=== PATIENT | male | born 1945 | race African-American/Black ===

== ENCOUNTER 2018-10-09 17:06 | Outpatient (CLI) | payer MEDICARE ==
[2018-10-09 18:09] LABS: INR-International Normal Ratio 1.9; PTT 38.2 SEC (22.9-36.1); Prothrombin Time 21.8 SEC (12.0-14.7)
[2018-10-09 18:22] LABS: ALT (SGPT) 18 U/L (8-55); AST (SGOT) 16 U/L (5-34); Albumin 3.5 g/dL (3.4-4.8); Alkaline Phosphatase 110 U/L (40-150); Anion Gap 10 mmol/L (10-20); BUN (Urea Nitrogen) 22 mg/dL (8.4-25.7); Bilirubin, Total 0.5 mg/dL (0.2-1.2); Calc. Creatinine Clearance 0 mL/min (70-130); Carbon Dioxide 31 mmol/L (23-31); Chloride 108 mmol/L (98-107); Estimated GFR-MDRD 53; Globulin 3.7 g/dL (2.4-3.5); Glucose 100 mg/dL (83-110); Potassium 4.1 mmol/L (3.5-5.1); Protein, Total 7.2 g/dL (5.8-8.1); Sodium 145 mmol/L (136-145)
[2018-10-09 18:43] LABS: #Basophils 0.1 thou/uL (0.0-0.2); #Eosinphils 0.2 thou/uL (0.0-0.7); #Lymphocytes 1.7 thou/uL (1.20-3.40); #Monocytes 0.4 thou/uL (0.11-0.59); %Basophils 1.1 % (0.0-1.0); %Eosinophils 3.2 % (0.0-10.0); %Lymphocytes 31.4 % (21.0-51.0); %Monocytes 7.9 % (0.0-10.0); %Neutrophils 56.5 % (42.0-75.0); Anisocytosis SLIGHT = 6-15 cells (100X) (0-5/hpf); Elliptocytes SLIGHT = 2-5 cells (100X) (0-1/hpf); Hypochromia SLIGHT = 6-15 cells (100X) (0-5/hpf); MDiff Complete? YES; Mean Corpuscular Hemoglobin 29.1 pg (27.0-31.0); Mean Corpuscular Volume 97.2 fL (78.0-98.0); Mean Platelet Volume 10.4 fL (7.4-10.4); PLT Morphology Comment Appears Decreased; Platelet Count 124 thou/uL (130-400); RBC Distribution Width 14.8 % (11.5-14.5); Red Blood Cell (RBC) Count 3.78 mill/uL (4.70-6.10); White Blood Cell (WBC) Count 5.3 thou/uL (4.8-10.8)
== END 2018-10-09 17:07 | disposition home or self-care (01) ==
LOC: LABBT 17:06
PROVIDERS: ATTEND Surgery
DX: Z01.818 Encounter for other preprocedural examination (principal); K40.90 Unilateral inguinal hernia, without obstruction or gangrene, not specified as recurrent
CPT/HCPCS: 80053; 85025; 85610; 85730

== ENCOUNTER 2018-10-13 06:03 | Day surgery (SDC) | payer MEDICARE ==
[2018-10-09 17:27] VITALS: BMI 29.8
[2018-10-13] MEDS ORDERED: Bupivacaine/Epinephrine 0.25% 30 ML VIAL ONE (06:35)
[2018-10-13 07:04] LABS: INR-International Normal Ratio 1.1; PTT 25.6 SEC (22.9-36.1); Prothrombin Time 13.8 SEC (12.0-14.7)
[2018-10-13] MEDS ORDERED: Fentanyl 100 MCG/2 ML VIAL ONE ×2 (07:28→09:00)
[2018-10-13] MEDS ORDERED: CEFAZOLIN 2 GM/50 ML BAG ONE (07:31)
--- NOTE | 2018-10-13 10:23 | OP ---
DATE OF PROCEDURE: 10/13/2018 PREOPERATIVE DIAGNOSIS: Right inguinal hernia. SURGEON: Dennis Zuniga M.D. PROCEDURE: Right inguinal hernia repair with mesh. INDICATIONS: This is a 73-year-old male who has a painful groin bulge in the right groin. FINDINGS: Right direct inguinal hernia. PROCEDURE IN DETAIL: After informed consent was obtained, the patient was taken to the operating elie m and given general endotracheal anesthesia. He was placed in the supine position. His groin area w as prepped and draped in usual fashion. Local anesthesia infiltrated subcutaneously and deep. A tra nsverse inguinal incision was performed. The subcu divided sharply. There was quite a bit of scar t issue in the area, almost as if it was a recurrent hernia. The external oblique fascia was incised i n direction of its fibers through the external ring. Then, the external oblique fascia was carefully dissected off of the floor as well as the cord structures. He had a large hernia that paralleled to the cord down into the scrotum. This was dissected out and off of the cord structures down to the i nternal ring, then it was circumscribed circumferentially at the internal ring and reduced. Reductio n was maintained with a large PHSC mesh placed in the preperitoneal space, layered anteriorly, suture d to the pubic tubercle with a 2-0 Prolene suture, tucked under the external oblique fascia laterally . Then a notch was cut out for the spermatic cord. Hemostasis was assured. The cord was placed moiz tomic. The external oblique fascia closed with a running 3-0 Vicryl. Martinez's closed with interrupt ed 3-0 Vicryl and the skin closed with a running subcuticular 4-0 Rapide. Steri-Strips applied. Juanpablo rile bandage applied. The patient tolerated the procedure well and was transferred to recovery in go od condition. Sponge and needle count verified correct x2.
[2018-10-13] MEDS ORDERED: HYDROcodone/Acetaminophen 5/325 mg Tablet ONE (11:23)
[2018-10-13] MEDS ORDERED: Lidocaine 1% PF 5 ML VIAL ONE (13:07)
[2018-10-13] MEDS ORDERED: PHENYLEPHRINE-NS 100 MCG/ML 10 ML SYRINGE ONE (13:07)
[2018-10-13] MEDS ORDERED: PROPOFOL 200 MG/20 ML VIAL ONE (13:07)
[2018-10-13] MEDS ORDERED: Ondansetron PF 4 MG/2 ML Vial ONE (13:07)
== END 2018-10-13 11:45 | disposition home or self-care (01) ==
LOC: SDC 06:03
PROVIDERS: ATTEND Surgery
PROC: 0YU50JZ Supplement Right Inguinal Region with Synthetic Substitute, Open Approach (ICD-10-PCS; principal; 2018-10-13)
DX: K40.90 Unilateral inguinal hernia, without obstruction or gangrene, not specified as recurrent (principal); E78.5 Hyperlipidemia, unspecified; I10 Essential (primary) hypertension; E11.9 Type 2 diabetes mellitus without complications; I42.9 Cardiomyopathy, unspecified; I25.10 Atherosclerotic heart disease of native coronary artery without angina pectoris; I48.0 Paroxysmal atrial fibrillation; E78.00 Pure hypercholesterolemia, unspecified; Z91.19 Patient's noncompliance with other medical treatment and regimen; Z79.4 Long term (current) use of insulin; Z79.899 Other long term (current) drug therapy
CPT/HCPCS: 49505; 82962; 85610; 85730; 96374; C1781; 36415; 36416; J2001; J2405; J2704; J3010

== ENCOUNTER 2019-02-08 20:18 | Inpatient (IN) | payer MEDICARE ==
[~2019-02-08 20:18] MED LIST: Aspirin Chewable 81 MG TAB ONE; Heparin 10,000 UNITS/ 10 ML VIAL ONE; Nitroglycerin 50 MG/250 ML BOT ONE; Sodium Chloride 0.9% 1,000 ML BAG ONE
[2019-02-08] MEDS ORDERED: Heparin 10,000 UNITS/1 ML VIAL ONE (20:44)
[2019-02-08 21:05] LABS: ALT (SGPT) 48 U/L (8-55); AST (SGOT) 255 U/L (5-34); Albumin 3.7 g/dL (3.4-4.8); Alkaline Phosphatase 105 U/L (40-150); Anion Gap 13 mmol/L (10-20); BUN (Urea Nitrogen) 24 mg/dL (8.4-25.7); Bilirubin, Total 0.6 mg/dL (0.2-1.2); CK (CPK) 2577 U/L (30-200); Calc. Creatinine Clearance 0 mL/min (70-130); Calcium 9.4 mg/dL (7.8-10.44); Carbon Dioxide 22 mmol/L (23-31); Chloride 106 mmol/L (98-107); Estimated GFR-MDRD 49; Globulin 4.2 g/dL (2.4-3.5); Glucose 222 mg/dL (83-110); Lipase 4 U/L (8-78); Potassium 4.5 mmol/L (3.5-5.1); Protein, Total 7.9 g/dL (5.8-8.1); Sodium 136 mmol/L (136-145)
[2019-02-08 21:06] LABS: INR-International Normal Ratio 1.1; PTT 30.9 SEC (22.9-36.1); Prothrombin Time 14.5 SEC (12.0-14.7)
[2019-02-08 21:17] LABS: #Eosinphils 0.1 thou/uL (0.0-0.7); #Monocytes 0.8 thou/uL (0.11-0.59); #Neutrophils 7.8 thou/uL (1.40-6.50); %Basophils 0.2 % (0.0-1.0); %Eosinophils 0.6 % (0.0-10.0); %Lymphocytes 10.1 % (21.0-51.0); %Monocytes 8.6 % (0.0-10.0); %Neutrophils 80.4 % (42.0-75.0); Hemoglobin 12.4 g/dL (14.0-18.0); Mean Corpuscular HGB CONC 30.6 g/dL (32.0-36.0); Mean Corpuscular Hemoglobin 29.7 pg (27.0-31.0); Mean Corpuscular Volume 97.2 fL (78.0-98.0); Mean Platelet Volume 11.2 fL (7.4-10.4); Platelet Count 113 thou/uL (130-400); Platelet Morphology Comment Appears Decreased; Red Blood Cell (RBC) Count 4.17 mill/uL (4.70-6.10); White Blood Cell (WBC) Count 9.7 thou/uL (4.8-10.8)
[2019-02-08] MEDS ORDERED: Bivalirudin 250 MG VIAL ONE (21:41)
[2019-02-08 21:42] LABS: CKMB 169.4 ng/mL (0-6.6)
[2019-02-08] MEDS ORDERED: Clopidogrel Bisulfate 300 MG TAB ONE (21:49)
[2019-02-08] MEDS ORDERED: Nitroglycerin 0.4 MG TAB (25 Tab Bottle) SL PRN (22:14)
[2019-02-08] MEDS ORDERED: Morphine 2 MG/ML SYRINGE SLOW IVP PRN (22:14)
[2019-02-08] MEDS ORDERED: Nitroglycerin 50 MG/250 ML BOT 250 ML IVPB SCH (22:15)
[2019-02-08] MEDS ORDERED: Sodium Chloride 0.9% 1,000 ML IV SCH (22:15)
--- NOTE | 2019-02-08 22:56 | RAD ---
PORTABLE AP CHEST X-RAY 02/08/19 HISTORY: Chest pain. COMPARISON: 02/03/17. FINDINGS: Dual lead left subclavian cardiac AICD device remains in place. The cardiac silhouette is enlarged. P ulmonary vasculature is at the upper limits of normal but also magnified by projection. No consolidat ion or pleural is appreciated. Vascular calcifications are seen in the thoracic aorta. There has been no interval change from prior exam. IMPRESSION: Stable chest with cardiomegaly and pulmonary vasculature at the upper limits of normal. POS: MARTINEZ
--- NOTE | 2019-02-09 03:02 | HP ---
HISTORY OF PRESENT ILLNESS: Joe Red is a 73-year-old black male, that I have followed since March 2003. At that time, he was found to have a nonischemic cardiomyopathy and underwent cardiac catheterization. His ejection fraction was 30% to 35%. There was a 30% mid LAD lesion and 10% mid RCA lesion. He has continued to have poor left ventricular function, and ultimately had a dual-chamber ICD placed. He also underwent flutter ablation by Dr. Hopson in June 2011 and atrial fibrillation ablation in April 2013. He has been maintained on warfarin; since that time. He continues to have short episodes of a fib lasting approximately 30 seconds, but nothing prolonged. He had not been seen for several years and has always been noncompliant with followups. He was seen in the office in September 2018 for preoperative evaluation. He underwent Lexiscan Cardiolite testing, which revealed no evidence of ischemia or fixed defect. There were septal akinesis and normal myocardial thickening. Ejection fraction was 37%. Echocardiogram at that time revealed ejection fraction of 35% to 40% with moderate mitral regurgitation. He underwent right inguinal herniorrhaphy by Dr. Dennis Zuniga without incident. He has never had any significant chest discomfort. He does admit to not taking some of his medications recently, but he cannot remember what he has run out of. Then, this morning at 1 to 2 a.m., he noted substernal chest pressure. The pain has been continuous until he arrived to the emergency room around 8:30 or 9 p.m. Total duration of his pain has been at least 20 hours. The pain did somewhat worsen, so he came to the emergency room. He does admit to some shortness of breath and nausea, but no diaphoresis. 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 PAST SURGICAL HISTORY: ICD placement, ablation of atrial flutter and atrial fibrillation, inguinal herniorrhaphy. MEDICATIONS: 1. Atorvastatin 80 at bedtime. 2. Carvedilol 25 b.i.d. 3. Vitamin D3. 4. Zetia 10 mg at bedtime. 5. Furosemide 20 q.a.m. 6. Lantus 32 units b.i.d. 7. Levothyroxine 50 mcg daily. 8. Lisinopril 20 daily. 9. Warfarin 5 mg as directed. ALLERGIES: NONE. FAMILY HISTORY: Positive for coronary artery disease. REVIEW OF SYSTEMS: A 10-point review of systems is unremarkable. PHYSICAL EXAMINATION: VITAL SIGNS: Blood pressure 120/80, pulse of 110. HEENT: PERRL. NECK: Supple. CHEST: Clear. CARDIAC: S1 and S2 normal without any S3, S4, or murmurs. ABDOMEN: Normal bowel sounds without tenderness. EXTREMITIES: Revealed 2+ pretibial edema. NEUROLOGIC: Stable. LABORATORY DATA: EKG revealed sinus tachycardia with multiple PACs and new Q- waves V4 to V5 with 2 to [address]-segment elevation. These changes are new from previous EKG. Hemoglobin 12.4, hematocrit 40.6, white count 9700, and platelets 113,000. INR 1.1. Sodium 136, potassium 4.5, chloride 106, carbon dioxide 22, BUN 24, creatinine 1.67. CK 2577, CK-MB 169.4, troponin-I is 70.432. IMPRESSION: 1. Anterolateral ST-elevation myocardial infarction. 2. Nonischemic cardiomyopathy with last ejection fraction of 35% to 40%. 3. Status post dual-chamber ICD placement. 4. Hypertension. 5. Diabetes. 6. Hypercholesterolemia. 7. Positive family history. 8. History of cerebrovascular accident with aphasia in 2012. 9. Noncompliance with followups and apparently some medicines recently. 10. Paroxysmal atrial fibrillation, status post atrial flutter ablation and atrial fibrillation ablation. PLAN: The situation discussed with the patient. It was recommended that he undergo emergent catheterization. Risks were discussed including , myocardial infarction, dye reaction, vascular injury, CVA, transfusion, limb loss, renal loss, etc. Risks of intervention with stent placement were discussed including , myocardial infarction, emergent CABG, restenosis, stent thrombosis, vessel perforation, etc. With the need for chronic anticoagulation and his history of noncompliance, I would only place a bare-metal stent. Job ID: [id number] [facility]
[2019-02-09 03:28] LABS: CKMB 267.8 ng/mL (0-6.6)
[2019-02-09 04:16] LABS: Troponin I 601.184 ng/mL (< 0.028)
[2019-02-09 04:19] LABS: #Basophils 0.1 thou/uL (0.0-0.2); #Lymphocytes 1.1 thou/uL (1.20-3.40); #Monocytes 1.4 thou/uL (0.11-0.59); #Neutrophils 9.3 thou/uL (1.40-6.50); %Basophils 0.4 % (0.0-1.0); %Monocytes 12.1 % (0.0-10.0); %Neutrophils 78.4 % (42.0-75.0); Hemoglobin 10.1 g/dL (14.0-18.0); Mean Corpuscular HGB CONC 31.4 g/dL (32.0-36.0); Mean Corpuscular Hemoglobin 29.9 pg (27.0-31.0); Mean Corpuscular Volume 95.3 fL (78.0-98.0); Mean Platelet Volume 10.6 fL (7.4-10.4); Platelet Count 97 thou/uL (130-400); Red Blood Cell (RBC) Count 3.37 mill/uL (4.70-6.10); White Blood Cell (WBC) Count 11.9 thou/uL (4.8-10.8)
[2019-02-09 04:29] LABS: ALT (SGPT) 69 U/L (8-55); AST (SGOT) 481 U/L (5-34); Alkaline Phosphatase 77 U/L (40-150); Anion Gap 13 mmol/L (10-20); BUN (Urea Nitrogen) 23 mg/dL (8.4-25.7); Bilirubin, Total 0.6 mg/dL (0.2-1.2); Calc. Creatinine Clearance 68 mL/min (70-130); Calcium 8.6 mg/dL (7.8-10.44); Carbon Dioxide 19 mmol/L (23-31); Cardiac Risk 4.6 (Less than 4.5); Chloride 112 mmol/L (98-107); Cholesterol 143 mg/dl (< 200 Desired); Estimated GFR-MDRD 64; Globulin 3.3 g/dL (2.4-3.5); Glucose 177 mg/dL (83-110); HDL Cholesterol 31 mg/dL (>60 Neg Risk); LDL Cholesterol, Calculated 96 mg/dL; Potassium 4.5 mmol/L (3.5-5.1); Protein, Total 6.3 g/dL (5.8-8.1); Sodium 139 mmol/L (136-145); Triglycerides 78 mg/dL (Less than 150)
[2019-02-09] MEDS: Levothyroxine Sodium 50 MCG TAB PO SCH (05:14)
[2019-02-09] MEDS: Carvedilol 6.25 MG TAB PO SCH ×2 (07:45→16:32)
--- NOTE | 2019-02-09 08:43 | CCL ---
CARDIAC CATHETERIZATION REPORT: Date: 02/08/19 PROCEDURE: Coronary arteriography. Stent placement in the proximal to mid LAD. INDICATION: Anterolateral STEMI. DESCRIPTION OF PROCEDURE: The patient was brought from the emergency room to the cardiac lab associate and the right groin was prepped and draped in the usual fashion. 1% lidocaine was infiltrated. A 6 Lithuanian sheath was placed into the right femoral artery. A 6 Lithuanian right-4 diagnostic catheter was inserted for right coronary arteriography. This was removed and a 6 Lithuanian Luana left-4 guide was inserted. There was difficulty in torquing the left-4, so the decision was made to change to a Destination sheath. The 6 Lithuanian sheath was removed and a 6 Lithuanian Destination sheath was inserted over a wire. Due to the unusual takeoff of the left main, a left-3.5 guide was then inserted. An extra support wire was advanced to the distal LAD. There was a significant amount of difficulty in crossing the area of total stenosis, which had been closed for approximately 21 hours. Angiomax bolus and drip were given. Plavix 600 mg was given po. Emerge 3.0 x 15 mm balloon was then used to predilate the area. Rebel 3.0 x 32 mm stent was then positioned in the proximal to mid LAD and deployed. Final result was excellent with EVANGELINA 3 flow. The guide catheter was removed. The Destination sheath was exchanged over a wire for a 6 Lithuanian short sheath. This was then sutured in place and the patient was transferred to the CCU. RESULTS: CORONARY ARTERIOGRAPHY: 1. The left main was normal. 2. The LAD had a 50% proximal stenosis and was totally occluded in its mid portion. 3. The circumflex was normal. 4. The right coronary artery had a 20% mid stenosis and a 20% distal stenosis. INTERVENTION RESULTS: The initial 50% lesion was reduced to 0%. The occluded area was reduced to 0%. IMPRESSION: 1. One vessel coronary artery disease. 2. Successful bare metal stent placement in the proximal to mid LAD. [facility]
[2019-02-09] MEDS ORDERED: Dextrose 5% in Water 1,000 ML IV PRN (08:45)
[2019-02-09] MEDS ORDERED: Dextrose 50% Abboject 50 ML SYRINGE SLOW IVP PRN (08:45)
[2019-02-09] MEDS: Torsemide 20 MG TAB PO SCH (08:52)
[2019-02-09] MEDS: Clopidogrel Bisulfate 75 MG TAB PO SCH (08:52)
[2019-02-09] MEDS: Aspirin Chewable 81 MG TAB PO SCH (08:52)
[2019-02-09] MEDS: Ezetimibe 10 MG TAB PO SCH (08:52)
--- NOTE | 2019-02-09 12:33 | EKG ---
Test Reason : Blood Pressure : / mmHG Vent. Rate : 107 BPM Atrial Rate : 107 BPM P-R Int : 178 ms QRS Dur : 096 ms QT Int : 344 ms P-R-T Axes : 067 137 105 degrees QTc Int : 459 ms Sinus tachycardia with Premature atrial complexes Low voltage QRS Inferior infarct , age undetermined Anterolateral infarct , possibly acute * ACUTE NV * Abnormal ECG Confirmed by FRANKLYN FUENTES DO ([id number]), assistant film editor KAITLIN STONE ([id number]) on 02/09/2019 12:32:31 PM Referred By: Confirmed By:FRANKLYN FUENTES DO
--- NOTE | 2019-02-09 14:32 | PDOC.PN ---
- Subjective Encounter Start Date: 02/09/19 Encounter Start Time: 10:30 -: old records requested/rev Patient seen and examined. No new complaints. No overnight events - Objective MAR Reviewed: Yes Vital Signs & Weight: Vital Signs (12 hours) Temp BP Pulse Ox 02/09/19 07:45 112/77 02/09/19 07:14 99 02/09/19 07:00 98.4 F 02/09/19 03:00 98.5 F Weight Weight 206 lb 9.17 oz Most Recent Monitor Data Heart Rate from ECG 84 NIBP 106/72 NIBP BP-Mean 83 Respiration from ECG 22 SpO2 96 I&O: 02/08/19 02/09/19 02/10/19 06:59 06:59 06:59 Intake Total 1118 960 Output Total 200 350 Balance 918 610 Result Diagrams: 02/09/19 03:50 02/09/19 03:50 Additional Labs: Accuchecks 02/09/19 02/08/19 10:58 20:36 POC Glucose 130 H 174 H Radiology Reviewed by me: Yes EKG Reviewed by me: Yes Phys Exam - Physical Examination Constitutional: NAD HEENT: PERRLA, moist MMs, sclera anicteric Neck: no JVD, supple Respiratory: no wheezing, no rales, no rhonchi Cardiovascular: RRR, no significant murmur, no rub Gastrointestinal: soft, non-tender, no distention, positive bowel sounds Musculoskeletal: no edema, pulses present Neurological: non-focal, normal sensation Lymphatic: no nodes Psychiatric: normal affect, A&O x 3 Skin: no rash, normal turgor Dx/Plan (1) Anterolateral myocardial infarction Code(s): I21.09 - STEMI INVOLVING OTH CORONARY ARTERY OF ANTERIOR WALL Status : Acute (2) AICD (automatic cardioverter/defibrillator) present Code(s): Z95.810 - PRESENCE OF AUTOMATIC (IMPLANTABLE) CARDIAC DEFIBRILLATOR Status: Chronic (3) CKD (chronic kidney disease) stage 3, GFR 30-59 ml/min Code(s): N18.3 - CHRONIC KIDNEY DISEASE, STAGE 3 (MODERATE) Status: Chronic (4) Chronic anticoagulation Code(s): Z79.01 - BISTRO ATTENDANT (CURRENT) USE OF ANTICOAGULANTS Status: Chronic (5) Chronic systolic heart failure, ACC/AHA stage C Code(s): I50.22 - CHRONIC SYSTOLIC (CONGESTIVE) HEART FAILURE Status: Chronic (6) DM2 (diabetes mellitus, type 2) Status: Chronic (7) H/O: CVA (cerebrovascular accident) Code(s): Z86.73 - PRSNL HX OF TIA (TIA), AND CEREB INFRC W/O RESID DEFICITS Status: Chronic (8) HLD (hyperlipidemia) Code(s): E78.5 - HYPERLIPIDEMIA, UNSPECIFIED Status: Chronic (9) HTN (hypertension) Code(s): I10 - ESSENTIAL (PRIMARY) HYPERTENSION Status: Chronic (10) PAF (paroxysmal atrial fibrillation) Code(s): I48.0 - PAROXYSMAL ATRIAL FIBRILLATION Status: Chronic - Plan cont current plan of care * medication reviewed as below * symptomatic treatment * hyperglycemia protocol order started * cardiac management as per cardio. Review of Systems - Review of Systems ENT: negative: Ear Pain, Ear Discharge, Nose Pain, Nose Discharge, Nose Congestion, Mouth Pain, Mouth Swelling, Throat Pain, Throat Swelling, Other Respiratory: negative: Cough, Dry, Shortness of Breath, Hemoptysis, SOB with Excertion, Pleuritic Pain, Sputum, Wheezing Cardiovascular: negative: chest pain, palpitations, orthopnea, paroxysmal nocturnal dyspnea, edema, light headedness, other Gastrointestinal: negative: Nausea, Vomiting, Abdominal Pain, Diarrhea, Constipation, Melena, Hematochezia, Other Genitourinary: negative: Dysuria, Frequency, Incontinence, Hematuria, Retention , Other Musculoskeletal: negative: Neck Pain, Shoulder Pain, Arm Pain, Back Pain, Hand Pain, Leg Pain, Foot Pain, Other - Medications/Allergies Allergies/Adverse Reactions: Allergies Allergy/AdvReac Type Severity Reaction Status Date / Time No Known Allergies Allergy Verified 02/08/19 22:58 Medications: Current Medications Aspirin (Aspirin Chewable) 81 mg PO DAILY [facility] Last Admin: 02/09/19 08:52 Dose: 81 mg Atorvastatin Calcium (Lipitor) 80 mg PO [facility] Carvedilol (Coreg) 12.5 mg PO BID-[facility] Last Admin: 02/09/19 07:45 Dose: 12.5 mg Clopidogrel Bisulfate (Plavix) 75 mg PO DAILY [facility] Last Admin: 02/09/19 08:52 Dose: 75 mg Dextrose/Water (Dextrose 50%) 25 gm SLOW IVP PRN PRN PRN Reason: Hypoglycemia Ezetimibe (Zetia) 10 mg PO DAILY [facility] Last Admin: 02/09/19 08:52 Dose: 10 mg Glucagon (Glucagon) 1 mg IM PRN PRN PRN Reason: Hypoglycemia Dextrose/Water (D5w) 1,000 mls @ 0 mls/hr IV .Q0M PRN PRN Reason: Hypoglycemia Insulin Human Lispro (Humalog) 0 units SC .MODERATE SLIDING SC PRN PRN Reason: Moderate Correctional Scale Insulin Human Lispro (Humalog) 0 units SC .BEDTIME SLIDING SC PRN PRN Reason: Bedtime Correctional Scale Levothyroxine Sodium (Synthroid) 50 mcg PO 0600 [facility] Last Admin: 02/09/19 05:14 Dose: 50 mcg Morphine Sulfate (Morphine) 2 mg SLOW IVP Q4H PRN PRN Reason: Moderate Chest Pain (4-6) Last Admin: 02/08/19 23:31 Dose: 2 mg Nitroglycerin (Nitrostat) 0.4 mg SL Q5MIN PRN PRN Reason: Chest Pain Torsemide (Demadex) 20 mg PO DAILY [facility] Last Admin: 02/09/19 08:52 Dose: 20 mg Warfarin Sodium (Coumadin) 7.5 mg PO 1700 [facility]
[2019-02-09] MEDS: HumaLOG 300 UNITS/3 ML VIAL SC PRN (16:06)
--- NOTE | 2019-02-09 16:17 | EKG ---
Test Reason : POST CATH Blood Pressure : / mmHG Vent. Rate : 088 BPM Atrial Rate : 088 BPM P-R Int : 196 ms QRS Dur : 090 ms QT Int : 390 ms P-R-T Axes : 000 151 101 degrees QTc Int : 471 ms Suspect arm lead reversal, interpretation assumes no reversal Electronic atrial pacemaker Low voltage QRS Inferior infarct , age undetermined Anterolateral infarct , possibly acute * ACUTE OR * Abnormal ECG When compared with ECG of 22-MAY-2016 13:22, Significant changes have occurred Confirmed by DR. Misael ECHOLS ([id number]) on 02/09/2019 4:17:00 PM Referred By: Georgiana SHORT Confirmed By:DR. Misael ECHOLS
[2019-02-09] MEDS ORDERED: Warfarin Sodium 7.5 MG TAB PO SCH (17:00)
--- NOTE | 2019-02-09 20:44 | CON ---
DATE OF CONSULTATION: 02/09/2019 HISTORY OF PRESENT ILLNESS: Joe Red is a 73-year-old male. He presented with an ST-elevation myocardial infarction, had coronary stenting performed yesterday by Dr. Guzmán. He is stable, was actually awakened from sleep with no chest pain this morning. PAST MEDICAL HISTORY: Remarkable for 1. Left ventricular systolic dysfunction with nonischemic cardiomyopathy and an ejection fraction of 30% back in 2002. 2. Status post placement of a defibrillator. 3. Status post atrial flutter ablation in 2010. 4. Status post atrial fibrillation ablation in 2012. 5. Chronic anticoagulation. 6. Moderate mitral regurgitation on echo in 2018. 7. History of questionable medical compliance with medication. 8. History of hypertension. 9. Lipid disorder. 10. Diabetes. 11. History of cerebrovascular accident with speech difficulties in 2011. 12. Chronic kidney disease. 13. History of a herniorrhaphy in the past. MEDICATIONS: Prior to admission, 1. He is on atorvastatin. 2. Coreg. 3. Zetia. 4. Lasix. 5. Lantus. 6. Synthroid. 7. Lisinopril. 8. Warfarin. SOCIAL HISTORY: He is a nonsmoker, nondrinker. ALLERGIES: HE HAS NO DRUG ALLERGIES. FAMILY HISTORY: He has a family history of coronary artery disease. No history of lung disease in early age. REVIEW OF SYSTEMS: A 10-point review of systems completed, otherwise negative. PHYSICAL EXAMINATION: GENERAL: Today, he is flat in bed, in no distress. VITAL SIGNS: Blood pressure 107/76 this afternoon, heart rate is 90, respiratory rate is in the 20s. HEENT: Pupils are equally reactive. Sclerae are anicteric. Extraocular movements are full. NECK: Without lymphadenopathy. LUNGS: Clear. HEART: Regular rhythm. S1 and S2 are normal. He has a grade 2/6 systolic murmur. ABDOMEN: Soft and nontender. EXTREMITIES: Without clubbing, cyanosis or edema. LABORATORY DATA: White count 11.9, hemoglobin 10.1, platelets 97,000. Sodium 139, potassium 4.5, chloride 112, bicarb 19, BUN 23, creatinine 1.33. IMPRESSION: Status post coronary stenting, clinically stable. We will follow with the other physicians caring for TIME SPENT: This is a 70-minute consult, with greater than 50% of the time was spent on the unit coordinating care. Job ID: [id number] [facility]TD[facility]
[2019-02-09] MEDS: Atorvastatin Calcium 40 MG TAB PO SCH (21:32)
[2019-02-10 05:04] LABS: INR-International Normal Ratio 2.5; Prothrombin Time 27.3 SEC (12.0-14.7)
[2019-02-10 05:20] LABS: #Lymphocytes 1.2 thou/uL (1.20-3.40); #Monocytes 1.3 thou/uL (0.11-0.59); #Neutrophils 9.1 thou/uL (1.40-6.50); %Basophils 0.3 % (0.0-1.0); %Eosinophils 0.2 % (0.0-10.0); %Lymphocytes 10.1 % (21.0-51.0); %Monocytes 11.3 % (0.0-10.0); %Neutrophils 78.1 % (42.0-75.0); Hemoglobin 10.6 g/dL (14.0-18.0); Mean Corpuscular HGB CONC 31.3 g/dL (32.0-36.0); Mean Corpuscular Hemoglobin 29.8 pg (27.0-31.0); Mean Corpuscular Volume 95.2 fL (78.0-98.0); Mean Platelet Volume 11.9 fL (7.4-10.4); Platelet Count 87 thou/uL (130-400); RBC Distribution Width 14.2 % (11.5-14.5); Red Blood Cell (RBC) Count 3.56 mill/uL (4.70-6.10); White Blood Cell (WBC) Count 11.6 thou/uL (4.8-10.8)
[2019-02-10 05:24] LABS: Anion Gap 11 mmol/L (10-20); BUN (Urea Nitrogen) 32 mg/dL (8.4-25.7); Calc. Creatinine Clearance 49 mL/min (70-130); Calcium 9.1 mg/dL (7.8-10.44); Carbon Dioxide 21 mmol/L (23-31); Chloride 113 mmol/L (98-107); Estimated GFR-MDRD 45; Glucose 81 mg/dL (83-110); Potassium 4.6 mmol/L (3.5-5.1); Sodium 140 mmol/L (136-145)
[2019-02-10] MEDS: Levothyroxine Sodium 50 MCG TAB PO SCH (05:59)
[2019-02-10] MEDS: Clopidogrel Bisulfate 75 MG TAB PO SCH (07:40)
[2019-02-10] MEDS: Aspirin Chewable 81 MG TAB PO SCH (07:40)
[2019-02-10] MEDS: Torsemide 20 MG TAB PO SCH (07:40)
[2019-02-10] MEDS: Ezetimibe 10 MG TAB PO SCH (07:40)
[2019-02-10] MEDS: Carvedilol 6.25 MG TAB PO SCH (07:40)
--- NOTE | 2019-02-10 10:50 | PDOC.PN ---
- Subjective Encounter Start Date: 02/10/19 Encounter Start Time: 09:50 Patient seen and examined. No new complaints. No overnight events - Objective MAR Reviewed: Yes Vital Signs & Weight: Vital Signs (12 hours) Temp BP Pulse Ox 02/10/19 08:00 97 02/10/19 07:40 107/76 02/10/19 07:00 98.1 F 02/10/19 04:00 98.6 F 02/10/19 00:00 98.8 F Weight Weight 214 lb 8.156 oz Most Recent Monitor Data Heart Rate from ECG 86 NIBP 87/62 NIBP BP-Mean 70 Respiration from ECG 27 SpO2 93 I&O: 02/09/19 02/10/19 02/11/19 06:59 06:59 06:59 Intake Total 1118 1200 290 Output Total 200 1275 Balance 918 -75 290 Result Diagrams: 02/10/19 04:04 02/10/19 04:04 Additional Labs: Accuchecks 02/10/19 02/09/19 02/09/19 05:59 21:33 15:58 POC Glucose 84 113 H 169 H 02/09/19 10:58 POC Glucose 130 H EKG Reviewed by me: Yes (nsr) Phys Exam - Physical Examination Constitutional: NAD HEENT: PERRLA, moist MMs, sclera anicteric Neck: no JVD, supple Respiratory: no wheezing, no rales, no rhonchi Cardiovascular: RRR, no significant murmur, no rub Gastrointestinal: soft, non-tender, no distention, positive bowel sounds Musculoskeletal: no edema, pulses present Neurological: non-focal, normal sensation Lymphatic: no nodes Psychiatric: normal affect, A&O x 3 Skin: no rash, normal turgor Dx/Plan (1) Anterolateral myocardial infarction Code(s): I21.09 - STEMI INVOLVING OTH CORONARY ARTERY OF ANTERIOR WALL Status : Acute (2) AICD (automatic cardioverter/defibrillator) present Code(s): Z95.810 - PRESENCE OF AUTOMATIC (IMPLANTABLE) CARDIAC DEFIBRILLATOR Status: Chronic (3) CKD (chronic kidney disease) stage 3, GFR 30-59 ml/min Code(s): N18.3 - CHRONIC KIDNEY DISEASE, STAGE 3 (MODERATE) Status: Chronic (4) Chronic anticoagulation Code(s): Z79.01 - HALFWAY (CURRENT) USE OF ANTICOAGULANTS Status: Chronic (5) Chronic systolic heart failure, ACC/AHA stage C Code(s): I50.22 - CHRONIC SYSTOLIC (CONGESTIVE) HEART FAILURE Status: Chronic (6) DM2 (diabetes mellitus, type 2) Status: Chronic (7) H/O: CVA (cerebrovascular accident) Code(s): Z86.73 - PRSNL HX OF TIA (TIA), AND CEREB INFRC W/O RESID DEFICITS Status: Chronic (8) HLD (hyperlipidemia) Code(s): E78.5 - HYPERLIPIDEMIA, UNSPECIFIED Status: Chronic (9) HTN (hypertension) Code(s): I10 - ESSENTIAL (PRIMARY) HYPERTENSION Status: Chronic (10) PAF (paroxysmal atrial fibrillation) Code(s): I48.0 - PAROXYSMAL ATRIAL FIBRILLATION Status: Chronic - Plan cont current plan of care * medication reviewed as below * symptomatic treatment * medically stable * diabetes controlled * transfer to the [facility] will defer to cardiology * will monitor. Review of Systems - Review of Systems ENT: negative: Ear Pain, Ear Discharge, Nose Pain, Nose Discharge, Nose Congestion, Mouth Pain, Mouth Swelling, Throat Pain, Throat Swelling, Other Respiratory: negative: Cough, Dry, Shortness of Breath, Hemoptysis, SOB with Excertion, Pleuritic Pain, Sputum, Wheezing Cardiovascular: negative: chest pain, palpitations, orthopnea, paroxysmal nocturnal dyspnea, edema, light headedness, other Gastrointestinal: negative: Nausea, Vomiting, Abdominal Pain, Diarrhea, Constipation, Melena, Hematochezia, Other Genitourinary: negative: Dysuria, Frequency, Incontinence, Hematuria, Retention , Other Musculoskeletal: negative: Neck Pain, Shoulder Pain, Arm Pain, Back Pain, Hand Pain, Leg Pain, Foot Pain, Other Skin: negative: Rash, Lesions, Kenny, Bruising, Other - Medications/Allergies Allergies/Adverse Reactions: Allergies Allergy/AdvReac Type Severity Reaction Status Date / Time No Known Allergies Allergy Verified 02/08/19 22:58 Medications: Current Medications Aspirin (Aspirin Chewable) 81 mg PO DAILY [facility] Last Admin: 02/10/19 07:40 Dose: 81 mg Atorvastatin Calcium (Lipitor) 80 mg PO HS [facility] Last Admin: 02/09/19 21:32 Dose: 80 mg Carvedilol (Coreg) 12.5 mg PO BID-[facility] Last Admin: 02/10/19 07:40 Dose: 12.5 mg Clopidogrel Bisulfate (Plavix) 75 mg PO DAILY [facility] Last Admin: 02/10/19 07:40 Dose: 75 mg Dextrose/Water (Dextrose 50%) 25 gm SLOW IVP PRN PRN PRN Reason: Hypoglycemia Ezetimibe (Zetia) 10 mg PO DAILY [facility] Last Admin: 02/10/19 07:40 Dose: 10 mg Glucagon (Glucagon) 1 mg IM PRN PRN PRN Reason: Hypoglycemia Dextrose/Water (D5w) 1,000 mls @ 0 mls/hr IV .Q0M PRN PRN Reason: Hypoglycemia Insulin Human Lispro (Humalog) 0 units SC .MODERATE SLIDING SC PRN PRN Reason: Moderate Correctional Scale Last Admin: 02/09/19 16:06 Dose: 2 unit Insulin Human Lispro (Humalog) 0 units SC .BEDTIME SLIDING SC PRN PRN Reason: Bedtime Correctional Scale Levothyroxine Sodium (Synthroid) 50 mcg PO 0600 [facility] Last Admin: 02/10/19 05:59 Dose: 50 mcg Morphine Sulfate (Morphine) 2 mg SLOW IVP Q4H PRN PRN Reason: Moderate Chest Pain (4-6) Last Admin: 02/08/19 23:31 Dose: 2 mg Nitroglycerin (Nitrostat) 0.4 mg SL Q5MIN PRN PRN Reason: Chest Pain Torsemide (Demadex) 20 mg PO DAILY [facility] Last Admin: 02/10/19 07:40 Dose: 20 mg Warfarin Sodium (Coumadin) 7.5 mg PO 1700 [facility] Last Admin: 02/09/19 16:33 Dose: 7.5 mg
[2019-02-10] MEDS: HumaLOG 300 UNITS/3 ML VIAL SC PRN ×2 (17:06→20:24)
[2019-02-10] MEDS: Atorvastatin Calcium 40 MG TAB PO SCH (20:30)
--- NOTE | 2019-02-10 23:49 | PRG ---
DATE OF SERVICE: 02/10/2019 SUBJECTIVE: Mr. Red has remained stable. He is sitting up in a chair. He is very pleasant and cooperative. OBJECTIVE: VITAL SIGNS: He is afebrile. Heart rate 80, blood pressure 103/69, respiratory rate in the teens. LUNGS: Clear. HEART: Regular rhythm. S1 and S2 are normal. ABDOMEN: Soft and nontender. EXTREMITIES: Without clubbing, cyanosis, or edema. LABORATORY DATA: White count 11.6, hemoglobin 10.6, platelets 87. Sodium 140, potassium 4.6, chloride 113, bicarb 21, BUN 32, creatinine 1.79. His creatinine bumped from 1.3 to 1.7. This perhaps is a little delayed effect of the contrast with his cardiac catheterization. IMPRESSION: 1. Myocardial infarction. 2. Status post coronary artery stenting. 3. Acute on chronic kidney disease. 4. History of a cerebrovascular accident with speech difficulties. He is, however, very pleasant and cooperative. We will continue supportive care. Job ID: [id number]
[2019-02-11 04:58] LABS: INR-International Normal Ratio 2.3; Prothrombin Time 25.5 SEC (12.0-14.7)
[2019-02-11 04:59] LABS: Anion Gap 11 mmol/L (10-20); BUN (Urea Nitrogen) 52 mg/dL (8.4-25.7); Calc. Creatinine Clearance 40 mL/min (70-130); Calcium 8.8 mg/dL (7.8-10.44); Carbon Dioxide 24 mmol/L (23-31); Chloride 110 mmol/L (98-107); Estimated GFR-MDRD 34; Glucose 130 mg/dL (83-110); Potassium 4.3 mmol/L (3.5-5.1); Sodium 141 mmol/L (136-145)
[2019-02-11 05:17] LABS: #Eosinphils 0.1 thou/uL (0.0-0.7); #Lymphocytes 1.3 thou/uL (1.20-3.40); #Monocytes 0.8 thou/uL (0.11-0.59); #Neutrophils 6.7 thou/uL (1.40-6.50); %Basophils 0.4 % (0.0-1.0); %Eosinophils 1.1 % (0.0-10.0); %Lymphocytes 14.6 % (21.0-51.0); %Monocytes 9.4 % (0.0-10.0); %Neutrophils 74.5 % (42.0-75.0); Hemoglobin 9.5 g/dL (14.0-18.0); Large Platelets SLIGHT; MDiff Complete? YES; Mean Corpuscular HGB CONC 31.3 g/dL (32.0-36.0); Mean Corpuscular Volume 95.8 fL (78.0-98.0); Mean Platelet Volume 11.8 fL (7.4-10.4); Platelet Count 91 thou/uL (130-400); Platelet Morphology Comment Appears Decreased; RBC Distribution Width 14.2 % (11.5-14.5); Red Blood Cell (RBC) Count 3.17 mill/uL (4.70-6.10)
[2019-02-11] MEDS: Levothyroxine Sodium 50 MCG TAB PO SCH (06:13)
[2019-02-11] MEDS: Carvedilol 6.25 MG TAB PO SCH ×2 (08:35→18:06)
[2019-02-11] MEDS: Aspirin Chewable 81 MG TAB PO SCH (08:49)
[2019-02-11] MEDS: Clopidogrel Bisulfate 75 MG TAB PO SCH (08:49)
[2019-02-11] MEDS: Ezetimibe 10 MG TAB PO SCH (08:49)
[2019-02-11] MEDS: Torsemide 20 MG TAB PO SCH (08:50)
[2019-02-11] MEDS ORDERED: Sodium Chloride 0.65% Nasal 44 ML BOT EA NARE PRN (09:11)
[2019-02-11] MEDS ORDERED: Zolpidem Tartrate 5 MG TAB PO PRN (09:11)
[2019-02-11] MEDS ORDERED: Diabetic Tussin 200 MG/10 ML UDCUP PO PRN (09:11)
[2019-02-11] MEDS ORDERED: hydrALAZINE 20 MG/ML VIAL SLOW IVP PRN (09:11)
[2019-02-11] MEDS ORDERED: Loperamide HCl 2 MG CAP PO PRN (09:11)
[2019-02-11] MEDS ORDERED: HYDROcodone/Acetaminophen 5/325 mg Tablet PO PRN (09:11)
[2019-02-11] MEDS ORDERED: Bisacodyl 5 MG TAB PO PRN (09:11)
[2019-02-11] MEDS ORDERED: Metoclopramide HCl 10 MG/2 ML VIAL IVP PRN (09:11)
[2019-02-11] MEDS ORDERED: Artificial Tears 18 DROP/0.9 ML EA EYE PRN (09:11)
[2019-02-11] MEDS ORDERED: Senokot S 8.6-50 MG TAB PO PRN (09:11)
[2019-02-11] MEDS ORDERED: Eucerin (Mineral Oil/Petrolatum,White) 30 gm Jar TOP PRN (09:11)
[2019-02-11] MEDS ORDERED: Cepastat Lozenges 1 LOZ PO PRN (09:11)
[2019-02-11] MEDS ORDERED: Loratadine 10 MG TAB PO PRN (09:11)
--- NOTE | 2019-02-11 09:11 | PDOC.PN ---
- Subjective Encounter Start Date: 02/11/19 Encounter Start Time: 06:30 pt is seated in chair, no chest pain, no dizziness or dyspnea - Objective MAR Reviewed: Yes Vital Signs & Weight: Vital Signs (12 hours) Temp 02/11/19 04:00 98.6 F 02/11/19 00:00 99.5 F Weight Weight 211 lb 6.773 oz Most Recent Monitor Data Heart Rate from ECG 91 NIBP 118/78 NIBP BP-Mean 91 Respiration from ECG 10 SpO2 99 I&O: 02/10/19 02/11/19 02/12/19 06:59 06:59 06:59 Intake Total 1200 1050 Output Total 1275 355 Balance -75 695 Result Diagrams: 02/11/19 04:24 02/11/19 04:24 Additional Labs: Accuchecks 02/11/19 02/10/19 02/10/19 04:24 20:24 15:40 POC Glucose 130 H 237 H 161 H 02/10/19 11:21 POC Glucose 119 H EKG Reviewed by me: Yes (nsr) Phys Exam - Physical Examination Constitutional: NAD HEENT: PERRLA, moist MMs, sclera anicteric, oral pharynx no lesions Neck: no JVD, supple Respiratory: no wheezing, no rales, no rhonchi Cardiovascular: RRR, no significant murmur, no rub Gastrointestinal: soft, non-tender, no distention, positive bowel sounds Musculoskeletal: no edema, pulses present Neurological: non-focal, normal sensation, moves all 4 limbs Lymphatic: no nodes Psychiatric: normal affect, A&O x 3 Skin: no rash, normal turgor Dx/Plan (1) Anterolateral myocardial infarction Code(s): I21.09 - STEMI INVOLVING OTH CORONARY ARTERY OF ANTERIOR WALL Status : Acute Comment: s/p BMS in LAD (2) AICD (automatic cardioverter/defibrillator) present Code(s): Z95.810 - PRESENCE OF AUTOMATIC (IMPLANTABLE) CARDIAC DEFIBRILLATOR Status: Chronic (3) CKD (chronic kidney disease) stage 3, GFR 30-59 ml/min Code(s): N18.3 - CHRONIC KIDNEY DISEASE, STAGE 3 (MODERATE) Status: Chronic (4) Chronic anticoagulation Code(s): Z79.01 - [employer] M[employer]ER (CURRENT) USE OF ANTICOAGULANTS Status: Chronic (5) Chronic systolic heart failure, ACC/AHA stage C Code(s): I50.22 - CHRONIC SYSTOLIC (CONGESTIVE) HEART FAILURE Status: Chronic (6) DM2 (diabetes mellitus, type 2) Status: Chronic (7) H/O: CVA (cerebrovascular accident) Code(s): Z86.73 - PRSNL HX OF TIA (TIA), AND CEREB INFRC W/O RESID DEFICITS Status: Chronic (8) HLD (hyperlipidemia) Code(s): E78.5 - HYPERLIPIDEMIA, UNSPECIFIED Status: Chronic (9) HTN (hypertension) Code(s): I10 - ESSENTIAL (PRIMARY) HYPERTENSION Status: Chronic (10) PAF (paroxysmal atrial fibrillation) Code(s): I48.0 - PAROXYSMAL ATRIAL FIBRILLATION Status: Chronic - Plan cont current plan of care * overall doing well after UT * diabetes controlled * continue current optimum medical therapy after UT as per cardiology * medication reviewed as below * symptomatic treatment. * monitor renal function Review of Systems - Review of Systems ENT: negative: Ear Pain, Ear Discharge, Nose Pain, Nose Discharge, Nose Congestion, Mouth Pain, Mouth Swelling, Throat Pain, Throat Swelling, Other Respiratory: negative: Cough, Dry, Shortness of Breath, Hemoptysis, SOB with Excertion, Pleuritic Pain, Sputum, Wheezing Cardiovascular: negative: chest pain, palpitations, orthopnea, paroxysmal nocturnal dyspnea, edema, light headedness, other Gastrointestinal: negative: Nausea, Vomiting, Abdominal Pain, Diarrhea, Constipation, Melena, Hematochezia, Other Genitourinary: negative: Dysuria, Frequency, Incontinence, Hematuria, Retention , Other Musculoskeletal: negative: Neck Pain, Shoulder Pain, Arm Pain, Back Pain, Hand Pain, Leg Pain, Foot Pain, Other - Medications/Allergies Allergies/Adverse Reactions: Allergies Allergy/AdvReac Type Severity Reaction Status Date / Time No Known Allergies Allergy Verified 02/08/19 22:58 Medications: Current Medications Aspirin (Aspirin Chewable) 81 mg PO DAILY [facility] Last Admin: 02/11/19 08:49 Dose: 81 mg Atorvastatin Calcium (Lipitor) 80 mg PO [facility] Last Admin: 02/10/19 20:30 Dose: 80 mg Carvedilol (Coreg) 6.25 mg PO BID-[facility] Clopidogrel Bisulfate (Plavix) 75 mg PO DAILY [facility] Last Admin: 02/11/19 08:49 Dose: 75 mg Dextrose/Water (Dextrose 50%) 25 gm SLOW IVP PRN PRN PRN Reason: Hypoglycemia Ezetimibe (Zetia) 10 mg PO DAILY [facility] Last Admin: 02/11/19 08:49 Dose: 10 mg Glucagon (Glucagon) 1 mg IM PRN PRN PRN Reason: Hypoglycemia Dextrose/Water (D5w) 1,000 mls @ 0 mls/hr IV .Q0M PRN PRN Reason: Hypoglycemia Insulin Human Lispro (Humalog) 0 units SC .MODERATE SLIDING SC PRN PRN Reason: Moderate Correctional Scale Last Admin: 02/10/19 17:06 Dose: 2 unit Insulin Human Lispro (Humalog) 0 units SC .BEDTIME SLIDING SC PRN PRN Reason: Bedtime Correctional Scale Last Admin: 02/10/19 20:24 Dose: 2 unit Levothyroxine Sodium (Synthroid) 50 mcg PO 0600 [facility] Last Admin: 02/11/19 06:13 Dose: 50 mcg Morphine Sulfate (Morphine) 2 mg SLOW IVP Q4H PRN PRN Reason: Moderate Chest Pain (4-6) Last Admin: 02/08/19 23:31 Dose: 2 mg Nitroglycerin (Nitrostat) 0.4 mg SL Q5MIN PRN PRN Reason: Chest Pain Torsemide (Demadex) 20 mg PO DAILY [facility] Last Admin: 02/11/19 08:50 Dose: 20 mg Warfarin Sodium (Coumadin) 7.5 mg PO 1700 [facility]
--- NOTE | 2019-02-11 16:18 | PRG ---
DATE OF SERVICE: 02/11/2019 SUBJECTIVE: Mr. Red did well overnight. He has no complaints. He is sitting in a chair. He denies chest pain or shortness of breath. I met with family and answered their questions. OBJECTIVE: VITAL SIGNS: Heart rate is 82, blood pressure 123/84, respiratory rate is in the 20s, and oximetry is in the high 90s. LUNGS: Remarkable for fine crackles at both bases. HEART: Regular rhythm. S1 and S2 are normal. ABDOMEN: Soft and nontender. LABORATORY DATA: White count 9, hemoglobin 9.5, and platelets 91,000. Sodium 141, potassium 4.3, chloride 110, bicarbonate 24, BUN 52, and creatinine 2.28. IMPRESSION: 1. Status post myocardial infarction with stenting this admission. 2. Acute on chronic kidney disease, probably needs to stay in a neutral or positive fluid balance for now. 3. History of cerebrovascular accident. We will continue to follow the other physicians following him. The weight is reported as 206, 214, and 211 pounds, these are not viable. Job ID: [id number]
[2019-02-11] MEDS ORDERED: Warfarin Sodium 7.5 MG TAB PO SCH (17:00)
[2019-02-11] MEDS: Atorvastatin Calcium 40 MG TAB PO SCH (20:13)
[2019-02-11] MEDS: HumaLOG 300 UNITS/3 ML VIAL SC PRN (21:07)
[2019-02-12] MEDS: Levothyroxine Sodium 50 MCG TAB PO SCH (05:34)
[2019-02-12 06:17] LABS: #Eosinphils 0.2 thou/uL (0.0-0.7); #Lymphocytes 1.2 thou/uL (1.20-3.40); #Monocytes 0.7 thou/uL (0.11-0.59); #Neutrophils 5.6 thou/uL (1.40-6.50); %Basophils 0.2 % (0.0-1.0); %Eosinophils 2.7 % (0.0-10.0); %Lymphocytes 15.1 % (21.0-51.0); %Monocytes 9.2 % (0.0-10.0); %Neutrophils 72.8 % (42.0-75.0); Hemoglobin 9.9 g/dL (14.0-18.0); Mean Corpuscular HGB CONC 30.8 g/dL (32.0-36.0); Mean Corpuscular Hemoglobin 29.6 pg (27.0-31.0); Mean Corpuscular Volume 96.1 fL (78.0-98.0); Platelet Count 123 thou/uL (130-400); RBC Distribution Width 14.2 % (11.5-14.5); Red Blood Cell (RBC) Count 3.34 mill/uL (4.70-6.10); White Blood Cell (WBC) Count 7.7 thou/uL (4.8-10.8)
[2019-02-12 06:22] LABS: INR-International Normal Ratio 1.9
[2019-02-12] MEDS: HumaLOG 300 UNITS/3 ML VIAL SC PRN ×3 (06:31→17:44)
[2019-02-12 06:34] LABS: Anion Gap 10 mmol/L (10-20); BUN (Urea Nitrogen) 58 mg/dL (8.4-25.7); Calc. Creatinine Clearance 45 mL/min (70-130); Calcium 8.8 mg/dL (7.8-10.44); Carbon Dioxide 25 mmol/L (23-31); Chloride 110 mmol/L (98-107); Estimated GFR-MDRD 40; Glucose 157 mg/dL (83-110); Potassium 4.6 mmol/L (3.5-5.1); Sodium 140 mmol/L (136-145)
[2019-02-12] MEDS: Ezetimibe 10 MG TAB PO SCH (08:28)
[2019-02-12] MEDS: Aspirin Chewable 81 MG TAB PO SCH (08:28)
[2019-02-12] MEDS: Carvedilol 6.25 MG TAB PO SCH ×2 (08:28→17:42)
[2019-02-12] MEDS: Clopidogrel Bisulfate 75 MG TAB PO SCH (08:28)
[2019-02-12] MEDS: Torsemide 20 MG TAB PO SCH (08:53)
--- NOTE | 2019-02-12 11:34 | PDOC.PN ---
- Subjective Encounter Start Date: 02/12/19 Encounter Start Time: 10:10 Patient seen and examined. No new complaints. No overnight events - Objective MAR Reviewed: Yes Vital Signs & Weight: Vital Signs (12 hours) Temp BP 02/12/19 08:28 115/78 02/12/19 04:00 98.2 F Weight Weight 210 lb 5.136 oz Most Recent Monitor Data Heart Rate from ECG 85 NIBP 111/73 NIBP BP-Mean 85 Respiration from ECG 15 SpO2 97 I&O: 02/11/19 02/12/19 02/13/19 06:59 06:59 06:59 Intake Total 1050 1330 Output Total 355 2575 Balance 695 -1245 Result Diagrams: 02/12/19 05:53 02/12/19 05:53 Additional Labs: Accuchecks 02/12/19 02/11/19 02/11/19 06:31 21:07 11:34 POC Glucose 167 H 218 H 144 H EKG Reviewed by me: Yes Phys Exam - Physical Examination Constitutional: NAD HEENT: PERRLA, moist MMs, sclera anicteric Neck: no JVD, supple Respiratory: no wheezing, no rales, no rhonchi Cardiovascular: RRR, no significant murmur, no rub Gastrointestinal: soft, non-tender, no distention, positive bowel sounds Musculoskeletal: no edema, pulses present Neurological: non-focal, normal sensation Lymphatic: no nodes Psychiatric: normal affect Skin: no rash, normal turgor Dx/Plan (1) Anterolateral myocardial infarction Code(s): I21.09 - STEMI INVOLVING OTH CORONARY ARTERY OF ANTERIOR WALL Status : Acute Comment: s/p BMS in LAD (2) AICD (automatic cardioverter/defibrillator) present Code(s): Z95.810 - PRESENCE OF AUTOMATIC (IMPLANTABLE) CARDIAC DEFIBRILLATOR Status: Chronic (3) CKD (chronic kidney disease) stage 3, GFR 30-59 ml/min Code(s): N18.3 - CHRONIC KIDNEY DISEASE, STAGE 3 (MODERATE) Status: Chronic (4) Chronic anticoagulation Code(s): Z79.01 - LONG-TERM (CURRENT) USE OF ANTICOAGULANTS Status: Chronic (5) Chronic systolic heart failure, ACC/AHA stage C Code(s): I50.22 - CHRONIC SYSTOLIC (CONGESTIVE) HEART FAILURE Status: Chronic (6) DM2 (diabetes mellitus, type 2) Status: Chronic (7) H/O: CVA (cerebrovascular accident) Code(s): Z86.73 - PRSNL HX OF TIA (TIA), AND CEREB INFRC W/O RESID DEFICITS Status: Chronic (8) HLD (hyperlipidemia) Code(s): E78.5 - HYPERLIPIDEMIA, UNSPECIFIED Status: Chronic (9) HTN (hypertension) Code(s): I10 - ESSENTIAL (PRIMARY) HYPERTENSION Status: Chronic (10) PAF (paroxysmal atrial fibrillation) Code(s): I48.0 - PAROXYSMAL ATRIAL FIBRILLATION Status: Chronic - Plan cont current plan of care * medication reviewed as below * symptomatic treatment * continue cardiac rehab * medically stable overall doing well. Review of Systems - Review of Systems ENT: negative: Ear Pain, Ear Discharge, Nose Pain, Nose Discharge, Nose Congestion, Mouth Pain, Mouth Swelling, Throat Pain, Throat Swelling, Other Respiratory: negative: Cough, Dry, Shortness of Breath, Hemoptysis, SOB with Excertion, Pleuritic Pain, Sputum, Wheezing Cardiovascular: negative: chest pain, palpitations, orthopnea, paroxysmal nocturnal dyspnea, edema, light headedness, other Gastrointestinal: negative: Nausea, Vomiting, Abdominal Pain, Diarrhea, Constipation, Melena, Hematochezia, Other Genitourinary: negative: Dysuria, Frequency, Incontinence, Hematuria, Retention , Other Musculoskeletal: negative: Neck Pain, Shoulder Pain, Arm Pain, Back Pain, Hand Pain, Leg Pain, Foot Pain, Other Skin: negative: Rash, Lesions, Kenny, Bruising, Other - Medications/Allergies Allergies/Adverse Reactions: Allergies Allergy/AdvReac Type Severity Reaction Status Date / Time No Known Allergies Allergy Verified 02/08/19 22:58 Medications: Current Medications Hydrocodone Bitart/Acetaminophen ([place] 5/325) 1 tab PO Q4H PRN PRN Reason: Moderate Pain (4-6) Artificial Tears (Tears Naturale) 2 drop EA EYE PRN PRN PRN Reason: Dry Eyes Aspirin (Aspirin Chewable) 81 mg PO DAILY [facility] Last Admin: 02/12/19 08:28 Dose: 81 mg Atorvastatin Calcium (Lipitor) 80 mg PO HS [facility] Last Admin: 02/11/19 20:13 Dose: 80 mg Bisacodyl (Dulcolax) 10 mg PO DAILYPRN PRN PRN Reason: Constipation Carvedilol (Coreg) 6.25 mg PO BID-[facility] Last Admin: 02/12/19 08:28 Dose: 6.25 mg Clopidogrel Bisulfate (Plavix) 75 mg PO DAILY [facility] Last Admin: 02/12/19 08:28 Dose: 75 mg Dextrose/Water (Dextrose 50%) 25 gm SLOW IVP PRN PRN PRN Reason: Hypoglycemia Ezetimibe (Zetia) 10 mg PO DAILY [facility] Last Admin: 02/12/19 08:28 Dose: 10 mg Glucagon (Glucagon) 1 mg IM PRN PRN PRN Reason: Hypoglycemia Guaifenesin (Robitussin Sf) 200 mg PO Q4H PRN PRN Reason: Cough Hydralazine HCl (Apresoline) 10 mg SLOW IVP Q4H PRN PRN Reason: SBP > 180 and HR < 70 Dextrose/Water (D5w) 1,000 mls @ 0 mls/hr IV .Q0M PRN PRN Reason: Hypoglycemia Insulin Human Lispro (Humalog) 0 units SC .MODERATE SLIDING SC PRN PRN Reason: Moderate Correctional Scale Last Admin: 02/12/19 06:31 Dose: 2 unit Insulin Human Lispro (Humalog) 0 units SC .BEDTIME SLIDING SC PRN PRN Reason: Bedtime Correctional Scale Last Admin: 02/11/19 21:07 Dose: 2 unit Levothyroxine Sodium (Synthroid) 50 mcg PO 0600 [facility] Last Admin: 02/12/19 05:34 Dose: 50 mcg Loperamide HCl (Imodium) 2 mg PO PRN PRN PRN Reason: Diarrhea/Loose Stools Loratadine (Claritin) 10 mg PO DAILYPRN PRN PRN Reason: Sinus Symptoms Metoclopramide HCl (Reglan) 5 mg IVP Q4H PRN PRN Reason: Nausea Mineral Oil/White Petrolatum (Eucerin Cream) 0 gm TOP BIDPRN PRN PRN Reason: Dry Skin Morphine Sulfate (Morphine) 2 mg SLOW IVP Q4H PRN PRN Reason: Moderate Chest Pain (4-6) Last Admin: 02/08/19 23:31 Dose: 2 mg Nitroglycerin (Nitrostat) 0.4 mg SL Q5MIN PRN PRN Reason: Chest Pain Senna/Docusate Sodium (Senokot S) 2 tab PO BID PRN PRN Reason: Constipation Last Admin: 02/11/19 12:28 Dose: 2 tab Sodium Chloride ([place] Nasal [place] 0.65%) 0 ml EA NARE QIDPRN PRN PRN Reason: Nasal Congestion Throat Lozenges (Cepastat Lozenges) 1 mike PO Q2H PRN PRN Reason: Sore Throat Torsemide (Demadex) 20 mg PO DAILY [facility] Last Admin: 02/12/19 08:53 Dose: 20 mg Warfarin Sodium (Coumadin) 7.5 mg PO 1700 [facility] Zolpidem Tartrate (Ambien) 5 mg PO HSPRN PRN PRN Reason: Insomnia
--- NOTE | 2019-02-12 12:20 | PRG ---
DATE OF SERVICE: 02/12/2019 SUBJECTIVE: Joe Red has no complaints. He is sitting in a bedside chair. He denies shortness of breath. He is afebrile. He is smiling and in a great mood today. OBJECTIVE: VITAL SIGNS: Blood pressure 115/78 and heart rate is 85. He is on room air. LUNGS: Clear. HEART: Regular rhythm. ABDOMEN: Soft and nontender. LABORATORY RESULTS: White count 7.7, hemoglobin 9.9, and platelets 123. Sodium 140, potassium 4.6, chloride 110, bicarb 25, BUN 58, and creatinine 2.01. IMPRESSION: 1. Status post myocardial infarction, requiring coronary artery stenting, clinically stable. 2. History of cerebrovascular accident. 3. History of defibrillator implantation. 4. Chronic kidney disease. 5. Diabetes. 6. Lipid disorder. 7. History of hypertension. 8. History of anticoagulation for atrial fibrillation. PLAN: Continue per Cardiology. Stable to move out of the critical care unit. Job ID: [id number]
--- NOTE | 2019-02-12 14:55 | CON ---
DATE OF CONSULTATION: 02/12/2019 REASON FOR ADMISSION: Chest pain. REASON FOR CONSULTATION: Chronic kidney disease. HISTORY OF PRESENT ILLNESS: This is a 73-year-old male with history of hypertension, hyperlipidemia, CVA, and CAD, came to the hospital with chest pain and was found to have anterolateral ST elevation VA and the patient does follow with me in the clinic for CKD. The patient was found to have elevated creatinine, which was getting better. No nausea or vomiting. No chest pain, shortness of breath. He is sitting up in the chair PAST MEDICAL HISTORY: Positive for hypertension, hyperlipidemia, type 2 diabetes, CVA, coronary artery disease, atrial fibrillation, and CKD. PAST SURGICAL HISTORY: ICD placement, ablation of atrial flutter, inguinal hernia repair. MEDICATIONS: 1. Lipitor. 2. Carvedilol. 3. Vitamin D3. 4. Zetia. 5. Furosemide. 6. Lantus. 7. Levothyroxine. 8. Lisinopril. 9. Warfarin. ALLERGIES: NO KNOWN DRUG ALLERGIES. FAMILY HISTORY: Positive for heart disease. SOCIAL HISTORY: No smoking, alcohol, or illicit drug abuse. REVIEW OF SYSTEMS: CONSTITUTIONAL: Negative for weight loss or gain, ability to conduct usual activities. SKIN: Negative for rash, itching. EYES: Negative for double vision, pain. ENT/MOUTH: Negative for nose bleeding, neck stiffness, pain, tenderness. CARDIOVASCULAR: Negative for palpitations, dyspnea on exertion, orthopnea. RESPIRATORY: Negative for shortness of breath, wheezing, cough, hemoptysis, fever or night sweats. GASTROINTESTINAL: Negative for poor appetite, abdominal pain, heartburn, nausea, vomiting, constipation, or diarrhea. GENITOURINARY: Negative for urgency, frequency, dysuria, nocturia. MUSCULOSKELETAL: Negative for pain, swelling. NEUROLOGIC/PSYCHIATRIC: Negative for anxiety, depression. ALLERGY/IMMUNOLOGIC: Negative for skin rash, bleeding tendency. PHYSICAL EXAMINATION: GENERAL: Reveals a well-built male, in no apparent distress. VITAL SIGNS: Temperature 98.2, pulse 78, respiratory rate 18, and blood pressure 115/78. HEENT: Atraumatic, normocephalic. Oral mucosa is moist. NECK: Supple. CARDIOVASCULAR: S1, S2 heard. Rate and rhythm regular. RESPIRATORY: Clear. GASTROINTESTINAL: Abdomen is soft. MUSCULOSKELETAL: No tenderness. DERMATOLOGIC: No skin rash. NEUROLOGIC: Alert and awake. PSYCHIATRIC: Mood and affect normal. LABORATORY DATA: Hemoglobin is 9.9. Potassium 4.6, BUN is 58, and creatinine is 2.01. ASSESSMENT AND PLAN: 1. Acute kidney injury, on chronic kidney disease, stage 3, with stable creatinine. 2. Edema, controlled. 3. Hypertension. 4. Anemia. Rule out any bleeding. Monitor hemoglobin closely. 5. Cardiorenal syndrome. Follow with Cardiology. Renal function is getting better. Avoid nephrotoxins at this point. Would avoid NATALIO inhibitor. During the hospitalization, currently on torsemide. We will follow. Job ID: [id number]
[2019-02-12] MEDS ORDERED: Warfarin Sodium 7.5 MG TAB PO SCH (17:00)
[2019-02-12] MEDS: Atorvastatin Calcium 40 MG TAB PO SCH (20:54)
[2019-02-13 05:21] VITALS: BMI 25.0
[2019-02-13 05:26] LABS: #Eosinphils 0.2 thou/uL (0.0-0.7); #Lymphocytes 1.1 thou/uL (1.20-3.40); #Monocytes 0.7 thou/uL (0.11-0.59); #Neutrophils 4.5 thou/uL (1.40-6.50); %Basophils 0.7 % (0.0-1.0); %Eosinophils 3.5 % (0.0-10.0); %Lymphocytes 16.1 % (21.0-51.0); %Monocytes 10.9 % (0.0-10.0); %Neutrophils 68.8 % (42.0-75.0); Hemoglobin 9.6 g/dL (14.0-18.0); Mean Corpuscular HGB CONC 30.9 g/dL (32.0-36.0); Mean Corpuscular Hemoglobin 29.7 pg (27.0-31.0); Mean Corpuscular Volume 96.1 fL (78.0-98.0); Mean Platelet Volume 11.1 fL (7.4-10.4); Platelet Count 144 thou/uL (130-400); RBC Distribution Width 14.1 % (11.5-14.5); Red Blood Cell (RBC) Count 3.24 mill/uL (4.70-6.10); White Blood Cell (WBC) Count 6.5 thou/uL (4.8-10.8)
[2019-02-13 05:27] LABS: INR-International Normal Ratio 1.7; Prothrombin Time 19.6 SEC (12.0-14.7)
[2019-02-13 05:37] LABS: Anion Gap 13 mmol/L (10-20); BUN (Urea Nitrogen) 55 mg/dL (8.4-25.7); Calc. Creatinine Clearance 48 mL/min (70-130); Calcium 8.9 mg/dL (7.8-10.44); Carbon Dioxide 24 mmol/L (23-31); Chloride 109 mmol/L (98-107); Estimated GFR-MDRD 43; Glucose 192 mg/dL (83-110); Potassium 4.6 mmol/L (3.5-5.1); Sodium 141 mmol/L (136-145)
[2019-02-13] MEDS: Levothyroxine Sodium 50 MCG TAB PO SCH (06:19)
[2019-02-13] MEDS: Carvedilol 6.25 MG TAB PO SCH (08:53)
[2019-02-13] MEDS: Clopidogrel Bisulfate 75 MG TAB PO SCH (08:53)
[2019-02-13] MEDS: Ezetimibe 10 MG TAB PO SCH (08:53)
[2019-02-13] MEDS: Aspirin Chewable 81 MG TAB PO SCH (08:53)
[2019-02-13] MEDS: Torsemide 20 MG TAB PO SCH (08:53)
[2019-02-13 10:31] VITALS: TEMP 98.8
--- NOTE | 2019-02-13 12:11 | PDOC.PN ---
- Subjective Encounter Start Date: 02/13/19 Encounter Start Time: 09:30 Patient seen and examined. No new complaints. No overnight events - Objective MAR Reviewed: Yes Vital Signs & Weight: Vital Signs (12 hours) Temp BP Pulse Ox 02/13/19 08:53 113/76 02/13/19 08:00 98.8 F 96 02/13/19 04:00 97.6 F Weight Weight 211 lb 10.3 oz Most Recent Monitor Data Heart Rate from ECG 86 NIBP 130/74 NIBP BP-Mean 92 Respiration from ECG 38 SpO2 95 I&O: 02/12/19 02/13/19 02/14/19 06:59 06:59 06:59 Intake Total 1330 1560 360 Output Total 2575 2080 250 Balance -1245 -520 110 Result Diagrams: 02/13/19 04:33 02/13/19 04:33 Additional Labs: Accuchecks 02/12/19 02/12/19 22:22 17:34 POC Glucose 172 H 219 H EKG Reviewed by me: Yes Phys Exam - Physical Examination Constitutional: NAD HEENT: PERRLA, moist MMs, sclera anicteric Neck: no JVD, supple Respiratory: no wheezing, no rales, no rhonchi Cardiovascular: RRR, no significant murmur, no rub Gastrointestinal: soft, non-tender, no distention, positive bowel sounds Musculoskeletal: no edema, pulses present Neurological: non-focal, normal sensation, moves all 4 limbs Lymphatic: no nodes Psychiatric: normal affect, A&O x 3 Skin: no rash, normal turgor Dx/Plan (1) Anterolateral myocardial infarction Code(s): I21.09 - STEMI INVOLVING OTH CORONARY ARTERY OF ANTERIOR WALL Status : Acute Comment: s/p BMS in LAD (2) AICD (automatic cardioverter/defibrillator) present Code(s): Z95.810 - PRESENCE OF AUTOMATIC (IMPLANTABLE) CARDIAC DEFIBRILLATOR Status: Chronic (3) CKD (chronic kidney disease) stage 3, GFR 30-59 ml/min Code(s): N18.3 - CHRONIC KIDNEY DISEASE, STAGE 3 (MODERATE) Status: Chronic (4) Chronic anticoagulation Code(s): Z79.01 - [employer]ER (CURRENT) USE OF ANTICOAGULANTS Status: Chronic (5) Chronic systolic heart failure, ACC/AHA stage C Code(s): I50.22 - CHRONIC SYSTOLIC (CONGESTIVE) HEART FAILURE Status: Chronic (6) DM2 (diabetes mellitus, type 2) Status: Chronic (7) H/O: CVA (cerebrovascular accident) Code(s): Z86.73 - PRSNL HX OF TIA (TIA), AND CEREB INFRC W/O RESID DEFICITS Status: Chronic (8) HLD (hyperlipidemia) Code(s): E78.5 - HYPERLIPIDEMIA, UNSPECIFIED Status: Chronic (9) HTN (hypertension) Code(s): I10 - ESSENTIAL (PRIMARY) HYPERTENSION Status: Chronic (10) PAF (paroxysmal atrial fibrillation) Code(s): I48.0 - PAROXYSMAL ATRIAL FIBRILLATION Status: Chronic - Plan cont current plan of care * medication reviewed as below * symptomatic treatment * see discharge ary. Review of Systems - Review of Systems ENT: negative: Ear Pain, Ear Discharge, Nose Pain, Nose Discharge, Nose Congestion, Mouth Pain, Mouth Swelling, Throat Pain, Throat Swelling, Other Respiratory: negative: Cough, Dry, Shortness of Breath, Hemoptysis, SOB with Excertion, Pleuritic Pain, Sputum, Wheezing Cardiovascular: negative: chest pain, palpitations, orthopnea, paroxysmal nocturnal dyspnea, edema, light headedness, other Gastrointestinal: negative: Nausea, Vomiting, Abdominal Pain, Diarrhea, Constipation, Melena, Hematochezia, Other Genitourinary: negative: Dysuria, Frequency, Incontinence, Hematuria, Retention , Other Musculoskeletal: negative: Neck Pain, Shoulder Pain, Arm Pain, Back Pain, Hand Pain, Leg Pain, Foot Pain, Other Skin: negative: Rash, Lesions, Kenny, Bruising, Other - Medications/Allergies Allergies/Adverse Reactions: Allergies Allergy/AdvReac Type Severity Reaction Status Date / Time No Known Allergies Allergy Verified 02/08/19 22:58 Medications: Current Medications Hydrocodone Bitart/Acetaminophen ([place] 5/325) 1 tab PO Q4H PRN PRN Reason: Moderate Pain (4-6) Artificial Tears (Tears Naturale) 2 drop EA EYE PRN PRN PRN Reason: Dry Eyes Aspirin (Aspirin Chewable) 81 mg PO DAILY [facility] Last Admin: 02/13/19 08:53 Dose: 81 mg Atorvastatin Calcium (Lipitor) 80 mg PO HS [facility] Last Admin: 02/12/19 20:54 Dose: 80 mg Bisacodyl (Dulcolax) 10 mg PO DAILYPRN PRN PRN Reason: Constipation Carvedilol (Coreg) 6.25 mg PO BID-[facility] Last Admin: 02/13/19 08:53 Dose: 6.25 mg Clopidogrel Bisulfate (Plavix) 75 mg PO DAILY [facility] Last Admin: 02/13/19 08:53 Dose: 75 mg Dextrose/Water (Dextrose 50%) 25 gm SLOW IVP PRN PRN PRN Reason: Hypoglycemia Ezetimibe (Zetia) 10 mg PO DAILY [facility] Last Admin: 02/13/19 08:53 Dose: 10 mg Glucagon (Glucagon) 1 mg IM PRN PRN PRN Reason: Hypoglycemia Guaifenesin (Robitussin Sf) 200 mg PO Q4H PRN PRN Reason: Cough Hydralazine HCl (Apresoline) 10 mg SLOW IVP Q4H PRN PRN Reason: SBP > 180 and HR < 70 Dextrose/Water (D5w) 1,000 mls @ 0 mls/hr IV .Q0M PRN PRN Reason: Hypoglycemia Insulin Human Lispro (Humalog) 0 units SC .MODERATE SLIDING SC PRN PRN Reason: Moderate Correctional Scale Last Admin: 02/12/19 17:44 Dose: 4 unit Insulin Human Lispro (Humalog) 0 units SC .BEDTIME SLIDING SC PRN PRN Reason: Bedtime Correctional Scale Last Admin: 02/11/19 21:07 Dose: 2 unit Levothyroxine Sodium (Synthroid) 50 mcg PO 0600 [facility] Last Admin: 02/13/19 06:19 Dose: 50 mcg Loperamide HCl (Imodium) 2 mg PO PRN PRN PRN Reason: Diarrhea/Loose Stools Loratadine (Claritin) 10 mg PO DAILYPRN PRN PRN Reason: Sinus Symptoms Metoclopramide HCl (Reglan) 5 mg IVP Q4H PRN PRN Reason: Nausea Mineral Oil/White Petrolatum (Eucerin Cream) 0 gm TOP BIDPRN PRN PRN Reason: Dry Skin Morphine Sulfate (Morphine) 2 mg SLOW IVP Q4H PRN PRN Reason: Moderate Chest Pain (4-6) Last Admin: 02/08/19 23:31 Dose: 2 mg Nitroglycerin (Nitrostat) 0.4 mg SL Q5MIN PRN PRN Reason: Chest Pain Senna/Docusate Sodium (Senokot S) 2 tab PO BID PRN PRN Reason: Constipation Last Admin: 02/11/19 12:28 Dose: 2 tab Sodium Chloride ([place] Nasal [place] 0.65%) 0 ml EA NARE QIDPRN PRN PRN Reason: Nasal Congestion Throat Lozenges (Cepastat Lozenges) 1 mike PO Q2H PRN PRN Reason: Sore Throat Torsemide (Demadex) 20 mg PO DAILY [facility] Last Admin: 02/13/19 08:53 Dose: 20 mg Warfarin Sodium (Coumadin) 7.5 mg PO 1700 [facility] Last Admin: 02/12/19 17:43 Dose: 7.5 mg Zolpidem Tartrate (Ambien) 5 mg PO HSPRN PRN PRN Reason: Insomnia
--- NOTE | 2019-02-13 12:12 | DIS ---
DATE OF ADMISSION: 02/08/2019 DATE OF DISCHARGE: 02/13/2019 PRIMARY CARE PHYSICIAN: Dr. Robert Watters. DISCHARGE DISPOSITION: Home. PRIMARY DISCHARGE DIAGNOSIS: Anterolateral myocardial infarction, status post bare metal stent in LAD. SECONDARY DISCHARGE DIAGNOSES: 1. Paroxysmal atrial fibrillation. 2. Hypertension. 3. Dyslipidemia. 4. History of cerebrovascular accident. 5. Diabetes type 2. 6. Chronic kidney disease stage 3. 7. Chronic systolic congestive heart failure, stage C. 8. Chronic anticoagulation with warfarin, AICD in place. 9. Hypothyroidism. PRIMARY PROCEDURE/OPERATION: Cardiac catheterization was performed by Dr. Guzmán and found with one vessel coronary artery disease. Bare metal stent was placed. RADIOLOGICAL INVESTIGATION: Chest x-ray was unremarkable. Echocardiography showed EF 20% to 25%, [id number] tricuspid regurgitation. SIGNIFICANT LABORATORY DATA: WBC 6.5, hemoglobin 9.6, platelet 144. INR 1.7. Sodium 141, potassium 4.6, BUN 55, creatinine 1.89, calcium 8.9, troponin >600 AST of 481, ALT 69, albumin 3.0, TSH 1.32. DISCHARGE MEDICATIONS: 1. Aspirin 81 mg p.o. daily. 2. Plavix 75 mg p.o. daily. 3. Warfarin 5 mg p.o. as directed to keep INR 2 to 3. 4. Coreg 6.25 mg b.i.d. 5. Lantus 10 units subcu b.i.d. 6. Torsemide 20 mg daily. 7. Synthroid 50 mcg p.o. daily. 8. Zetia 10 mg at bedtime. 9. Lipitor 80 mg p.o. at bedtime. CONTRAINDICATION: The patient is not on NATALIO inhibitor and ARB because of low blood pressure as well as renal insufficiency and that is why contraindicated, that medication will be addressed after discharge from the hospital upon followup visit. CODE STATUS: Full code. INPATIENT ORDER EXPEDITER: Dr. Guzmán was primary. Sound Team was consulted for medical comanagement. Pulmonary group was following while in hospital. Nephrology was consulted while in hospital. TEST RESULT PENDING ON DISCHARGE: None. ALLERGIES: NO KNOWN DRUG ALLERGIES. DISCHARGE PLAN: Posthospital, the patient has appointment with cardiac rehab, Heart failure Clinic, primary care physician, and Dr. Guzmán, and Nephrology as per chart. HOSPITAL COURSE: A 73-year-old male with above-mentioned medical problem, who was admitted by Dr. Guzmán. The patient presented to emergency room with acute onset of chest pain. He was found with anterolateral MT. He was taken for emergent cardiac cath and found with one vessel CAD. Stent was placed in the mid LAD. Subsequently, the patient remained in ICU. He had marginal blood pressure as well as renal insufficiency. He was not given NATALIO inhibitor and ARB because of renal insufficiency. He is on otherwise optimum medical therapy with aspirin, Plavix , and warfarin for his chronic anticoagulation for atrial fibrillation. His echocardiography showed EF 20% to 25%. Cardiology cleared him for discharge. At this point, the patient is doing very well. He is on room air, ambulatory, tolerating p.o. well. The patient is seen and examined at bedside today. REVIEW OF SYSTEMS: All review of systems reviewed with him and negative. PHYSICAL EXAMINATION: VITAL SIGNS: Currently, temperature 98.8, pulse 86, respiratory rate 16, blood pressure 130/74, weight 211 pounds. GENERAL: The patient is currently alert, oriented, in no acute distress. HEENT: Head; normocephalic and atraumatic. Eyes; pupils round, reactive to light. Extraocular muscle intact. ENT; oropharynx within normal limits. Moist mucous membranes. No oral lesion. No pharyngeal erythema. No exudate. NECK: Supple. No JVD. No thyromegaly. No carotid bruit. LUNGS: Clear to auscultation without any rhonchi or rales. CARDIAC: S1 and S2 , appears regular without any murmur. ABDOMEN: Soft and benign. EXTREMITIES: No edema. NEUROLOGIC: Nonfocal examination. Overall, the patient is medically stable for discharge and we will sign off. Please consider this note as a progress note as well. Job ID: [id number] [facility]
[2019-02-13 12:58] VITALS: BP 130/74
--- NOTE | 2019-02-14 06:34 | PRG ---
DATE OF SERVICE: 02/13/2019 SUBJECTIVE: Patient was seen and examined at bedside and overnight events noted. Patient denies any shortness of breath or chest pain or palpitation. No history of nausea or vomiting or diarrhea or fever or chills or cramps. OBJECTIVE: GENERAL: This is a well-built male, in no apparent distress. VITAL SIGNS: Temperature 98.8. Pulse 86. Respiratory rate 18. Blood pressure 130/74. HEENT: Atraumatic, normocephalic. Oral mucosa is moist NECK: Supple. CARDIOVASCULAR: S1, S2 heard. Rate and rhythm regular. RESPIRATORY: Clear to auscultation. GASTROINTESTINAL: Abdomen is soft. MUSCULOSKELETAL: No tenderness. No edema. DERMATOLOGIC: No skin rash. NEUROLOGIC: Alert and awake and oriented X3. No focal neurologic deficits. Moving all the extremities. PSYCHIATRIC: Mood and affect normal. LABORATORY DATA: Potassium is 4.6, BUN is 55, creatinine is 1.8. ASSESSMENT AND PLAN: 1. Chronic kidney disease, stage 3, stable. 2. Edema. 3. Hypertension. 4. Anemia. 5. Cardiorenal syndrome. . Job ID: [id number]
== END 2019-02-13 12:10 | disposition home or self-care (01) | DRG 249 ==
LOC: ERS 20:18 → CCU 22:05
PROVIDERS: ADMIT Internal Medicine Cardiovascular Disease; ATTEND Internal Medicine Cardiovascular Disease
PROC: 02703DZ Dilation of Coronary Artery, One Artery with Intraluminal Device, Percutaneous Approach (ICD-10-PCS; principal; 2019-02-08)
PROC: B2111ZZ Fluoroscopy of Multiple Coronary Arteries using Low Osmolar Contrast (ICD-10-PCS; 2019-02-08)
DX: I21.09 ST elevation (STEMI) myocardial infarction involving other coronary artery of anterior wall (principal); I42.8 Other cardiomyopathies; I13.0 Hypertensive heart and chronic kidney disease with heart failure and stage 1 through stage 4 chronic kidney disease, or unspecified chronic kidney disease; I50.22 Chronic systolic (congestive) heart failure; N17.9 Acute kidney failure, unspecified; I25.10 Atherosclerotic heart disease of native coronary artery without angina pectoris; Z95.810 Presence of automatic (implantable) cardiac defibrillator; E11.22 Type 2 diabetes mellitus with diabetic chronic kidney disease; N18.3 Chronic kidney disease, stage 3 (moderate); I48.0 Paroxysmal atrial fibrillation; D63.1 Anemia in chronic kidney disease; E78.00 Pure hypercholesterolemia, unspecified; I69.320 Aphasia following cerebral infarction; Z82.49 Family history of ischemic heart disease and other diseases of the circulatory system; Z79.01 Long term (current) use of anticoagulants; Z79.4 Long term (current) use of insulin
CPT/HCPCS: 36415; 36416; 71045; 80048; 80051; 80053; 80061; 82040; 82550; 82553; 82565; 82570; 83605; 83690; 83735; 83970; 84156; 84443; 84484; 84520; 85025; 85347; 85610; 85730; 92933; 93005; 93010; 93306; 93458; 93798; 96374; 96375; 96376; C1725; C1769; C1876; C1887; J0583; J1644; J2270; J7050

== ENCOUNTER 2019-03-01 04:49 | Observation (INO) | payer MEDICARE ==
[2019-03-01 05:23] LABS: #Eosinphils 0.2 thou/uL (0.0-0.7); #Lymphocytes 1.4 thou/uL (1.20-3.40); #Monocytes 0.6 thou/uL (0.11-0.59); #Neutrophils 3.6 thou/uL (1.40-6.50); %Basophils 0.5 % (0.0-1.0); %Eosinophils 3.6 % (0.0-10.0); %Lymphocytes 23.6 % (21.0-51.0); %Monocytes 9.9 % (0.0-10.0); %Neutrophils 62.4 % (42.0-75.0); Hemoglobin 8.5 g/dL (14.0-18.0); Mean Corpuscular Hemoglobin 29.9 pg (27.0-31.0); Mean Corpuscular Volume 96.4 fL (78.0-98.0); Mean Platelet Volume 9.6 fL (7.4-10.4); Platelet Count 195 thou/uL (130-400); RBC Distribution Width 14.6 % (11.5-14.5); Red Blood Cell (RBC) Count 2.86 mill/uL (4.70-6.10); White Blood Cell (WBC) Count 5.8 thou/uL (4.8-10.8)
[2019-03-01 05:30] LABS: PTT 67.1 SEC (22.9-36.1)
[2019-03-01 05:44] LABS: INR-International Normal Ratio 6.5
[2019-03-01 06:23] LABS: CKMB 1.5 ng/mL (0-6.6)
[2019-03-01 06:54] LABS: ALT (SGPT) 26 U/L (8-55); AST (SGOT) 20 U/L (5-34); Alkaline Phosphatase 144 U/L (40-150); Anion Gap 11 mmol/L (10-20); BUN (Urea Nitrogen) 43 mg/dL (8.4-25.7); Bilirubin, Total 0.4 mg/dL (0.2-1.2); Calc. Creatinine Clearance 0 mL/min (70-130); Calcium 8.5 mg/dL (7.8-10.44); Carbon Dioxide 29 mmol/L (23-31); Chloride 105 mmol/L (98-107); Estimated GFR-MDRD 37; Globulin 3.7 g/dL (2.4-3.5); Glucose 287 mg/dL (83-110); Potassium 4.1 mmol/L (3.5-5.1); Protein, Total 6.7 g/dL (5.8-8.1); Sodium 141 mmol/L (136-145)
[2019-03-01] MEDS ORDERED: Oxymetazoline HCl 0.05% ( 15 ML ) NASAL PRN (09:02)
[2019-03-01] MEDS ORDERED: Dextrose 50% Abboject 50 ML SYRINGE SLOW IVP PRN (09:24)
[2019-03-01] MEDS ORDERED: Calcium Carbonate 500 MG ChewTAB PO PRN (09:24)
[2019-03-01] MEDS ORDERED: Acetaminophen 325 MG TAB PO PRN (09:24)
[2019-03-01] MEDS ORDERED: Nitroglycerin 0.4 MG TAB (25 Tab Bottle) PO PRN (09:24)
[2019-03-01] MEDS ORDERED: Insulin Regular 300 UNITS/3 ML VIAL SC PRN ×2 (09:24)
[2019-03-01] MEDS ORDERED: Dextrose 5% in Water 1,000 ML IV PRN (09:24)
[2019-03-01] MEDS ORDERED: Ondansetron PF 4 MG/2 ML Vial IVP PRN (09:29)
[2019-03-01] MEDS ORDERED: Ondansetron ODT 4 MG TAB PO PRN (09:29)
[2019-03-01] MEDS ORDERED: Insulin Glargine 10 UNITS in Pre-Filled Syringe 1 EACH SC SCH ×2 (09:30→21:00)
[2019-03-01] MEDS ORDERED: Clopidogrel Bisulfate 75 MG TAB PO SCH (09:30)
[2019-03-01] MEDS ORDERED: Aspirin 81 mg Enteric Coated Tablet PO SCH (09:30)
[2019-03-01 09:40] VITALS: BMI 28.4
[2019-03-01] MEDS ORDERED: Carvedilol 6.25 MG TAB PO SCH (09:45)
[2019-03-01 09:49] LABS: CKMB 1.4 ng/mL (0-6.6)
[2019-03-01] MEDS: Sodium Chloride 0.65% Nasal 44 ML BOT EA NARE SCH ×4 (11:22→20:55)
[2019-03-01 14:42] LABS: Hemoglobin 8.2 g/dL (14.0-18.0); Platelet Count 185 thou/uL (130-400)
[2019-03-01 14:48] LABS: Prothrombin Time 59.7 SEC (12.0-14.7)
[2019-03-01 14:50] LABS: INR-International Normal Ratio 6.9
[2019-03-01] MEDS ORDERED: Phytonadione 10 MG/ML AMP PO SCH ×2 (15:00→19:15)
[2019-03-01 15:50] LABS: Critical Call Chem Troponin I RESULT DECREASING
[2019-03-01 16:09] LABS: CKMB 1.5 ng/mL (0-6.6)
[2019-03-01] MEDS: Carvedilol 6.25 MG TAB PO SCH (17:11)
--- NOTE | 2019-03-01 17:18 | HP ---
PRIMARY CARE PHYSICIAN: Dr. Robert Watters. PRIMARY ANALOG DEVICE DESIGNER: Dr. Guzmán. CHIEF COMPLAINT: Epistaxis. HISTORY OF PRESENT ILLNESS: The patient is a 74-year-old male with recent FL, currently on aspirin and Plavix; chronic atrial fibrillation, on Coumadin; congestive heart failure with an ejection fraction of 20% to 25%, presented to the emergency room with above complaints. The patient was discharged from this facility on January,. Post discharge, he felt okay. He is currently followed by Heart failure Clinic as well as Coumadin Clinic. His INR 2 weeks ago was 2.7. Around 3:00 a.m., he had sudden onset of epistaxis that lasted for approximately 10 minutes or so. He had significant amount of blood on the pillow. He also was coughing up bright red blood this morning. He felt dizzy, lightheaded without any loss of consciousness. No chest pain, palpitations, or syncope reported. The patient is compliant with all of his medications. He denies current use of nonsteroidal anti-inflammatory drugs. In the emergency room, his initial vital signs showed temperature 98.7, pulse rate of 86, blood pressure of 111/72 with O2 saturation of 99% on room air. His INR was 6.5, with a hemoglobin of 8.5. His troponin was 0.7. PAST MEDICAL HISTORY: 1. Chronic systolic heart failure, ejection fraction 20% to 25%. 2. Chronic atrial fibrillation, on anticoagulation. 3. Status post automatic implantable cardioverter-defibrillator. 4. Hypothyroidism. 5. Recent anterolateral myocardial infarction, status post bare metal stent placement to the LAD. 6. Dyslipidemia. 7. History of cerebrovascular accident. 8. Diabetes mellitus type 2. 9. Chronic kidney disease, stage 3. PAST SURGICAL HISTORY: 1. Recent cardiac catheterization. 2. AICD placement. 3. Ablation for atrial flutter and fibrillation. 4. Inguinal hernia repair. CURRENT HOME MEDICATIONS: 1. Coumadin 5 mg as directed. 2. Aspirin 81 mg daily. 3. Plavix 75 mg daily. 4. Torsemide 20 mg daily. 5. Levothyroxine 50 mcg daily. 6. Lantus insulin 10 units b.i.d. 7. Zetia 10 mg at bedtime. 8. Carvedilol 12.5 mg b.i.d. 9. Lipitor 80 mg at bedtime. SOCIAL HISTORY: The patient currently lives at home with his spouse. He makes his own decision with the help of his spouse. No current use of smoking, alcohol, or drug use reported. FAMILY HISTORY: Positive for coronary artery disease. REVIEW OF SYSTEMS: All other review of systems was reviewed and were found negative. PHYSICAL EXAMINATION: VITAL SIGNS: As discussed above. GENERAL: A 74-year-old male, in no apparent distress. No new episodes of epistaxis. HEENT: Head, atraumatic and normocephalic. Sclerae anicteric. Moist mucous membranes. No oral lesion. NECK: Supple. No JVD appreciated. No carotid bruit. LUNGS: Clear to auscultation bilaterally. No wheezing, rales, or rhonchi. HEART: S1, S2 present. Regular rate and rhythm. No rubs or gallops appreciated. ABDOMEN: Soft, nontender. Bowel sounds present. EXTREMITIES: 1+ edema in bilateral lower extremity. No calf tenderness. PERIPHERAL VASCULAR: Radial pulses palpable bilaterally. MUSCULOSKELETAL: No joint swelling or tenderness. SKIN: Warm and dry. LYMPH NODES: No palpable lymph nodes in the neck. LABORATORY FINDINGS: As discussed above. Creatinine 2.1 with BUN 43. Troponin 0.7 with normal CK-MB. Albumin 3.0. Hemoglobin 8.5. INR 6.5. Recent echocardiogram showed ejection fraction of 20% to 25% with moderate to severe tricuspid regurgitation. EKG by my review showed paced rhythm with nonspecific ST-T wave changes. Chest x-ray by my review from last admission was negative. IMPRESSION: 1. Epistaxis, probably secondary to supratherapeutic INR. 2. Chronic atrial fibrillation, on anticoagulation. 3. Mild acute kidney injury on chronic kidney disease stage 3. 4. Elevated troponins. 5. History of cerebrovascular accident. 6. Diabetes mellitus type 2. 7. Hypothyroidism. 8. Chronic systolic heart failure, ejection fraction of 20% to 25%, ACC stage C, status post automatic implantable cardioverter-defibrillator. 9. Hypertension. 10. Dyslipidemia. 11. Acute blood loss anemia. PLAN: The patient will be monitored on the telemetry unit. Cardiology will be consulted. We will repeat PT/INR along with hemoglobin later today. If INR gets worse, we will consider giving low-dose vitamin K. We will resume all of his home medication except for Coumadin. Fall precautions. Plan of care was discussed with the patient in detail. He stated understanding. Job ID: [id number]
[2019-03-01] MEDS ORDERED: Non-Formulary Item 1 EACH (Atorvastatin Calcium [Lipitor] 80 MG) PO SCH (21:00)
[2019-03-01] MEDS ORDERED: Ezetimibe 10 MG TAB PO SCH (21:00)
[2019-03-01] MEDS ORDERED: Atorvastatin Calcium 40 MG TAB PO SCH (21:00)
--- NOTE | 2019-03-02 01:45 | CON ---
DATE OF CONSULTATION: This is a 74-year-old black male that I have followed intermittently since 2002. Please see admission note from 3 weeks ago. He has a longstanding history of nonischemic cardiomyopathy who presented on February 08, 2019, with cough and substernal chest pressure. He had new Q-waves V4 to V5 and 2-[address]-segment elevation, which were new. He was taken to the lab aide emergently and found to have a total occlusion of the mid LAD. Rebel 3.0 x 32 mm stent was placed and a total occlusion was reduced to 0% and another 50% percent area in the proximal LAD was reduced to 50%. He also had mild 20% lesions in the right coronary artery. He was on Coumadin chronically for his chronic atrial fibrillation, was discharged on Coumadin, aspirin 81, and Plavix. He now presents complaining of epistaxis. He is bleeding from the left side of his nose. He stated that during his early adulthood, he also at times would have epistaxis from the left side. He denies any chest discomfort or shortness of breath. PAST MEDICAL HISTORY: Recent anterior myocardial infarction, hypertension, hyperlipidemia, diabetes, history of CVA with aphasia in September 2012, chronic atrial fibrillation, renal insufficiency. PAST SURGICAL HISTORY: ICD placement, stent placement in the proximal mid LAD, atrial flutter ablation and atrial fibrillation ablation, inguinal herniorrhaphy. MEDICATIONS: At the time of discharge include: 1. Aspirin 81 daily. 2. Plavix 75 daily x1 month. 3. Warfarin 5 mg daily. 4. Carvedilol 6.25 b.i.d. 5. Lantus 10 units subcu b.i.d. 6. Torsemide 20 daily. 7. Synthroid 50 mcg daily. 8. Zetia 10 mg daily. 9. Atorvastatin 80 mg at bedtime. ALLERGIES: NONE. FAMILY HISTORY: Positive for coronary artery disease. REVIEW OF SYSTEMS: A 10-point review of systems unremarkable. PHYSICAL EXAMINATION: VITAL SIGNS: Blood pressure 102/62, pulse of 84. HEENT: PERRL. NECK: Supple. CHEST: Clear. CARDIAC: S1 and S2 normal without any S3, S4, or murmurs. ABDOMEN: Normal bowel sounds without tenderness, organomegaly or masses. EXTREMITIES: Revealed 1+ pretibial edema. NEUROLOGIC: Grossly intact. SKIN: Warm and dry. LABORATORY DATA: EKG revealed atrial pacing, hemoglobin 8.2, hematocrit 26.8, INR 6.9. Troponin I 0.746. Sodium 141, potassium 4.1, chloride 105, carbon dioxide 29, BUN 43, and creatinine 2.12. IMPRESSION: 1. Epistaxis secondary to over anticoagulation with warfarin, aspirin and Plavix. 2. Status post anterolateral ST elevation myocardial infarction with bare metal stent placement in the proximal to mid left anterior descending artery. 3. Nonischemic cardiomyopathy. 4. Status post dual-chamber implantable cardioverter defibrillator placement. 5. Hypertension. 6. Diabetes. 7. Hypercholesterolemia. 8. Positive family history. 9. History of cerebrovascular accident with aphasia in 2011. 10. Noncompliance with followups. 11. Paroxysmal atrial fibrillation, status post atrial flutter ablation and atrial fibrillation ablation. PLAN: Coumadin will be discontinued at this time and with his significantly elevated INR, I will give him 10 mg of vitamin K p.o. The Plavix may be discontinued on February 08 and it may be best just to hold Coumadin until that time. Job ID: [id number] [facility]
[2019-03-02 05:04] LABS: Platelet Count 179 thou/uL (130-400)
[2019-03-02 05:09] LABS: INR-International Normal Ratio 3.7; Prothrombin Time 36.3 SEC (12.0-14.7)
[2019-03-02 05:22] LABS: Anion Gap 7 mmol/L (10-20); BUN (Urea Nitrogen) 40 mg/dL (8.4-25.7); Calc. Creatinine Clearance 50 mL/min (70-130); Calcium 8.5 mg/dL (7.8-10.44); Carbon Dioxide 31 mmol/L (23-31); Chloride 109 mmol/L (98-107); Estimated GFR-MDRD 47; Glucose 69 mg/dL (83-110); Magnesium 2.2 mg/dL (1.6-2.6); Potassium 4.2 mmol/L (3.5-5.1); Sodium 143 mmol/L (136-145)
[2019-03-02] MEDS ORDERED: Levothyroxine Sodium 50 MCG TAB PO SCH (06:00)
[2019-03-02] MEDS ORDERED: Torsemide 20 MG TAB PO SCH ×2 (09:00)
[2019-03-02] MEDS ORDERED: Insulin Glargine 10 UNITS in Pre-Filled Syringe 1 EACH SC SCH (09:00)
[2019-03-02] MEDS ORDERED: Clopidogrel Bisulfate 75 MG TAB PO SCH (09:00)
[2019-03-02] MEDS ORDERED: Aspirin 81 mg Enteric Coated Tablet PO SCH (09:00)
[2019-03-02] MEDS: Sodium Chloride 0.65% Nasal 44 ML BOT EA NARE SCH (09:07)
[2019-03-02] MEDS: Carvedilol 6.25 MG TAB PO SCH (09:08)
--- NOTE | 2019-03-02 10:28 | DIS ---
DATE OF ADMISSION: 03/01/2019 DATE OF DISCHARGE: 03/02/2019 DISCHARGE DISPOSITION: Home. FOLLOWUP: 1. Follow up with primary care physician, Dr. Robert Watters, in 1 week. 2. Follow up with Dr. Guzmán as scheduled. ALLERGIES: NO KNOWN DRUG ALLERGIES. THE PATIENT WAS SEEN AND EXAMINED ON THE DAY OF DISCHARGE. DENIES ANY NEW COMPLAINTS. THE PATIENT WAS ADVISED TO HOLD WARFARIN FOR NOW WHILE ON ASPIRIN AND PLAVIX. THE PATIENT WILL RESTART WARFARIN ONCE HE COMPLETES 30 DAYS OF PLAVIX. HE WILL CONTINUE ASPIRIN INDEFINITELY. BRIEF HOSPITAL COURSE: The patient is a 74-year-old male with recent KS and atrial fibrillation, currently on aspirin, Plavix, and Coumadin, presented to the emergency room with epistaxis. His INR was 6.5. Please refer to the history and physical for further details. The patient was admitted to the hospital with a diagnosis of epistaxis probably secondary to supratherapeutic INR. He received vitamin K per Cardiology recommendation. His INR today is 3.7. Per Cardiology recommendation, he will stop warfarin for now while he is on aspirin and Plavix. He will complete Plavix later this month. Next day after completing Plavix, he needs to start warfarin along with aspirin. His hemoglobin on the day of discharge is 8.0. He appears stable for discharge. There is no new episodes of epistaxis reported in the last 24 hours. FINAL DIAGNOSES: 1. Epistaxis secondary to coagulopathy. 2. Chronic atrial fibrillation. Anticoagulation will be held while on Plavix per Cardiology recommendation. 3. Mild acute kidney injury on chronic kidney disease stage 3. 4. Elevated troponins probably secondary to recent myocardial infarction. 5. History of cerebrovascular accident. 6. Diabetes mellitus type 2. 7. Hypothyroidism. 8. Chronic systolic heart failure, status post automatic implantable cardioverter-defibrillator. 9. Hypertension. 10. Acute blood loss anemia. 11. Dyslipidemia. PLAN: Plan of care was discussed with the patient in detail. He stated understanding. Job ID: [id number]
[2019-03-02 13:00] VITALS: BP 113/70; TEMP 97.7
== END 2019-03-02 12:30 | disposition home or self-care (01) ==
LOC: ERS 04:49 → 2NO 09:04 → INTOOBSV 09:04
PROVIDERS: ADMIT Internal Medicine; ATTEND Internal Medicine
DX: R04.0 Epistaxis (principal); I48.2 Chronic atrial fibrillation; I25.2 Old myocardial infarction; E03.9 Hypothyroidism, unspecified; E78.5 Hyperlipidemia, unspecified; E11.22 Type 2 diabetes mellitus with diabetic chronic kidney disease; N18.3 Chronic kidney disease, stage 3 (moderate); N17.9 Acute kidney failure, unspecified; I50.22 Chronic systolic (congestive) heart failure; I48.0 Paroxysmal atrial fibrillation; D62 Acute posthemorrhagic anemia; I42.8 Other cardiomyopathies; I69.920 Aphasia following unspecified cerebrovascular disease; E78.00 Pure hypercholesterolemia, unspecified; Z95.810 Presence of automatic (implantable) cardiac defibrillator; Z95.5 Presence of coronary angioplasty implant and graft; Z91.19 Patient's noncompliance with other medical treatment and regimen; Z79.02 Long term (current) use of antithrombotics/antiplatelets; Z79.82 Long term (current) use of aspirin; Z79.4 Long term (current) use of insulin; Z79.01 Long term (current) use of anticoagulants; Z79.899 Other long term (current) drug therapy; Z98.890 Other specified postprocedural states
CPT/HCPCS: 80048; 80053; 82550; 82553; 82565; 82962 ×2; 83735; 84484 ×2; 85014 ×2; 85018 ×2; 85025; 85049 ×2; 85610 ×3; 85730; 86850; 86900; 86901; 93005; 94760; 99285; G0378; 36415; 36416; J1815; J1825; J3430

== ENCOUNTER 2019-03-07 16:43 | Emergency (ER) | payer MEDICARE ==
[2019-03-07 17:23] LABS: #Basophils 0.1 thou/uL (0.0-0.2); #Eosinphils 0.3 thou/uL (0.0-0.7); #Lymphocytes 1.5 thou/uL (1.20-3.40); #Monocytes 0.5 thou/uL (0.11-0.59); #Neutrophils 4.3 thou/uL (1.40-6.50); %Eosinophils 4.2 % (0.0-10.0); %Monocytes 7.5 % (0.0-10.0); %Neutrophils 65.3 % (42.0-75.0); Hemoglobin 8.8 g/dL (14.0-18.0); Mean Corpuscular Hemoglobin 29.7 pg (27.0-31.0); Mean Corpuscular Volume 98.8 fL (78.0-98.0); Mean Platelet Volume 10.1 fL (7.4-10.4); Platelet Count 176 thou/uL (130-400); RBC Distribution Width 16.4 % (11.5-14.5); Red Blood Cell (RBC) Count 2.97 mill/uL (4.70-6.10); White Blood Cell (WBC) Count 6.6 thou/uL (4.8-10.8)
[2019-03-07 17:38] LABS: Anisocytosis SLIGHT = 6-15 cells (100X) (0-5/hpf); Hypochromia SLIGHT = 6-15 cells (100X) (0-5/hpf); MDiff Complete? YES; Ovalocytes SLIGHT = 2-5 cells (100X) (0-1/hpf); Platelet Morphology Comment Appears Adequate; Polychromasia SLIGHT = 2-3 cells (100X) (0-2/hpf); Schistocytes SLIGHT = 2-5 cells (100X) (0-1/hpf); Spherocytes SLIGHT = 1-5 cells (100X) (None Seen); Target Cells SLIGHT = 2-5 cells (100X) (0-1/hpf)
[2019-03-07 17:49] LABS: ALT (SGPT) 22 U/L (8-55); AST (SGOT) 23 U/L (5-34); Albumin 3.4 g/dL (3.4-4.8); Alkaline Phosphatase 122 U/L (40-150); Anion Gap 13 mmol/L (10-20); BUN (Urea Nitrogen) 31 mg/dL (8.4-25.7); Bilirubin, Total 0.6 mg/dL (0.2-1.2); Calc. Creatinine Clearance 0 mL/min (70-130); Calcium 9.3 mg/dL (7.8-10.44); Carbon Dioxide 31 mmol/L (23-31); Chloride 103 mmol/L (98-107); Estimated GFR-MDRD 36; Globulin 4.3 g/dL (2.4-3.5); Glucose 122 mg/dL (83-110); Potassium 4.9 mmol/L (3.5-5.1); Protein, Total 7.7 g/dL (5.8-8.1); Sodium 142 mmol/L (136-145)
[2019-03-07] MEDS ORDERED: Furosemide 20 MG/2 ML VIAL ONE (18:05)
[2019-03-07] MEDS ORDERED: Furosemide 40 MG/4 ML VIAL ONE (18:05)
[2019-03-07 19:40] LABS: Critical Call Chem Troponin I RESULT DECREASING
[2019-03-07 19:58] LABS: CKMB 1.7 ng/mL (0-6.6)
--- NOTE | 2019-03-10 15:38 | EKG ---
Test Reason : Blood Pressure : / mmHG Vent. Rate : 085 BPM Atrial Rate : 085 BPM P-R Int : 000 ms QRS Dur : 096 ms QT Int : 418 ms P-R-T Axes : 000 125 197 degrees QTc Int : 497 ms Atrial-paced rhythm with prolonged AV conduction with Premature atrial complexes with Abberant conduc tion Low voltage QRS Confirmed by MONICA SOLOMON [id number]), editor producer KAITLIN STONE ([id number]) on 03/10/2019 3:38:08 PM Referred By: Confirmed By:MONICA SOLOMON
== END 2019-03-07 20:35 | disposition home or self-care (01) ==
LOC: ERS 16:43
DX: I11.0 Hypertensive heart disease with heart failure (principal); I50.9 Heart failure, unspecified; D50.0 Iron deficiency anemia secondary to blood loss (chronic); E78.00 Pure hypercholesterolemia, unspecified; Z86.73 Personal history of transient ischemic attack (TIA), and cerebral infarction without residual deficits; E11.9 Type 2 diabetes mellitus without complications; I25.2 Old myocardial infarction; Z79.899 Other long term (current) drug therapy; Z79.4 Long term (current) use of insulin; Z79.82 Long term (current) use of aspirin
CPT/HCPCS: 80053; 82553; 83880; 84484; 85025; 86850; 86900; 86901; 93005; 96374; J1940

== ENCOUNTER 2019-11-07 14:59 | Inpatient (IN) | payer MEDICARE ==
--- NOTE | 2019-11-07 15:56 | RAD ---
RADIOGRAPH CHEST 1 VIEW: Date: 11/07/19 Time: 4:48 P.M. HISTORY: 74-year-old male with fluid volume overload. COMPARISON: 01/29/19 FINDINGS: Increased transverse diameter of the cardiac shadow could be magnification or mild actual cardiomegal y. Minimal pulmonary venous engorgement. No consolidation or ricardo pulmonary alveolar edema. Lateral costophrenic angles are sharp. No pneumothorax. Left subclavian dual lead AICD. No major interval marcella nge. IMPRESSION: 1. Borderline cardiomegaly and minimal/mild pulmonary venous congestion. 2. Automatic implantable cardioverter/defibrillator. NATALIYA [] POS: pOal
[2019-11-07 16:25] LABS: #Basophils 0.1 thou/uL (0.0-0.2); #Eosinphils 0.1 thou/uL (0.0-0.7); #Lymphocytes 1.1 thou/uL (1.20-3.40); #Monocytes 0.6 thou/uL (0.11-0.59); #Neutrophils 4.3 thou/uL (1.40-6.50); %Basophils 1.8 % (0.0-1.0); %Lymphocytes 16.9 % (21.0-51.0); %Neutrophils 69.3 % (42.0-75.0); Hemoglobin 11.5 g/dL (14.0-18.0); Mean Corpuscular HGB CONC 31.5 g/dL (32.0-36.0); Mean Corpuscular Hemoglobin 30.7 pg (27.0-31.0); Mean Corpuscular Volume 97.5 fL (78.0-98.0); Mean Platelet Volume 11.3 fL (7.4-10.4); Platelet Count 129 thou/uL (130-400); RBC Distribution Width 15.4 % (11.5-14.5); Red Blood Cell (RBC) Count 3.75 mill/uL (4.70-6.10); White Blood Cell (WBC) Count 6.2 thou/uL (4.8-10.8)
[2019-11-07] MEDS ORDERED: Heparin 1,000 UNITS/ML VIAL ONE (16:37)
[2019-11-07 17:05] LABS: ALT (SGPT) 17 U/L (8-55); AST (SGOT) 35 U/L (5-34); Albumin 3.3 g/dL (3.4-4.8); Alkaline Phosphatase 158 U/L (40-110); Anion Gap 15 mmol/L (10-20); BUN (Urea Nitrogen) 46 mg/dL (8.4-25.7); Bilirubin, Total 1.1 mg/dL (0.2-1.2); CK (CPK) 153 U/L (30-200); Calc. Creatinine Clearance 0 mL/min (70-130); Calcium 8.6 mg/dL (7.8-10.44); Carbon Dioxide 26 mmol/L (23-31); Chloride 103 mmol/L (98-107); Estimated GFR-MDRD 33; Globulin 4.5 g/dL (2.4-3.5); Glucose 187 mg/dL (83-110); Potassium 5.3 mmol/L (3.5-5.1); Protein, Total 7.8 g/dL (5.8-8.1); Sodium 139 mmol/L (136-145)
[2019-11-07 17:23] LABS: CKMB 2.2 ng/mL (0-6.6)
[2019-11-07] MEDS ORDERED: Furosemide 40 MG/4 ML VIAL ONE (17:25)
[2019-11-07] MEDS ORDERED: Aspirin Chewable 81 MG TAB ONE (17:25)
[2019-11-07 19:44] LABS: Troponin I 0.073 ng/mL (< 0.028)
[2019-11-07] MEDS ORDERED: Rosuvastatin 20 MG TAB PO SCH (19:45)
[2019-11-07] MEDS ORDERED: Carvedilol 6.25 MG TAB PO SCH (19:45)
[2019-11-07 20:08] LABS: INR-International Normal Ratio 3.4; PTT 46.2 SEC (22.9-36.1); Prothrombin Time 33.8 SEC (12.0-14.7)
[2019-11-07] MEDS ORDERED: Warfarin Sodium 7.5 MG TAB PO SCH (20:15)
--- NOTE | 2019-11-07 20:40 | PDOC.EVN ---
Event Note - Event Note Event Note: [id number]
[2019-11-07] MEDS: Famotidine 20 MG TAB PO SCH (21:48)
[2019-11-07] MEDS ORDERED: Dextrose 5% in Water 1,000 ML IV PRN (22:54)
[2019-11-07] MEDS ORDERED: Dextrose 50% Abboject 50 ML SYRINGE SLOW IVP PRN (22:54)
[2019-11-07 23:17] LABS: Troponin I 0.067 ng/mL (< 0.028)
[2019-11-07] MEDS: HumaLOG 300 UNITS/3 ML VIAL SC PRN (23:31)
[2019-11-07] MEDS ORDERED: Bacteriostatic Water 30 ML VIAL FS PRN (23:55)
[2019-11-07] MEDS ORDERED: methylPREDNISolone Sod Succ 40 MG VIAL IVP SCH (23:59)
--- NOTE | 2019-11-08 02:21 | HP ---
CHIEF COMPLAINT: Edema and fluid overload. HISTORY OF PRESENT ILLNESS: Mr. Red is a 74-year-old male with past medical history of congestive heart failure, systolic; atrial fibrillation; coronary artery disease; diabetes; chronic kidney disease; hyperlipidemia; hypertension; among others, presents to the emergency room with bilateral leg swelling and shortness of breath. Initial workup in the emergency room, the patient has a troponin of 0.07. Potassium is elevated at 5.3, creatinine is 2.37, glucose 187, and BNP is elevated at 15,109, hemoglobin 11.5. Echo Tech is being consulted who advised to start the patient on Milrinone drip tonight and carvedilol and assess in a.m. for starting high dose of Lasix 100 mg twice a day. The patient is being admitted to the CCU for further management. PAST MEDICAL HISTORY: 1. Congestive heart failure, systolic. 2. Atrial fibrillation. 3. Type 2 diabetes. 4. Hypertension. 5. Hyperlipidemia. PAST SURGICAL HISTORY: 1. Stent placement. 2. Hernia repair. 3. VFib defibrillator. SOCIAL HISTORY: The patient is a former cigarette smoker. Denies alcohol drinking. FAMILY HISTORY: Reviewed and noncontributory. HOME MEDICATIONS: Please see home medication reconciliation form for updated medications. ALLERGIES: NO KNOWN ALLERGIES. REVIEW OF SYSTEMS: Review of 14 systems negative except what is mentioned in history of present illness. PHYSICAL EXAMINATION: GENERAL: The patient is awake, alert, in mild respiratory distress. VITAL SIGNS: Blood pressure 103/77, pulse is 89, respiratory rate is 26, temperature is 98, oxygen saturation is 100%. HEENT: Head and neck, normocephalic, atraumatic. NECK: Supple. No JVD. CHEST: Decreased air entry in both bases. HEART: Irregular. ABDOMEN: Soft, nontender. Bowel sounds present. NEUROLOGIC: Awake, alert, and oriented. PSYCHIATRIC: Unable to assess. EXTREMITIES: Positive for edema. LABORATORY DATA: As mentioned above in history of present illness. ASSESSMENT: 1. Fluid overload. 2. Acute on chronic congestive heart failure, systolic. 3. History of atrial fibrillation. 4. Diabetes type 2. 5. Hyperlipidemia. 6. Hypertension. PLAN: 1. Admit to CCU. 2. The patient is started on IV Milrinone drip as per justice court deputy clerk. 3. Carvedilol 12.5 mg twice a day. 4. The patient to be reassessed in a.m., possibly starting him on high dose of diuresis, Lasix 100 mg twice a day as per justice court deputy clerk if his blood pressure permits. 5. Cardiology is being consulted for evaluation and further recommendations. 6. Reconcile home medications. 7. Deep venous thrombosis prophylaxis as appropriate. 8. Expected length of stay, 2 midnights or more. Job ID: [id number]
[2019-11-08 05:23] LABS: Anion Gap 13 mmol/L (10-20); BUN (Urea Nitrogen) 44 mg/dL (8.4-25.7); Calc. Creatinine Clearance 44 mL/min (70-130); Calcium 8.2 mg/dL (7.8-10.44); Carbon Dioxide 25 mmol/L (23-31); Chloride 106 mmol/L (98-107); Estimated GFR-MDRD 39; Glucose 211 mg/dL (83-110); Potassium 3.7 mmol/L (3.5-5.1); Sodium 140 mmol/L (136-145)
[2019-11-08 05:26] LABS: #Eosinphils 0.2 thou/uL (0.0-0.7); #Monocytes 0.6 thou/uL (0.11-0.59); #Neutrophils 3.1 thou/uL (1.40-6.50); %Basophils 0.5 % (0.0-1.0); %Eosinophils 3.5 % (0.0-10.0); %Lymphocytes 20.7 % (21.0-51.0); %Monocytes 12.6 % (0.0-10.0); %Neutrophils 62.6 % (42.0-75.0); Hemoglobin 9.9 g/dL (14.0-18.0); Mean Corpuscular HGB CONC 31.9 g/dL (32.0-36.0); Mean Corpuscular Hemoglobin 31.2 pg (27.0-31.0); Mean Corpuscular Volume 97.8 fL (78.0-98.0); Mean Platelet Volume 10.8 fL (7.4-10.4); Platelet Count 112 thou/uL (130-400); RBC Distribution Width 15.3 % (11.5-14.5); Red Blood Cell (RBC) Count 3.16 mill/uL (4.70-6.10); Troponin I 0.065 ng/mL (< 0.028)
[2019-11-08] MEDS: HumaLOG 300 UNITS/3 ML VIAL SC PRN ×3 (05:51→15:58)
[2019-11-08] MEDS: Levothyroxine Sodium 50 MCG TAB PO SCH (05:51)
[2019-11-08] MEDS ORDERED: Furosemide 100 MG/10 ML VIAL SLOW IVP SCH (06:00)
[2019-11-08] MEDS: Clopidogrel Bisulfate 75 MG TAB PO SCH (08:47)
[2019-11-08] MEDS: Carvedilol 6.25 MG TAB PO SCH ×2 (08:47→18:13)
[2019-11-08] MEDS: Aspirin Chewable 81 MG TAB PO SCH (08:47)
[2019-11-08] MEDS: Enoxaparin Sodium 30 MG/0.3 ML SYRINGE SC SCH (08:48)
[2019-11-08] MEDS: Insulin Glargine 10 UNITS in Pre-Filled Syringe 1 EACH SC SCH ×2 (08:48→21:29)
--- NOTE | 2019-11-08 09:21 | PRG ---
DATE OF SERVICE: 11/08/2019 SUBJECTIVE: Mr. Diaz is feeling much better today with the start of Milrinone. He said that he is breathing better, has more energy. He can feel the fluid coming off him. He believes the leg has gotten smaller. He was able to eat better this morning too. Last night in the ER, Lasix 80 mg IV did not produce much urine output at all. With a high creatinine of 2.37, Milrinone was started. After 12 hours of Milrinone 0.25 mcg/kg per minute, Lasix 100 mg IV was done. With that dose, he has a lot of volume output. In fact, he applied 1 L in this 1 hour. REVIEW OF SYSTEMS: GENERAL: There is no fever or chills. PULMONARY: He has less short of breath. CARDIOVASCULAR: There is no syncope. There are no palpitations. GI: He is eating better. : He does not note problem with urination. MUSCULOSKELETAL: He does have arthritis. He is not complaining of pain. INTEGUMENT: There are no new lesions. NEUROLOGIC: There are no new focal deficits. PSYCHIATRIC: He is feeling better. Today, has increased concentration. There is no depression. MEDICATIONS: His cardiac medications currently include: 1. Carvedilol 12.5 mg q.12 hours. 2. Milrinone 0.25 mcg//kg/minute. 3. Zetia 10 mg each night. 4. Atorvastatin 80 mg p.o. at bedtime. 5. Clopidogrel 75 mg daily. 6. He also has levothyroxine 50 mcg daily. PHYSICAL EXAMINATION: VITAL SIGNS: His heart rate 74 and blood pressure 112/70. GENERAL: He is alert and conversational, but he is able to speak well, able to concentrate this morning and also answer question. Much better this morning. He has definitely improvement in mental concentration response this morning. HEENT: Shows EOMI. PERRL. NECK: JVP of about 13 cm just below the earlobe. It is a little bit better than yesterday. LUNGS: Bilateral crackles at lower 1/3. HEART: Irregularly irregular rhythm. There was 2/6 holosystolic murmur at apex with radiation to the left axilla. ABDOMEN: Soft and nontender. There is a little bit ascitic fluid. EXTREMITIES: Lower extremity has 3+ pitting edema, does look greater than 1.5 cm pitting up to near his knees. This is a little bit better than yesterday. LABORATORY VALUES: Sodium 140, potassium 3.7, BUN 44, and creatinine has decreased down to 2.02. ASSESSMENT: A 74-year-old gentleman remains in AHA likely state D, [place] Heart Association class 4 heart failure with reduced ejection fraction. It is combination of nonischemic cardiomyopathy prior to 2018, then he had a myocardial infarction in January 2019. His heart failure had reduced his ejection fraction and inability to diurese that require inotrope augmentation. Milrinone augmentation apparently has worked quite well. We will need to continue this and how he reach near euvolemia at that point was switched from Milrinone to Entresto. RECOMMENDATIONS: 1. Continue Milrinone 0.25 mcg//kg/minute. 2. Continue with Lasix 100 mg b.i.d. for today. It may need to be decreased tomorrow. 3. Increase his potassium supplement starting at 10 mEq twice a day. 4. Please add BNP to tomorrow's morning labs. It is hoped that he will probably need Milrinone for 3 to 4 days until he reaches euvolemia, changeover to Entresto and then to oral diuretics. Overall, he probably needs at least 1-week stay in the hospital. It has been a pleasure taking care of Mr. Joe Red. If you have any questions, please give me a call. Job ID: [id number] MTDD
[2019-11-08] MEDS: Acetaminophen 325 MG TAB PO PRN ×2 (10:10→14:05)
[2019-11-08] MEDS: Furosemide 100 MG/10 ML VIAL SLOW IVP SCH (13:29)
--- NOTE | 2019-11-08 15:35 | CON ---
DATE OF CONSULTATION: 11/08/2019 SERVICE: Pulmonary Medicine. REASON FOR CONSULTATION: ICU patient. HISTORY OF PRESENT ILLNESS: The patient is a 74-year-old male with past medical history significant for advanced heart failure. [facility] and was put in the hospital to initiate a milrinone drip. The patient did not have any shortness of breath at rest. He is not having any orthopnea. He denies any fevers, chills, nausea, or vomiting. His biggest symptom is a dyspnea on exertion. This has been stable if not slightly improving since he has been in the hospital. He has been refractory to Lasix, though his creatinine is not terribly elevated. He denies any fevers or chills. He is not having any cough, myalgia, or malaise. He is otherwise in his usual state of health. PAST MEDICAL HISTORY: 1. Chronic systolic heart failure. 2. Atrial fibrillation. 3. Type 2 diabetes mellitus. 4. Hypertension. 5. Dyslipidemia. PAST SURGICAL HISTORY: 1. Herniorrhaphy. 2. Percutaneous coronary intervention. 3. Defibrillator placement. SOCIAL HISTORY: He has a history of smoking cigarettes. He has greater than 40 pack year history, but quit remotely. Denies any alcohol or illicit drugs. He has no exposure to chemicals, dust, asbestos, or tuberculosis. FAMILY HISTORY: Noncontributory. ALLERGIES: NO KNOWN DRUG ALLERGIES. MEDICATIONS: List of his inpatient medications was reviewed. No specific updates were made at this time. REVIEW OF SYSTEMS: General; head, ears, eyes, nose, throat; cardiovascular; respiratory; GI; ; musculoskeletal; neurologic; and skin are negative except as mentioned in the HPI. PHYSICAL EXAMINATION: VITAL SIGNS: Afebrile, pulse 93, blood pressure 104/71, respirations 16, and saturation 100% on room air. GENERAL: The patient is awake and alert, in no apparent distress. LUNGS: Wonderful air entry. Minimal dependent crackles are noted. There is no prolonged expiratory phase or wheezing appreciated. HEART: Normal rate and regular. ABDOMEN: Soft, nontender, and nondistended. Bowel sounds are positive. MUSCULOSKELETAL: No cyanosis or clubbing. There is 2+ pitting in the bilateral lower extremities. NEUROLOGIC: Grossly nonfocal. LABORATORY DATA: Creatinine 2.02 and gently downtrending. Basic metabolic profile is otherwise unremarkable. Troponin is downtrending to 0.05. Liver function studies were unremarkable except for minimally elevated alkaline phosphatase and AST. BNP 1500. IMAGING: Chest x-ray demonstrates cardiomegaly. Mild pulmonary vascular congestion is noted. There is an air distending the colon. Mild cephalization is present. Carinal angle does not appear to be severely enlarged. ASSESSMENT: 1. Acute on chronic systolic heart failure. 2. Chronic kidney disease. DISCUSSION AND PLAN: The patient is going to be diuresed on milrinone. The plan is to switch him over to Entresto once he returns to euvolemia. Diuretics will be continued twice daily. He seemed to have a very nice response with the 100 mg of IV Lasix. We will see whether or not he has decent response with 60 mg. If not, we will go back up on the dose. Pulmonary will continue to follow in the ICU. 70 minutes have been devoted to this patient in various activities. I personally reviewed all imaging studies and laboratory data noted within this document. For fifty percent of this time, I was interacting with the patient at the bedside or coordinating care with the care team. For the remainder of the time I was immediately available to the patient in the hospital unit. Job ID: [id number] MTDD
--- NOTE | 2019-11-08 18:58 | PDOC.HOSPP ---
- Subjective Encounter Date: 11/08/19 Encounter Time: 18:55 Subjective: The patient states he feels much better, had swelling all the way up to his thighs. He denies chest pain, he did report feeling short of breath on exertion before coming to the hospital. No fevers, chills or cough - Objective Vital Signs & Weight: Vital Signs (12 hours) Temp Pulse Pulse Pulse Resp BP BP 11/08/19 18:47 89 20 11/08/19 18:13 107/63 11/08/19 16:00 98.1 F 11/08/19 13:41 93 15 11/08/19 12:00 98.4 F 11/08/19 09:52 94 85 105/70 11/08/19 08:47 107/63 11/08/19 08:00 98.2 F BP Pulse Ox Pulse Ox Pulse Ox 11/08/19 18:47 100 11/08/19 18:13 11/08/19 16:00 11/08/19 13:41 100 11/08/19 12:00 11/08/19 09:52 111/58 L 100 99 11/08/19 08:47 11/08/19 08:00 100 Weight Admit Weight 208 lb 5.389 oz Weight 208 lb 15.971 oz Most Recent Monitor Data Heart Rate from ECG 101 NIBP 102/65 NIBP BP-Mean 75 Respiration from ECG 18 SpO2 98 I&O: 11/07/19 11/08/19 11/09/19 06:59 06:59 06:59 Intake Total 113.8 940 Output Total 1000 1695 Balance -886.2 -755 Result Diagrams: 11/08/19 04:44 11/08/19 04:45 Additional Labs: Accuchecks 11/08/19 11/08/19 11/08/19 15:59 11:32 05:51 POC Glucose 208 H 270 H 197 H 11/07/19 23:33 POC Glucose 268 H Hospitalist ROS - Review of Systems Constitutional: denies: fever, chills Eyes: denies: pain - Medication Medications: Active Medications Generic Name Dose Route Start Last Admin Trade Name Freq PRN Reason Stop Dose Admin Acetaminophen 650 mg 11/07/19 20:27 11/08/19 14:05 Tylenol PO 650 mg Q4H PRN Administration Headache/Fever/Mild Pain (1-3) Albuterol/Ipratropium 3 ml 11/08/19 01:00 11/08/19 18:47 Duoneb NEB 3 ml [id number] ARMOND Administration Aspirin 81 mg 11/08/19 09:00 11/08/19 08:47 Aspirin Chewable PO 81 mg DAILY ARMOND Administration Carvedilol 12.5 mg 11/08/19 08:00 11/08/19 18:13 Coreg PO 12.5 mg BID-WM ARMOND Administration Clopidogrel Bisulfate 75 mg 11/08/19 09:00 11/08/19 08:47 Plavix PO 75 mg DAILY ARMOND Administration Enoxaparin Sodium 30 mg 11/08/19 09:00 11/08/19 08:48 Lovenox SC 30 mg 0900 ARMOND Administration Famotidine 20 mg 11/07/19 21:00 11/07/19 21:48 Pepcid PO 20 mg QPM ARMOND Administration Furosemide 60 mg 11/08/19 14:00 11/08/19 13:29 Lasix SLOW IVP 60 mg 0600,1400 ARMOND Administration Milrinone Lactate 20 mg/ 100 mls @ 0 mls/hr 11/07/19 19:45 11/08/19 18:14 Sodium Chloride IVPB 100 mls INF ARMOND Administration Protocol As Directed Insulin Glargine 10 units/ 0.1 mls @ 0 mls/hr 11/08/19 09:00 11/08/19 08:48 Miscellaneous Medication SC 0.1 mls BID ARMOND Administration Insulin Human Lispro 0 units 11/07/19 22:54 11/08/19 15:58 Humalog SC 3 unit .MILD SLIDING SCALE PRN Administration Mild Correctional Scale Levothyroxine Sodium 50 mcg 11/08/19 06:00 11/08/19 05:51 Synthroid PO 50 mcg 0600 ARMOND Administration Sodium Chloride 10 ml 11/08/19 09:00 11/08/19 09:29 Flush - Normal Saline IVF 10 ml Q12HR ARMOND Administration - Exam General Appearance: NAD, awake alert Eye: PERRL, anicteric sclera ENT: normocephalic atraumatic, no oropharyngeal lesions Neck: supple, symmetric, no JVD, no thyromegaly Heart: RRR, no murmur, no gallops, no rubs Respiratory: CTAB, no wheezes, no rales, no ronchi Gastrointestinal: soft, non-tender, non-distended, normal bowel sounds Extremities: no cyanosis, no clubbing, no edema Skin: normal turgor, no lesions, no rashes Neurological: cranial nerve grossly intact, normal sensation to touch, no focal deficits, no new deficit Musculoskeletal: normal tone, normal strength, no muscle wasting Psychiatric: normal affect, normal behavior, A&O x 3, oriented to person Hosp A/P - Plan Chest X ray: borderline cardiomegaly and pulmonary venous congestion] This is a 74 year old male with a past medical history of CHF, afib, diabetes, CKD, hyperlipidemia, hypertension who presented to the ER with bilateral leg swelling and shortness of breath. He was admitted to CCU for starting milrinone drip Acute systolic CHF - continue IV milrinone drip per cardiology -s/p 100 mg IV lasix, given 60 mg IV per pulmonary. Will reasess in am - Troponin downtrending, defer further workup to cardiology - chest X ray showed cardiomegaly STEVE on CKD - creatinine improving to 2.07, continue diuresis - check UA Type II Diabetes - continue lantus 10 units BID - sliding scale insulin Atrial fibrillation s/p AICD- - continue aspirin Hyperlipidemia - continue statin and zetia Hypertension - continue coreg DVT prophylaxis: lovenox Code status: full code
[2019-11-08 20:44] LABS: Anion Gap 11 mmol/L (10-20); BUN (Urea Nitrogen) 40 mg/dL (8.4-25.7); Calc. Creatinine Clearance 42 mL/min (70-130); Calcium 8.3 mg/dL (7.8-10.44); Carbon Dioxide 29 mmol/L (23-31); Chloride 104 mmol/L (98-107); Estimated GFR-MDRD 38; Glucose 160 mg/dL (83-110); Potassium 3.8 mmol/L (3.5-5.1); Sodium 140 mmol/L (136-145)
[2019-11-08] MEDS ORDERED: FLU VACC TS2019-20(65YR UP)/PF 180 MCG/0.5 ML SYRINGE IM ONE (21:00)
[2019-11-08] MEDS ORDERED: Prevnar 13-Val Conj/PF 0.5 ML SYRINGE IM ONE (21:00)
[2019-11-08] MEDS: Famotidine 20 MG TAB PO SCH (21:27)
[2019-11-08] MEDS: Atorvastatin Calcium 40 MG TAB PO SCH (21:27)
[2019-11-08] MEDS: Ezetimibe 10 MG TAB PO SCH (21:28)
[2019-11-08 21:53] LABS: Bacteria/HPF None Seen HPF (None Seen); Mucous/LPF Rare LPF (<2+); RBC/HPF None Seen HPF (0-3); Squamous Epithelial 0-3 HPF (0-3); WBC/HPF 0-3 HPF (0-3)
[2019-11-09 03:54] LABS: Hemoglobin 9.8 g/dL (14.0-18.0); Mean Corpuscular HGB CONC 32.1 g/dL (32.0-36.0); Mean Corpuscular Hemoglobin 30.8 pg (27.0-31.0); Mean Corpuscular Volume 96.1 fL (78.0-98.0); Mean Platelet Volume 10.3 fL (7.4-10.4); Platelet Count 113 thou/uL (130-400); Red Blood Cell (RBC) Count 3.17 mill/uL (4.70-6.10); White Blood Cell (WBC) Count 5.6 thou/uL (4.8-10.8)
[2019-11-09 04:23] LABS: Anion Gap 10 mmol/L (10-20); BUN (Urea Nitrogen) 38 mg/dL (8.4-25.7); Calc. Creatinine Clearance 43 mL/min (70-130); Calcium 8.3 mg/dL (7.8-10.44); Carbon Dioxide 29 mmol/L (23-31); Chloride 104 mmol/L (98-107); Estimated GFR-MDRD 39; Glucose 178 mg/dL (83-110); Potassium 3.6 mmol/L (3.5-5.1); Sodium 139 mmol/L (136-145)
[2019-11-09] MEDS: Acetaminophen 325 MG TAB PO PRN ×2 (04:29→19:39)
[2019-11-09] MEDS: Furosemide 100 MG/10 ML VIAL SLOW IVP SCH ×2 (07:40→15:00)
[2019-11-09] MEDS: Levothyroxine Sodium 50 MCG TAB PO SCH (07:42)
[2019-11-09] MEDS: Carvedilol 6.25 MG TAB PO SCH ×2 (07:49→16:56)
[2019-11-09] MEDS: Aspirin Chewable 81 MG TAB PO SCH (07:49)
[2019-11-09] MEDS: Clopidogrel Bisulfate 75 MG TAB PO SCH (07:50)
[2019-11-09] MEDS: Enoxaparin Sodium 30 MG/0.3 ML SYRINGE SC SCH (07:50)
--- NOTE | 2019-11-09 07:55 | CON ---
DATE OF CONSULTATION: 11/07/2019 REASON FOR CONSULTATION: Acute exacerbation, decompensating heart failure. HISTORY OF PRESENT ILLNESS: Mr. Joe Red, 74-year-old gentleman with known history of a dilated cardiomyopathy and myocardial infarction, who was [facility] for decompensating heart failure. His heart failure started back in 1997. He was well treated and well tolerated for while. It was a nonischemic dilated cardiomyopathy at that time, however, he experienced an anterior CA in January 2019. He had occlusion in the mid LAD coronary artery. A bare metal stent was placed. A year ago in [place] 2018, he was able to walk 200 m and do chores around the house and did some yard mowing. However, after his myocardial infarction in January 2019, he has greatly decreased ability. He only can walk about 20 yards. He no longer could do chores around the house. He reportedly had a 16-pound weight gain over . This 16-pound weight gain due to fluid. His diuretic was increased to Bumex 2 mg twice a day. However, he was not able to get the fluid off. He continued to increase fluid weight gain, so consequently he was admitted. His also notes that he has greatly decreased mental concentration. He does not seem to be able to focus anymore, so Mr. Red also has decreased appetite with early stage disease. He says he only sleeps on one pillow. However, his said that he found very poorly a gurgling sound at nighttime for the last 2 weeks. Mr. Red still denies PND. However, he does admit to severe peripheral edema and also edema around the abdomen. PAST MEDICAL HISTORY: 1. Heart failure with reduced ejection fraction. EF about 20%. 2. History of recent myocardial infarction in January 2019 with stent placed in the mid LAD. 3. Atrial fibrillation. 4. History of stroke. 5. Diabetes, now on insulin. 6. History of hypertension. 7. Hyperlipidemia. SOCIAL HISTORY: 1. He is essentially a nonsmoker, stop smoking in 1974. 2. He denies alcohol use. 3. He denies illicit drug use. 4. He is living with his . They have been for over 37 years. FAMILY HISTORY: His father had congestive heart failure and diastolic congestive heart at age 77. His brother had a congestive heart failure. He also has a sister who had congestive heart failure. His mother of sudden cardiac at age 77. REVIEW OF SYSTEMS: GENERAL: He denies fever, chills, or productive cough. HEENT: Denied any change in vision, hearing, or swallowing. PULMONARY: He has greatly increased shortness of breath and small amount exercises cause dyspnea on exertion. CARDIOVASCULAR: Please see HPI. GI: He has early stage disease. Please see HPI. : He denies any difficulty with urination. MUSCULOSKELETAL: He does not endorse any severe joint pains. INTEGUMENT: There are no new skin lesions. NEUROLOGICAL: He does not have any focal deficits. PSYCH: He denies being depressed, however, he is more confused and has difficulty remembering things. ALLERGIES: NO KNOWN DRUG ALLERGIES. OUTPATIENT MEDICATIONS: Apparently consist of, 1. Carvedilol 25 mg twice per day. 2. Bumex 2 mg twice per day for 3 days, but that was decreased down to 2 mg once a day. 3. Warfarin 5 mg once per day except 2.5 mg on Tuesday and Tuesday. 4. Synthroid 50 mcg daily. 5. He could have been on torsemide 20 mg b.i.d., but is not sure, this needs to be clarified. PHYSICAL EXAMINATION: VITAL SIGNS: Heart rate of about 96, blood pressure 110/73. GENERAL: He is alert and conversational, but a bit confused. HEENT: EOMI. PERRL. Oropharynx benign. He has moist mucosa. NECK: His JVP is elevated all the way up to his earlobes that is about 15 cm. It is positive hepatojugular reflux. LUNGS: There are bilateral crackles in the lower half of the lung. HEART: Irregular with some some regularity. There is 2/6 holosystolic murmur at the apex with radiation to the axilla. ABDOMEN: Soft, nontender, little bit distended. Some slight ascitic wave. EXTREMITIES: Lower extremity, 3+ pitting edema that he can pinch in greater than 1.5 cm from his feet to above his knees. LABORATORY DATA: Sodium 139, potassium 5.3, BUN is 46, and creatinine 2.37, his baseline around 1.7, so this increase in creatinine. His hemoglobin A1c is 9.5. His OptiVol was also done. It showed he has a significantly decreased thorax impedance since September. This shows that he has a very much increased intrathoracic fluid. ASSESSMENT: 1. A 74-year-old gentleman, in [place] Heart Association likely Stage D with ejection fraction 20%, heart failure with reduced ejection fraction and [place] Heart Association Class 4 heart failure. He is currently volume overloaded with difficult diuresis. He does have renal insufficiency. He already has been on metolazone, torsemide and Bumex in the past with creatinine of 2.37, it would be very difficult to diurese him without inotropic support. Consequently, we will need to give inotropics support, increase cardiac output to perfuse the kidney in order to short-term diuresis. There is some chance that he can benefit from biventricular pacing which is NURSE PRACTITIONER-D. The decision needs to be checked out during the hospitalization. After successful diuresis with Marinol support, then this needs to be switched to Entresto. Please see the following for detailed recommendations. RECOMMENDATIONS: 1. Continue carvedilol 12.5 mg p.o. b.i.d. 2. Start Milrinone 0.125 mcg/kg/min. BP remains stable, systolic blood pressure above 90 and heart rate is less than 120, increase Milrinone to 0.25 mcg/kg/ minute. 3. On next dose of diuretic, use Lasix 100 mg IV b.i.d. 4. Continue Crestor 40 mg each night. 5. Continue anticoagulation, warfarin, however, during this visit with his consider switching it to apixaban 5 mg twice a day. 6. As we go towards successful diuresis, then we can switch from Milrinone to Entresto during inpatient. On the day of the switch, start Entresto 24/26 mg combination b.i.d. I will provide instructions for the switch. 7. Please consult Electrophysiology for consideration of upgrade to NURSE PRACTITIONER-D. Regardless, he will need to have his AICD interrogated to find out if he has significant amount of right ventricular pacing, right ventricular pacing would have a cause of heart failure. 8. It has been a pleasure taking care of Mr. Red. If you have any questions, please give me a call. Job ID: [id number] [facility]
--- NOTE | 2019-11-09 08:59 | PRG ---
DATE OF SERVICE: 11/09/2019 SUBJECTIVE: Mr. Joe Red had excellent day. He has a larger volume output. He was able to maintain systolic blood pressure above 110. He was able to walk around. He said his lower extremity edema has almost completely gone away. REVIEW OF SYSTEMS: GENERAL: There is no fever, chills, or productive cough. PULMONARY: There is no shortness of breath. He is much improved. CARDIOVASCULAR: There is no palpitations or syncope. GI: He is able to eat well. : He is able to urinate well without difficulties. MUSCULOSKELETAL: There is no complaint of joint pains. INTEGUMENT: There are no new skin lesions. NEUROLOGIC: There are no new focal deficits. CARDIAC MEDICATIONS: Include: 1. Carvedilol 12.5 mg b.i.d. 2. Clopidogrel 75 mg daily. 3. Zetia 10 mg daily. 4. Lasix IV now at 60 mg twice a day. 5. Milrinone at 0.25 mcg/kg per minute IV gtt, it was increased to 0.36 for about 8 hours, but then returned back down to 0.25 mcg/kg per minute IV gtt. 6. Atorvastatin 80 mg p.o. nightly. PHYSICAL EXAMINATION: VITAL SIGNS: Heart rate 91, blood pressure 114/71. GENERAL: He is alert and conversational, pleasant, sitting upright in bed. HEENT: EOMI, PERRL, oropharynx benign with moist mucosa. His JVP has decreased down to 11 cm. LUNGS: After cough, he has much more better air movement. Crackles only at the bases. This is a significant improvement. ABDOMEN: Soft, nontender, less distention. EXTREMITIES: Lower extremity edema has greatly decreased and now is only around the feet and ankle. His weight decreased from 94.8 kg yesterday down to 91.4 kg today. SIGNIFICANT LABORATORY FINDINGS: Sodium is 139, potassium 3.6, BUN at 38, his creatinine is holding steady at 2.05, slight decrease. ASSESSMENT: A 74-year-old gentleman, remains in [place] Heart Association stage C, probably stage D and [place] Heart Association IIIB heart failure with reduced ejection fraction. This is a combination of nonischemic cardiomyopathy followed by a myocardial infarction in 01/2019. He has responded beautifully to IV milrinone and IV Lasix. He is rapidly approaching on euvolemia. We will do IV Lasix at a reduced dose for one more day until tomorrow. We will switch to oral, and after that, we will attempt to make a conversion of milrinone to Entresto. RECOMMENDATIONS: 1. Continue with Lasix 60 mg IV b.i.d. for today only. 2. Stop IV Lasix tomorrow and is to change to Bumex 2 mg p.o. b.i.d. 3. Please supplement potassium 10 mEq b.i.d. 4. If beds are needed at CCU, he can be transported to telemetry floor. It has been a pleasure taking care of Mr. Red. If you have any question, please give me a call. Job ID: [id number] [facility]
[2019-11-09] MEDS: Insulin Glargine 10 UNITS in Pre-Filled Syringe 1 EACH SC SCH ×2 (09:28→19:47)
[2019-11-09] MEDS: Potassium Chloride 10 MEQ TAB PO SCH ×2 (09:28→19:39)
[2019-11-09] MEDS: HumaLOG 300 UNITS/3 ML VIAL SC PRN (11:09)
[2019-11-09] MEDS ORDERED: Potassium Chloride 20 MEQ TAB PO SCH (11:45)
--- NOTE | 2019-11-09 12:06 | PRG ---
DATE OF SERVICE: 11/09/2019 SERVICE: Pulmonary medicine. INTERVAL HISTORY: The patient is doing fine from respiratory standpoint. He is diuresing comfortably. There has been no interval change to his condition. Denies any fevers, chills, or overnight events. PHYSICAL EXAMINATION: VITAL SIGNS: Afebrile, pulse 95, blood pressure 113/67, respirations 20, and O2 saturation 98% on room air. GENERAL: The patient is awake and alert, in no apparent distress. LUNGS: Wonderful air entry with no prolonged expiratory phase, wheezing, rhonchi, or crackles. HEART: Normal rate, regular. ABDOMEN: Soft, nontender, nondistended. Bowel sounds are positive. MUSCULOSKELETAL: No cyanosis or clubbing. There is trace 1+ pitting in the bilateral lower extremities. NEUROLOGIC: Grossly nonfocal. LABORATORY DATA: Hemoglobin 9.8 and stable. CBC is otherwise unremarkable or stable. Creatinine 2.05 and stable. Basic metabolic profile is unremarkable. Potassium 3.6. Urinalysis is unremarkable. ASSESSMENT: 1. [id number] systolic heart failure. 2. Chronic kidney disease. DISCUSSION AND PLAN: I will replace the patient's potassium. He is going to continue on the Milrinone drip. He is responding very nicely to our diuretics at this point. Pulmonary will continue to follow in this location, but when he leaves the ICU, I will sign off. Please call with additional questions or concerns. Job ID: [id number]
[2019-11-09] MEDS ORDERED: Haloperidol Lactate 5 MG/ML VIAL SLOW IVP PRN (13:17)
--- NOTE | 2019-11-09 15:57 | PDOC.HOSPP ---
- Subjective Encounter Date: 11/09/19 Encounter Time: 13:00 Subjective: The patient was very confused today. He does not appear short of breath or have chest pain. Patient frequently trying to get out of bed, required restraints per nursing staff. Patient is asking for his to come pick him up. Patient states he wants to go home to see his ergonomics technician Dr. Guzmán, he is adamant that he is not in the hospital right now, but when asked what building he is in, he doesn' t say. - Objective Vital Signs & Weight: Vital Signs (12 hours) Temp Pulse Pulse Pulse Resp BP BP 11/09/19 12:00 99.1 F 11/09/19 08:50 93 100 116/62 11/09/19 08:00 99.0 F 11/09/19 07:49 119/73 11/09/19 06:50 87 17 11/09/19 04:00 98.8 F BP Pulse Ox 11/09/19 12:00 11/09/19 08:50 103/63 11/09/19 08:00 100 11/09/19 07:49 11/09/19 06:50 96 11/09/19 04:00 Weight Admit Weight 208 lb 5.389 oz Weight 201 lb 8.04 oz Most Recent Monitor Data Heart Rate from ECG 91 NIBP 106/75 NIBP BP-Mean 93 Respiration from ECG 39 SpO2 94 I&O: 11/08/19 11/09/19 11/10/19 06:59 06:59 06:59 Intake Total 113.8 1092.8 200 Output Total 1000 3420 1310 Balance -886.2 -2327.2 -1110 Result Diagrams: 11/09/19 03:25 11/09/19 03:25 Additional Labs: Accuchecks 11/09/19 11/09/19 11/08/19 11:08 06:26 21:32 POC Glucose 256 H 149 H 160 H 11/08/19 15:59 POC Glucose 208 H Hospitalist ROS - Review of Systems Constitutional: denies: fever, chills - Medication Medications: Active Medications Generic Name Dose Route Start Last Admin Trade Name Freq PRN Reason Stop Dose Admin Acetaminophen 650 mg 11/07/19 20:27 11/09/19 04:29 Tylenol PO 650 mg Q4H PRN Administration Headache/Fever/Mild Pain (1-3) Albuterol/Ipratropium 3 ml 11/08/19 01:00 11/09/19 13:20 Duoneb NEB Not Given Q0LV-AN ARMOND Aspirin 81 mg 11/08/19 09:00 11/09/19 07:49 Aspirin Chewable PO 81 mg DAILY ARMOND Administration Atorvastatin Calcium 80 mg 11/08/19 21:00 11/08/19 21:27 Lipitor PO 80 mg HS ARMOND Administration Carvedilol 12.5 mg 11/08/19 08:00 11/09/19 07:49 Coreg PO 12.5 mg BID-WM ARMOND Administration Clopidogrel Bisulfate 75 mg 11/08/19 09:00 11/09/19 07:50 Plavix PO 75 mg DAILY ARMOND Administration Ezetimibe 10 mg 11/08/19 21:00 11/08/19 21:28 Zetia PO 10 mg HS ARMOND Administration Enoxaparin Sodium 30 mg 11/08/19 09:00 11/09/19 07:50 Lovenox SC 30 mg 0900 ARMOND Administration Famotidine 20 mg 11/07/19 21:00 11/08/19 21:27 Pepcid PO 20 mg QPM ARMOND Administration Milrinone Lactate 20 mg/ 100 mls @ 0 mls/hr 11/07/19 19:45 11/09/19 07:54 Sodium Chloride IVPB 100 mls INF ARMOND Administration Protocol As Directed Insulin Glargine 10 units/ 0.1 mls @ 0 mls/hr 11/08/19 09:00 11/09/19 09:28 Miscellaneous Medication SC 0.1 mls BID ARMOND Administration Insulin Human Lispro 0 units 11/07/19 22:54 11/09/19 11:09 Humalog SC 4 unit .MILD SLIDING SCALE PRN Administration Mild Correctional Scale Levothyroxine Sodium 50 mcg 11/08/19 06:00 11/09/19 07:42 Synthroid PO 50 mcg 0600 ARMOND Administration Potassium Chloride 10 meq 11/09/19 09:00 11/09/19 09:28 Klor-Con 10 PO 10 meq BID ARMOND Administration Sodium Chloride 10 ml 11/08/19 09:00 11/09/19 07:50 Flush - Normal Saline IVF 10 ml Q12HR ARMOND Administration - Exam General Appearance: NAD, awake alert Eye: PERRL, anicteric sclera ENT: normocephalic atraumatic, no oropharyngeal lesions Neck: supple, symmetric, no JVD, no thyromegaly Heart: RRR, no murmur, no gallops, no rubs Respiratory: CTAB, no wheezes, no rales, no ronchi Gastrointestinal: soft, non-tender, non-distended, normal bowel sounds Extremities: no cyanosis, no clubbing, no edema Skin: normal turgor, no lesions, no rashes Neurological: cranial nerve grossly intact, normal sensation to touch, no focal deficits, no new deficit Hosp A/P - Plan Chest X ray: borderline cardiomegaly and pulmonary venous congestion] This is a 74 year old male with a past medical history of CHF, afib, diabetes, CKD, hyperlipidemia, hypertension who presented to the ER with bilateral leg swelling and shortness of breath. He was admitted to CCU for starting milrinone drip Acute systolic CHF - continue IV milrinone drip per cardiology - 60 mg IV lasix bid today, then switching to bumetanide 2 mg po bid tomorrow - potassium standing bid - troponin downtrending, chest X ray showed cardiomegaly Acute encephalopathy - order seroquel prn, if no improvement, then haldol STEVE on CKD - creatinine improving to 2.04, continue diuresis - UA unremarkable Type II Diabetes - continue lantus 10 units BID - sliding scale insulin Atrial fibrillation s/p AICD- - continue aspirin Hyperlipidemia - continue statin and zetia Hypertension - continue coreg DVT prophylaxis: lovenox Code status: full code
[2019-11-09] MEDS ORDERED: Lorazepam 0.5 MG TAB PO SCH (18:45)
[2019-11-09] MEDS: Famotidine 20 MG TAB PO SCH (19:38)
[2019-11-09] MEDS: Lorazepam 2 MG/ML VIAL SLOW IVP PRN (19:38)
[2019-11-09] MEDS: Atorvastatin Calcium 40 MG TAB PO SCH (19:39)
[2019-11-09] MEDS: Ezetimibe 10 MG TAB PO SCH (19:39)
[2019-11-10] MEDS: Lorazepam 2 MG/ML VIAL SLOW IVP PRN (02:25)
[2019-11-10 03:31] LABS: #Eosinphils 0.3 thou/uL (0.0-0.7); #Lymphocytes 1.1 thou/uL (1.20-3.40); #Neutrophils 4.9 thou/uL (1.40-6.50); %Basophils 0.5 % (0.0-1.0); %Eosinophils 3.4 % (0.0-10.0); %Lymphocytes 14.6 % (21.0-51.0); %Monocytes 13.9 % (0.0-10.0); %Neutrophils 67.5 % (42.0-75.0); Hemoglobin 10.6 g/dL (14.0-18.0); Mean Corpuscular HGB CONC 31.5 g/dL (32.0-36.0); Mean Corpuscular Hemoglobin 30.5 pg (27.0-31.0); Mean Corpuscular Volume 96.9 fL (78.0-98.0); Mean Platelet Volume 10.2 fL (7.4-10.4); Platelet Count 133 thou/uL (130-400); RBC Distribution Width 15.2 % (11.5-14.5); Red Blood Cell (RBC) Count 3.46 mill/uL (4.70-6.10); White Blood Cell (WBC) Count 7.3 thou/uL (4.8-10.8)
[2019-11-10 03:52] LABS: Anion Gap 12 mmol/L (10-20); BUN (Urea Nitrogen) 32 mg/dL (8.4-25.7); Calc. Creatinine Clearance 44 mL/min (70-130); Carbon Dioxide 27 mmol/L (23-31); Chloride 107 mmol/L (98-107); Estimated GFR-MDRD 43; Glucose 99 mg/dL (83-110); Magnesium 2.3 mg/dL (1.6-2.6); Potassium 3.8 mmol/L (3.5-5.1); Sodium 142 mmol/L (136-145)
[2019-11-10] MEDS: Levothyroxine Sodium 50 MCG TAB PO SCH (07:08)
[2019-11-10] MEDS: Bumetanide 1 MG TAB PO SCH ×2 (08:42→17:22)
[2019-11-10] MEDS: Carvedilol 6.25 MG TAB PO SCH ×2 (08:43→17:22)
[2019-11-10] MEDS ORDERED: Apixaban 5 MG TAB PO SCH (09:00)
[2019-11-10] MEDS: Potassium Chloride 10 MEQ TAB PO SCH ×2 (09:11→20:31)
[2019-11-10] MEDS: Clopidogrel Bisulfate 75 MG TAB PO SCH (09:11)
[2019-11-10] MEDS: Aspirin Chewable 81 MG TAB PO SCH (09:11)
--- NOTE | 2019-11-10 09:11 | PRG ---
DATE OF SERVICE: 11/10/2019 SUBJECTIVE: Joe Red remains in the ICU. He is on IV milrinone drip. He has a previous history of coronary artery disease and stenting. He has a congestive heart failure. 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 OBJECTIVE: VITAL SIGNS: His pulse is 84, blood pressure 115/87, saturations are 93% on room air, respiratory rate 17. CHEST: Revealed bilateral crackles. CARDIAC: Normal S1 and S2. No gallops. ABDOMEN: Soft. NEUROLOGIC: He opens his eyes, but he remains extremely weak. ASSESSMENT: Congestive heart failure, cerebrovascular accident, and renal failure. His creatinine is 1.87. White count 7000. PLAN: He can be transferred out of the ICU. Continue aggressive PT, supportive care, and neb treatments. We will follow. Job ID: [id number]
[2019-11-10] MEDS: Enoxaparin Sodium 30 MG/0.3 ML SYRINGE SC SCH (09:12)
[2019-11-10] MEDS: Insulin Glargine 10 UNITS in Pre-Filled Syringe 1 EACH SC SCH ×2 (09:50→10:15)
[2019-11-10] MEDS ORDERED: Dextrose 50 % In Water 50 ML SYRINGE ONE (10:44)
--- NOTE | 2019-11-10 12:32 | PDOC.HOSPP ---
- Subjective Encounter Date: 11/10/19 Encounter Time: 12:30 Subjective: Mr. Red was seen today in follow-up of CHF exacerbation. He is confused. He does not endorse any problems, denies feeling short of breath. - Objective Vital Signs & Weight: Vital Signs (12 hours) Temp Pulse Resp BP Pulse Ox 11/10/19 08:43 108/68 11/10/19 08:00 98.3 F 100 11/10/19 07:44 88 14 99 11/10/19 04:00 98.1 F Weight Admit Weight 208 lb 5.389 oz Weight 196 lb 10.437 oz Most Recent Monitor Data Heart Rate from ECG 80 NIBP 117/82 NIBP BP-Mean 93 Respiration from ECG 23 SpO2 100 I&O: 11/09/19 11/10/19 11/11/19 06:59 06:59 06:59 Intake Total 1092.8 483.8 Output Total 3420 2460 300 Balance -2327.2 -1976.2 -300 Result Diagrams: 11/10/19 03:20 11/10/19 03:20 Additional Labs: Accuchecks 11/10/19 11/10/19 11/10/19 12:04 10:30 10:12 POC Glucose 138 H 57 L* 53 L* 11/09/19 11/09/19 19:46 16:58 POC Glucose 167 H 111 H Hospitalist ROS - Medication Medications: Active Medications Generic Name Dose Route Start Last Admin Trade Name Freq PRN Reason Stop Dose Admin Acetaminophen 650 mg 11/07/19 20:27 11/09/19 19:39 Tylenol PO 650 mg Q4H PRN Administration Headache/Fever/Mild Pain (1-3) Albuterol/Ipratropium 3 ml 11/08/19 01:00 11/10/19 07:44 Duoneb NEB 3 ml [id number] ARMOND Administration Aspirin 81 mg 11/08/19 09:00 11/10/19 09:11 Aspirin Chewable PO 81 mg DAILY ARMOND Administration Atorvastatin Calcium 80 mg 11/08/19 21:00 11/09/19 19:39 Lipitor PO 80 mg HS ARMOND Administration Bumetanide 2 mg 11/10/19 07:30 11/10/19 08:42 Bumex PO 11/10/19 17:00 2 mg BID-AC ARMOND Administration Carvedilol 12.5 mg 11/08/19 08:00 11/10/19 08:43 Coreg PO 12.5 mg BID-WM ARMOND Administration Clopidogrel Bisulfate 75 mg 11/08/19 09:00 11/10/19 09:11 Plavix PO 75 mg DAILY ARMOND Administration Dextrose/Water 25 gm 11/07/19 22:54 11/10/19 10:55 Dextrose 50% SLOW IVP 25 gm PRN PRN Administration Hypoglycemia Ezetimibe 10 mg 11/08/19 21:00 11/09/19 19:39 Zetia PO 10 mg HS ARMOND Administration Famotidine 20 mg 11/07/19 21:00 11/09/19 19:38 Pepcid PO 20 mg QPM ARMOND Administration Milrinone Lactate 20 mg/ 100 mls @ 0 mls/hr 11/07/19 19:45 11/10/19 00:25 Sodium Chloride IVPB 100 mls INF ARMOND Administration Protocol As Directed Insulin Glargine 10 units/ 0.1 mls @ 0 mls/hr 11/08/19 09:00 11/10/19 10:15 Miscellaneous Medication SC Not Given BID [facility] Insulin Human Lispro 0 units 11/07/19 22:54 11/09/19 11:09 Humalog SC 4 unit .MILD SLIDING SCALE PRN Administration Mild Correctional Scale Levothyroxine Sodium 50 mcg 11/08/19 06:00 11/10/19 07:08 Synthroid PO 50 mcg 0600 ARMOND Administration Lorazepam 0.5 mg 11/09/19 18:45 11/10/19 02:25 Ativan SLOW IVP 0.5 mg Q6H PRN Administration Anxiety/Agitation Potassium Chloride 10 meq 11/09/19 09:00 11/10/19 09:11 Klor-Con 10 PO 10 meq BID RAMOND Administration Sacubitril/Valsartan 1 tab 11/10/19 09:00 11/10/19 09:25 Entresto 24 Mg-26 Mg Tablet PO 1 tab BID ARMOND Administration Sodium Chloride 10 ml 11/08/19 09:00 11/10/19 09:12 Flush - Normal Saline IVF 10 ml Q12HR ARMOND Administration - Exam Eye: PERRL Heart: RRR, no murmur, no gallops, no rubs, normal peripheral pulses Respiratory: CTAB, no wheezes, no rales, no ronchi, normal chest expansion Gastrointestinal: soft, non-tender, non-distended, normal bowel sounds, no palpable masses, no hepatomegaly Extremities: no cyanosis, 1+ LE edema Hosp A/P (1) Acute on chronic systolic heart failure, NYHA class 3 Code(s): I50.23 - ACUTE ON CHRONIC SYSTOLIC (CONGESTIVE) HEART FAILURE Status : Acute (2) DM2 (diabetes mellitus, type 2) Status: Chronic (3) HLD (hyperlipidemia) Code(s): E78.5 - HYPERLIPIDEMIA, UNSPECIFIED Status: Chronic (4) HTN (hypertension) Code(s): I10 - ESSENTIAL (PRIMARY) HYPERTENSION Status: Chronic - Plan * Acute on chronic systolic heart failure- better compensated- he has been transition to oral diuretics * He has been started on Entresto * AFIB- his heart rate is controlled- continue Eliquis for CVA prevention * Encephalopathy- ? etiology- ( underlying dementia? ) * HTN- his blood pressure is stable * DM- he had 2 episodes of hypoglycemia earlier- will decrease his dose of Lantus
[2019-11-10] MEDS: Ezetimibe 10 MG TAB PO SCH (20:30)
[2019-11-10] MEDS: Atorvastatin Calcium 40 MG TAB PO SCH (20:30)
[2019-11-10] MEDS: Famotidine 20 MG TAB PO SCH (20:31)
[2019-11-10] MEDS: risperiDONE 0.25 MG TAB PO SCH (20:31)
[2019-11-10] MEDS: Apixaban 5 MG TAB PO SCH (20:31)
[2019-11-10] MEDS: Acetaminophen 325 MG TAB PO PRN (21:13)
[2019-11-10] MEDS: Insulin Glargine 8 UNITS in Pre-Filled Syringe SC SCH (21:13)
[2019-11-11 03:59] LABS: #Eosinphils 0.1 thou/uL (0.0-0.7); #Lymphocytes 0.9 thou/uL (1.20-3.40); #Monocytes 0.8 thou/uL (0.11-0.59); #Neutrophils 5.4 thou/uL (1.40-6.50); %Basophils 0.5 % (0.0-1.0); %Eosinophils 1.3 % (0.0-10.0); %Monocytes 11.5 % (0.0-10.0); %Neutrophils 74.7 % (42.0-75.0); Hemoglobin 10.6 g/dL (14.0-18.0); Mean Corpuscular HGB CONC 31.1 g/dL (32.0-36.0); Mean Corpuscular Hemoglobin 30.2 pg (27.0-31.0); Mean Platelet Volume 10.3 fL (7.4-10.4); Platelet Count 146 thou/uL (130-400); RBC Distribution Width 15.2 % (11.5-14.5); Red Blood Cell (RBC) Count 3.52 mill/uL (4.70-6.10); White Blood Cell (WBC) Count 7.3 thou/uL (4.8-10.8)
[2019-11-11 04:20] LABS: Anion Gap 13 mmol/L (10-20); BUN (Urea Nitrogen) 26 mg/dL (8.4-25.7); Calc. Creatinine Clearance 48 mL/min (70-130); Calcium 8.6 mg/dL (7.8-10.44); Carbon Dioxide 26 mmol/L (23-31); Chloride 105 mmol/L (98-107); Estimated GFR-MDRD 47; Glucose 202 mg/dL (83-110); Magnesium 2.2 mg/dL (1.6-2.6); Potassium 4.1 mmol/L (3.5-5.1); Sodium 140 mmol/L (136-145)
[2019-11-11] MEDS: Levothyroxine Sodium 50 MCG TAB PO SCH (06:05)
[2019-11-11] MEDS: Torsemide 20 MG TAB PO SCH (09:13)
[2019-11-11] MEDS: Carvedilol 6.25 MG TAB PO SCH ×2 (09:32→17:20)
[2019-11-11] MEDS ORDERED: Albumin 25% 0 ML ONE (09:41)
[2019-11-11] MEDS ORDERED: Albumin 5% 0 ML ONE (09:41)
[2019-11-11] MEDS ORDERED: Albumin 25% 25 GM/100 ML BOT IVPB SCH (10:30)
--- NOTE | 2019-11-11 10:30 | CT ---
Exam: Chest CT scan without IV contrast: HISTORY: Fluid overload concern for pulmonary fibrosis and emphysema nonproductive cough FINDINGS: Cardiomegaly. Transvenous pacemaker. 3 vessel coronary artery calcific disease. Cardiomegaly. Minimal right pleural thickening and possible trace pericardial effusion. Nonspecific minimal increased linear and interstitial markings throughout both lungs. No significant emphysema or hyperinflation. P roximal pulmonary artery segments are minimally dilated up to 3.1 cm. No mediastinal mass or adenopathy. On the most caudal image in the region of the tail of the spleen there is a 1.5 x 2.3 cm thin-walled cystic focus. IMPRESSION: Minimal increased linear interstitial markings bilaterally. Trace right pleural thickening and perica rdial effusion. Minimal dilatation of the proximal pulmonary artery segments bilaterally evidence for possible pulmonary hypertension. 1.5 x 2.3 cm thin-walled cyst/cystic mass in the region of the tail of the pancreas. Consider nonemer gent follow-up abdomen CT scan with and without IV contrast with pancreatic mass protocol.
--- NOTE | 2019-11-11 10:52 | PDOC.HOSPP ---
- Subjective Encounter Date: 11/11/19 Encounter Time: 10:49 Subjective: Mr. Red was seen today in follow-up of CHF exacerbation. He is a bit less confused. His brother is at bedside, and admits that the patient has been diagnosed with Dementia, and has memory problems from time to time. The patient does not have any complaints. He is disoriented to year, but was able to tell me he is in the hospital, and that it is October, and is the holiday coming up. He does not have any complaints. - Objective Vital Signs & Weight: Vital Signs (12 hours) Temp Pulse Resp BP Pulse Ox 11/11/19 10:28 98.3 F 11/11/19 09:32 77/54 L 11/11/19 07:08 98.9 F 11/11/19 06:57 118 H 25 H 99 11/11/19 03:02 99.0 F 11/11/19 00:38 118 H 22 H 99 11/10/19 23:06 99.0 F Weight Admit Weight 208 lb 5.389 oz Weight 194 lb 7.163 oz Most Recent Monitor Data Heart Rate from ECG 103 NIBP 133/102 NIBP BP-Mean 112 Respiration from ECG 23 SpO2 100 I&O: 11/10/19 11/11/19 11/12/19 06:59 06:59 06:59 Intake Total 483.8 994 Output Total 2460 525 Balance -1976.2 469 Result Diagrams: 11/11/19 03:29 11/11/19 03:29 Additional Labs: Accuchecks 11/11/19 11/11/19 11/11/19 10:23 06:09 00:49 POC Glucose 271 H 241 H 188 H 11/10/19 11/10/19 11/10/19 20:18 16:27 12:04 POC Glucose 73 82 138 H Hospitalist ROS - Medication Medications: Active Medications Generic Name Dose Route Start Last Admin Trade Name Freq PRN Reason Stop Dose Admin Acetaminophen 650 mg 11/07/19 20:27 11/10/19 21:13 Tylenol PO 650 mg Q4H PRN Administration Headache/Fever/Mild Pain (1-3) Albuterol/Ipratropium 3 ml 11/08/19 01:00 11/11/19 06:57 Duoneb NEB 3 ml [id number] ARMOND Administration Apixaban 5 mg 11/10/19 21:00 11/10/19 20:31 Eliquis PO 5 mg BID ARMOND Administration Aspirin 81 mg 11/08/19 09:00 11/10/19 09:11 Aspirin Chewable PO 81 mg DAILY ARMOND Administration Atorvastatin Calcium 80 mg 11/08/19 21:00 11/10/19 20:30 Lipitor PO 80 mg HS ARMOND Administration Carvedilol 12.5 mg 11/08/19 08:00 11/11/19 09:32 Coreg PO Not Given BID-WM ARMOND Clopidogrel Bisulfate 75 mg 11/08/19 09:00 11/10/19 09:11 Plavix PO 75 mg DAILY ARMOND Administration Dextrose/Water 25 gm 11/07/19 22:54 11/10/19 10:55 Dextrose 50% SLOW IVP 25 gm PRN PRN Administration Hypoglycemia Ezetimibe 10 mg 11/08/19 21:00 11/10/19 20:30 Zetia PO 10 mg HS ARMOND Administration Famotidine 20 mg 11/07/19 21:00 11/10/19 20:31 Pepcid PO 20 mg QPM ARMOND Administration Milrinone Lactate 20 mg/ 100 mls @ 0 mls/hr 11/07/19 19:45 11/10/19 00:25 Sodium Chloride IVPB 100 mls INF ARMOND Administration Protocol As Directed Insulin Glargine 8 units/ 0.08 mls @ 0 mls/hr 11/10/19 21:00 11/10/19 21:13 Miscellaneous Medication SC 0.08 mls BID ARMOND Administration Insulin Human Lispro 0 units 11/07/19 22:54 11/09/19 11:09 Humalog SC 4 unit .MILD SLIDING SCALE PRN Administration Mild Correctional Scale Levothyroxine Sodium 50 mcg 11/08/19 06:00 11/11/19 06:05 Synthroid PO 50 mcg 0600 ARMOND Administration Lorazepam 0.5 mg 11/09/19 18:45 11/10/19 02:25 Ativan SLOW IVP 0.5 mg Q6H PRN Administration Anxiety/Agitation Potassium Chloride 10 meq 11/09/19 09:00 11/10/19 20:31 Klor-Con 10 PO 10 meq BID ARMOND Administration Risperidone 0.5 mg 11/10/19 21:00 11/10/19 20:31 Risperidone PO 0.5 mg HS ARMOND Administration Sodium Chloride 10 ml 11/08/19 09:00 11/11/19 09:33 Flush - Normal Saline IVF Not Given Q12HR ARMOND Torsemide 40 mg 11/11/19 09:00 11/11/19 09:13 Demadex PO Not Given DAILY ARMOND - Exam Eye: PERRL Heart: no murmur, no rubs, irregular Respiratory: no wheezes, no ronchi, no tachypnea, rales Gastrointestinal: soft, non-tender, non-distended, normal bowel sounds, no palpable masses, no hepatomegaly Extremities: no cyanosis, no edema Hosp A/P (1) Acute on chronic systolic heart failure, NYHA class 3 Code(s): I50.23 - ACUTE ON CHRONIC SYSTOLIC (CONGESTIVE) HEART FAILURE Status : Acute (2) DM2 (diabetes mellitus, type 2) Status: Chronic (3) HLD (hyperlipidemia) Code(s): E78.5 - HYPERLIPIDEMIA, UNSPECIFIED Status: Chronic (4) HTN (hypertension) Code(s): I10 - ESSENTIAL (PRIMARY) HYPERTENSION Status: Chronic - Plan * Acute on chronic systolic heart failure-he was hypotensive this morning- likely due to volume depletion. Dr. Estrada has given him some IV fluid back * Entresto has been discontinued * AFIB- his heart rate is variable- continue Eliquis for CVA prevention * Dementia- he may be close to his baseline- his brother did not appear concerned about his current mental state * HTN- blood pressure is better after fluid bolus * DM- his blood glucose is a bit elevated- continue to monitor- given the low readings he had yesterday
--- NOTE | 2019-11-11 10:55 | PRG ---
DATE OF SERVICE: 11/11/2019 SUBJECTIVE: Mr. Joe Red had a better day with risperidone overnight and sleep. He is less confused and not trying to get out of bed or leave the hospital. However, he still remains a bit confused from ICU psychosis. Entresto was started yesterday. However, with starting Entresto, his blood pressure started to go down. This morning, his systolic blood pressure ranged between 81 and 87. Thus, Entresto will need to be stopped. His 2-lead AICD was also interrogated. It shows that he has an atrial tachycardia at different rates. He really does not have the atrial fibrillation; however, the atrial tachycardia from different sources is being conducted and that is causing dysrhythmia seen. REVIEW OF SYSTEMS: GENERAL: He denies fever or chills. HEENT: There is no changing in vision, hearing, or swallowing. PULMONARY: He is breathing easy. CARDIOVASCULAR: He really does not have any complaints. GI: He does eat well. : He has some trouble in urination, but then he seemed to be doing alright. MUSCULOSKELETAL: He does not complain of any joint pains. INTEGUMENT: There is no new lesions. NEUROLOGIC: He does not have any focal deficit. However, he remains confused. PHYSICAL EXAMINATION: VITAL SIGNS: From telemetry his average heart rate is 87. This morning, his average heart rate is faster at about 100-210. GENERAL: He is alert and conversational. Besides low blood pressure, he is not complaining of feeling dizzy or weak. HEENT: Show EOMI. PERRL. Oropharynx is benign. NECK: His JVD is about 9 cm. This is the lowest I have seen. LUNGS: There are good air movements bilateral. HEART: Irregularly irregular, a little bit tachycardic with 2/6 holosystolic murmur at the apex. ABDOMEN: Soft, nontender. Positive bowel sounds. They are very soft. EXTREMITIES: Lower extremities are without edema. There is quite a bit of loose tissue now. LABORATORY VALUES: Sodium 140, potassium 4.1, BUN 26, creatinine 1.72, his BNP has dropped from admission of 1509 down to 970.8, this is the best we have ever seen. ASSESSMENT: A 74-year-old gentleman resides [place] Heart Association stage C or D, [place] Heart Association class 3B heart failure with reduced ejection fraction. He has now shown that he does not tolerate Entresto. By exam and low blood pressure, he is probably also a bit volume depleted today, so the volume will need to be repleted. We will need to have to find a new regimen for him. The Milrinone had greatly helped him, but I am not sure that we can wean off the Milrinone. We will be spending next three days trying to wean off the Milrinone and finding the best way for him to go home with. RECOMMENDATIONS: Please see the following for my recommendations; 1. Stop Entresto now. 2. Give normal saline for 500 mL, this include first at 250 mL/hr for first hour and 125 mL for next 3 hours. Continue with carvedilol 12.5 mg p.o. b.i.d. Add amiodarone 200 mg p.o. b.i.d. Hold torsemide for today and restart tomorrow, and tomorrow morning, even things look well, we will start titrating off Milrinone. It has been a pleasure taking care of Mr. Red. If you have any questions, please give me a call. Job ID: [id number] MTDD
[2019-11-11] MEDS ORDERED: Amiodarone 200 MG TAB PO SCH ×2 (11:00→21:00)
[2019-11-11] MEDS: Potassium Chloride 10 MEQ TAB PO SCH ×2 (11:07→20:40)
[2019-11-11] MEDS: Acetaminophen 325 MG TAB PO PRN ×2 (11:07→20:40)
[2019-11-11] MEDS: Clopidogrel Bisulfate 75 MG TAB PO SCH (11:07)
[2019-11-11] MEDS: Aspirin Chewable 81 MG TAB PO SCH (11:08)
[2019-11-11] MEDS: Apixaban 5 MG TAB PO SCH ×2 (11:08→20:40)
[2019-11-11] MEDS: Sodium Chloride 0.9% 500 ML IV SCH ×2 (11:08→13:31)
[2019-11-11] MEDS: Insulin Glargine 8 UNITS in Pre-Filled Syringe SC SCH ×2 (11:09→20:38)
--- NOTE | 2019-11-11 11:48 | PRG ---
DATE OF SERVICE: 11/11/2019 SUBJECTIVE: Joe Rde denies any pain or discomfort or shortness of breath. OBJECTIVE: VITAL SIGNS: Temperature 98, pulse 100, blood pressure 103/44, saturations 100%, respirations 18. CHEST: No wheezing. CARDIAC: Normal S1 and S2. ABDOMEN: No mass. LABORATORY DATA: Creatinine 1.72. BNP 970. CT chest done yesterday for unknown reasons at this time. Concern for pulmonary fibrosis presumably noted. No PE was seen. IMPRESSION: Azotemia, increasing congestive heart failure. PLAN: Continue present supportive care, PT. We will follow while in the MICU. Job ID: [id number]
[2019-11-11] MEDS: HumaLOG 300 UNITS/3 ML VIAL SC PRN ×2 (17:20→20:38)
[2019-11-11] MEDS: risperiDONE 0.25 MG TAB PO SCH (20:39)
[2019-11-11] MEDS: Atorvastatin Calcium 40 MG TAB PO SCH (20:40)
[2019-11-11] MEDS: Ezetimibe 10 MG TAB PO SCH (20:40)
[2019-11-11] MEDS: Famotidine 20 MG TAB PO SCH (20:40)
[2019-11-12 03:54] LABS: #Eosinphils 0.3 thou/uL (0.0-0.7); #Lymphocytes 0.9 thou/uL (1.20-3.40); #Monocytes 0.9 thou/uL (0.11-0.59); #Neutrophils 4.2 thou/uL (1.40-6.50); %Basophils 0.2 % (0.0-1.0); %Eosinophils 4.1 % (0.0-10.0); %Lymphocytes 14.8 % (21.0-51.0); %Monocytes 14.1 % (0.0-10.0); %Neutrophils 66.8 % (42.0-75.0); Hemoglobin 9.8 g/dL (14.0-18.0); Mean Corpuscular HGB CONC 31.9 g/dL (32.0-36.0); Mean Corpuscular Hemoglobin 30.6 pg (27.0-31.0); Mean Corpuscular Volume 95.9 fL (78.0-98.0); Platelet Count 155 thou/uL (130-400); RBC Distribution Width 14.9 % (11.5-14.5); Red Blood Cell (RBC) Count 3.19 mill/uL (4.70-6.10); White Blood Cell (WBC) Count 6.3 thou/uL (4.8-10.8)
[2019-11-12 04:15] LABS: Anion Gap 12 mmol/L (10-20); BUN (Urea Nitrogen) 29 mg/dL (8.4-25.7); Calc. Creatinine Clearance 37 mL/min (70-130); Calcium 8.2 mg/dL (7.8-10.44); Carbon Dioxide 26 mmol/L (23-31); Chloride 105 mmol/L (98-107); Estimated GFR-MDRD 35; Glucose 237 mg/dL (83-110); Magnesium 2.3 mg/dL (1.6-2.6); Potassium 3.9 mmol/L (3.5-5.1); Sodium 139 mmol/L (136-145)
[2019-11-12] MEDS: Levothyroxine Sodium 50 MCG TAB PO SCH (05:18)
[2019-11-12] MEDS: HumaLOG 300 UNITS/3 ML VIAL SC PRN ×3 (05:27→20:45)
--- NOTE | 2019-11-12 08:26 | PRG ---
DATE OF SERVICE: 11/10/2019 SUBJECTIVE: Mr. Diaz had a good urine output yesterday, was able to maintain the blood pressure. However, he had a bout of ICU delirium. He required a combination of Haldol and Seroquel overnight about 2:00 a.m., he was finally able to go to sleep. Review of system was not really obtained because he was asleep. His current cardiac medications include carvedilol 12.5 mg twice a day, milrinone 0.25 mcg/kg/min, Zetia 10 mg daily, atorvastatin 80 mg p.o. at bedtime, Bumex 2 mg p.o. b.i.d., aspirin 81 mg daily, Plavix 75 mg daily, Tums also reviewed. He has been in constant atrial fibrillation since admission. He has an average rate about in the low 90s. OBJECTIVE: VITAL SIGNS: Heart rate about 93, blood pressure is 115/67. GENERAL: He is sleepy, but he will wake up and respond to voice correctly. HEENT: EOMI. PERRL. Oropharynx benign with moist mucosa. JVP still elevated about 11 cm. LUNGS: Clear to auscultation bilaterally, this is the best yet. HEART: Irregularly irregular. 2/6 holosystolic murmur in apex with radiation to the left axilla. ABDOMEN: Soft and nontender, much lower now. EXTREMITIES: Lower extremity now has minimal edema. This is greatly improved with positive dorsalis pedis pulses. LABORATORY DATA: His labs were significant for sodium 142, potassium 3.8, BUN 32, creatinine 1.87, this is the best yet for him. However, his BNP still elevated at 1486. ASSESSMENT: A 74-year-old gentleman, likely to reside in [place] Heart Association stage D and [place] Heart Association Class IIIB heart failure with reduced ejection fraction. He has both systolic and diastolic dysfunction. He also has atrial fibrillation. Combination of milrinone and IV diuretics have severely improved the renal function and removed the volume. He is approaching euvolemia today. His atrial fibrillation situation needs to be addressed. If we can convert him back to sinus rhythm, that will really help him in the long run. He also had a bout of ICU psychosis, so this also needs to be addressed. Please see the following for more recommendations. RECOMMENDATIONS: 1. Discontinue Bumex tomorrow morning. 2. Start torsemide 40 mg p.o. daily. He would like to be able to take this at home. 3. Start Entresto combination p.o. b.i.d. 4. Start apixaban which is Eliquis 5 mg p.o. b.i.d. 5. Start risperidone 0.5 mg p.o. at bedtime. This to help with ing. This could be discontinued if he goes home. 6. Please call to ask the to come in to spend some time with him to reorient him. 7. Please provide sitter if possible. 8. Please ask the cardiac rehabilitation to come back to walk him that will help him to reorient him. 9. Please do echocardiogram. 10. I will ask Margarita from [employer] to interrogate to see how long he has been in atrial fibrillation. I will contact Dr. Bardales about converting him to sinus rhythm in the future. Tomorrow, we will likely to start amiodarone. Job ID: [id number] MTDD
[2019-11-12] MEDS ORDERED: Amiodarone 150 MG, Admixture Fee 1 EACH in Dextrose 5% in Water 100 ML IVPB SCH (09:00)
[2019-11-12] MEDS ORDERED: DOBUTamine 500 mg/250 ml 250 ML IVPB SCH (09:00)
--- NOTE | 2019-11-12 09:42 | PDOC.HOSPP ---
- Subjective Encounter Date: 11/12/19 Encounter Time: 09:40 Subjective: Mr. Red was seen today in follow-up of CHF exacerbation. He does not have any complaints. He denies feeling short of breath, and denies any chest pain - Objective Vital Signs & Weight: Vital Signs (12 hours) Temp Pulse Resp Pulse Ox 11/12/19 07:54 91 26 H 100 11/12/19 07:18 98.3 F 11/12/19 04:04 99.2 F 11/12/19 01:55 95 11/11/19 23:51 98.4 F Weight Admit Weight 208 lb 5.389 oz Weight 198 lb 3.129 oz Most Recent Monitor Data Heart Rate from ECG 91 NIBP 86/59 NIBP BP-Mean 68 Respiration from ECG 30 SpO2 100 I&O: 11/11/19 11/12/19 11/13/19 06:59 06:59 06:59 Intake Total 994 1960 Output Total 525 625 Balance 469 1335 Result Diagrams: 11/12/19 03:28 11/12/19 03:28 Additional Labs: Accuchecks 11/12/19 11/11/19 11/11/19 05:29 20:10 16:12 POC Glucose 206 H 222 H 255 H 11/11/19 10:23 POC Glucose 271 H Hospitalist ROS - Medication Medications: Active Medications Generic Name Dose Route Start Last Admin Trade Name Freq PRN Reason Stop Dose Admin Acetaminophen 650 mg 11/07/19 20:27 11/11/19 20:40 Tylenol PO 650 mg Q4H PRN Administration Headache/Fever/Mild Pain (1-3) Albuterol/Ipratropium 3 ml 11/08/19 01:00 11/12/19 07:54 Duoneb NEB 3 ml [id number] ARMOND Administration Apixaban 5 mg 11/10/19 21:00 11/11/19 20:40 Eliquis PO 5 mg BID ARMOND Administration Aspirin 81 mg 11/08/19 09:00 11/11/19 11:08 Aspirin Chewable PO 81 mg DAILY ARMOND Administration Atorvastatin Calcium 80 mg 11/08/19 21:00 11/11/19 20:40 Lipitor PO 80 mg HS ARMOND Administration Carvedilol 12.5 mg 11/08/19 08:00 11/11/19 17:20 Coreg PO 12.5 mg BID-WM ARMOND Administration Clopidogrel Bisulfate 75 mg 11/08/19 09:00 11/11/19 11:07 Plavix PO 75 mg DAILY ARMOND Administration Dextrose/Water 25 gm 11/07/19 22:54 11/10/19 10:55 Dextrose 50% SLOW IVP 25 gm PRN PRN Administration Hypoglycemia Ezetimibe 10 mg 11/08/19 21:00 11/11/19 20:40 Zetia PO 10 mg HS ARMOND Administration Famotidine 20 mg 11/07/19 21:00 11/11/19 20:40 Pepcid PO 20 mg QPM ARMOND Administration Milrinone Lactate 20 mg/ 100 mls @ 0 mls/hr 11/07/19 19:45 11/12/19 03:20 Sodium Chloride IVPB 100 mls INF ARMOND Administration Protocol As Directed Insulin Glargine 8 units/ 0.08 mls @ 0 mls/hr 11/10/19 21:00 11/11/19 20:38 Miscellaneous Medication SC 0.08 mls BID ARMOND Administration Insulin Human Lispro 0 units 11/07/19 22:54 11/12/19 05:27 Humalog SC 3 unit .MILD SLIDING SCALE PRN Administration Mild Correctional Scale Levothyroxine Sodium 50 mcg 11/08/19 06:00 11/12/19 05:18 Synthroid PO 50 mcg 0600 ARMOND Administration Lorazepam 0.5 mg 11/09/19 18:45 11/10/19 02:25 Ativan SLOW IVP 0.5 mg Q6H PRN Administration Anxiety/Agitation Potassium Chloride 10 meq 11/09/19 09:00 11/11/19 20:40 Klor-Con 10 PO 10 meq BID ARMOND Administration Risperidone 0.5 mg 11/10/19 21:00 11/11/19 20:39 Risperidone PO 0.5 mg HS ARMOND Administration Sodium Chloride 10 ml 11/08/19 09:00 11/11/19 20:41 Flush - Normal Saline IVF 10 ml Q12HR ARMOND Administration Torsemide 40 mg 11/11/19 09:00 11/11/19 09:13 Demadex PO Not Given DAILY ARMOND - Exam Eye: PERRL Heart: no murmur, no gallops, no rubs, irregular Respiratory: CTAB (with the occasional rales), no wheezes, no ronchi Gastrointestinal: soft, non-tender, non-distended, normal bowel sounds, no palpable masses, no hepatomegaly Extremities: 1+ LE edema Hosp A/P (1) Acute on chronic systolic heart failure, NYHA class 3 Code(s): I50.23 - ACUTE ON CHRONIC SYSTOLIC (CONGESTIVE) HEART FAILURE Status : Acute (2) DM2 (diabetes mellitus, type 2) Status: Chronic (3) HLD (hyperlipidemia) Code(s): E78.5 - HYPERLIPIDEMIA, UNSPECIFIED Status: Chronic (4) HTN (hypertension) Code(s): I10 - ESSENTIAL (PRIMARY) HYPERTENSION Status: Chronic - Plan * Acute on chronic systolic heart failure- discussed with Dr. Estrada. He will be placed back on the Milrinone drip * He would benefit from this at home- will try to see if his insurance can support this * AFIB- his heart rate is variable- continue Eliquis for CVA prevention * Dementia- stable * HTN- blood pressure is again on the lower side * Acute on chronic kidney injury- this is likely the result of his cardiac disease * DM- his blood glucose is a bit elevated- continue current regimen for now
--- NOTE | 2019-11-12 10:17 | PRG ---
DATE OF SERVICE: 11/12/2019 SUBJECTIVE: Mr. Joe Red had a difficult day. He started the morning with drop in the blood pressure in the low 80s then into the high 70s. At that time , he is little bit volume depleted. He was given 500 mL of normal saline plus 25 g of albumin. His blood pressure did come back up, but varies throughout the day. Entresto was also stopped. He did not complain of any symptoms and he is confused, however, less so today. REVIEW OF SYSTEMS: GENERAL: He denies fever or chills. HEENT: There is no change in vision, hearing, or swallowing. PULMONARY: He does not complain of shortness of breath. However, he does need to sleep with head up. CARDIOVASCULAR: There is no syncope. GI: He is able to eat well. : He seem to be unable to make it to the bathroom. He does wet himself. MUSCULOSKELETAL: He is currently not complaining of joint pains or back pain. INTEGUMENT: He does not complain of new lesions. NEUROLOGIC: He does not have any new focal deficits. PSYCHIATRIC: He is bit confused. PHYSICAL EXAMINATION: VITAL SIGNS: Vitals reviewed. Telemetry shows that he has a variable rhythm from sinus rhythm to what appears to be atrial tachycardia or atrial fibrillation, averages above close to high 90 with a slow at the 80 and high in the 120s. His current blood pressure is about 99/56. There have been dips into the low 80s. GENERAL: He is alert and conversational. HEENT: EOMI. PERRL. His oropharynx is benign with moist mucosa. NECK: His JVP is elevated today about 12 cm with a positive hepatojugular reflux. This is worse than yesterday. LUNGS: He has bilateral crackles in lower 1/3 bases. This is worse than yesterday. HEART: Some regularity and half of irregular rhythm, currently with 2/6 holosystolic murmur at the apex with radiation to the left axilla. ABDOMEN: Soft and nontender. Positive bowel sounds. EXTREMITIES: Lower extremities have pitting edema only about the feet. Tele was reviewed. There was one run of nonsustained VT. Transthoracic echocardiogram was also reviewed. It shows a left ventricular ejection fraction of 10% with moderate mitral regurgitation and there is mild dilation of the right ventricle with low normal to mildly reduced right ventricle function. LABORATORY DATA: Lab values show sodium 139, potassium 3.9, BUN 29, and creatinine had bumped to 2.23. ASSESSMENT: A 74-year-old gentleman who is [place] Heart Association stage D and [place] Heart Association class 3B heart failure with reduced ejection fraction. It is combination of nonischemic cardiomyopathy, followed by anterior myocardial infarction in January 2019. He has taken a turn for the worse yesterday. Eventually, we were able to regain the pressure. At this time, we will need to find a way to keep his atrial tachycardia under relative control. Increase the contractility to provide more perfusion to his renal function, without that, there is no way to diurese. Looking at an echocardiogram and seeing results from last 2 to 3 days, he clearly needs Milrinone to retain function and also to survive. We will initiate process for chronic outpatient milrinone infusion. There is a chance that it may not be possible. We will also need to bring palliative care on board. We will also need to have a family meeting. RECOMMENDATIONS: 1. Add dobutamine at 2.5 mcg/kg/minute IV GTT. 2. Amiodarone 1 mg/minute IV GTT for 6 hours followed by 0.5 mg IV GTT for 18 hours, and then stop. Stop torsemide for now. Lasix at 80 mg IV one dose about noon time after he is able to sustain blood pressure over 95. [address] PICC line. 4. Please have palliative care consult. 5. We will set up a family meeting with . 6. I have contacted the infusion company to see if long-term Milrinone is possible for this patient. Job ID: [id number] MTDD
--- NOTE | 2019-11-12 11:19 | SPC ---
Sonographic guided right upper extremity PICC placement HISTORY: Need for long-term antibiotics. FINDINGS: After explaining the procedure and answering all questions, the right arm was prepped and d raped in usual sterile fashion. Sterile technique, buffered local anesthesia, sonographic guidance, and a 22-gauge needle were used to carefully access the right brachial vein. Standard technique was u sed to place the tip of a 5 Swazi dual-lumen PICC so that the tip lies at the level of the cavoatrial junction. Catheter was flushed and secured externally. Patient tolerated the procedure wel l and was returned in unchanged condition. Fluoroscopy time 0.1 minute. IMPRESSION: Right upper extremity PICC is ready for use.
[2019-11-12] MEDS: Carvedilol 6.25 MG TAB PO SCH ×2 (11:29→17:29)
[2019-11-12] MEDS: Clopidogrel Bisulfate 75 MG TAB PO SCH (11:29)
[2019-11-12] MEDS: Torsemide 20 MG TAB PO SCH (11:29)
[2019-11-12] MEDS: Potassium Chloride 10 MEQ TAB PO SCH ×2 (11:29→20:44)
[2019-11-12] MEDS: Insulin Glargine 8 UNITS in Pre-Filled Syringe SC SCH ×2 (11:30→20:45)
[2019-11-12] MEDS: Aspirin Chewable 81 MG TAB PO SCH (11:30)
[2019-11-12] MEDS: Apixaban 5 MG TAB PO SCH ×2 (11:30→20:44)
[2019-11-12] MEDS: Amiodarone 450 MG, Admixture Fee 1 EACH in Dextrose 5% in Water 250 ML IVPB SCH ×2 (11:31→19:55)
--- NOTE | 2019-11-12 20:00 | PRG ---
DATE OF SERVICE: 11/12/2019 SUBJECTIVE: Joe Red has no complaints. He says he is feeling better. OBJECTIVE: VITAL SIGNS: Heart rate is 85, blood pressure is 104/57, respiratory rate is 20, and oximetry is up to 100% on room air. LUNGS: Clear. HEART: Regular rhythm. ABDOMEN: Soft. LABORATORY DATA: White count 6.3, hemoglobin 9.8, and platelets 155. Sodium 139, potassium 3.9, chloride 105, bicarb 26, BUN 29, and creatinine 2.23. He has a PICC line in place. Echocardiogram showed an ejection fraction of 10%. He appears to be clinically improved. We will review notes over the weekend. Job ID: [id number] MTDD
[2019-11-12] MEDS: Famotidine 20 MG TAB PO SCH (20:44)
[2019-11-12] MEDS: Ezetimibe 10 MG TAB PO SCH (20:44)
[2019-11-12] MEDS: Atorvastatin Calcium 40 MG TAB PO SCH (20:44)
[2019-11-12] MEDS: Acetaminophen 325 MG TAB PO PRN (20:52)
[2019-11-12] MEDS: risperiDONE 0.25 MG TAB PO SCH (20:52)
[2019-11-13 05:01] LABS: #Eosinphils 0.3 thou/uL (0.0-0.7); #Lymphocytes 1.1 thou/uL (1.20-3.40); #Monocytes 0.9 thou/uL (0.11-0.59); #Neutrophils 5.2 thou/uL (1.40-6.50); %Basophils 0.5 % (0.0-1.0); %Eosinophils 3.9 % (0.0-10.0); %Lymphocytes 13.9 % (21.0-51.0); %Monocytes 12.4 % (0.0-10.0); %Neutrophils 69.4 % (42.0-75.0); Hemoglobin 10.3 g/dL (14.0-18.0); Mean Corpuscular HGB CONC 31.4 g/dL (32.0-36.0); Mean Corpuscular Hemoglobin 30.3 pg (27.0-31.0); Mean Corpuscular Volume 96.4 fL (78.0-98.0); Mean Platelet Volume 9.4 fL (7.4-10.4); Platelet Count 180 thou/uL (130-400); RBC Distribution Width 14.9 % (11.5-14.5); White Blood Cell (WBC) Count 7.6 thou/uL (4.8-10.8)
[2019-11-13] MEDS: Levothyroxine Sodium 50 MCG TAB PO SCH (05:13)
[2019-11-13 06:23] LABS: ALT (SGPT) 18 U/L (8-55); AST (SGOT) 25 U/L (5-34); Albumin 2.9 g/dL (3.4-4.8); Alkaline Phosphatase 124 U/L (40-110); Anion Gap 8 mmol/L (10-20); BUN (Urea Nitrogen) 31 mg/dL (8.4-25.7); Bilirubin, Total 1.1 mg/dL (0.2-1.2); Calc. Creatinine Clearance 40 mL/min (70-130); Calcium 8.4 mg/dL (7.8-10.44); Carbon Dioxide 29 mmol/L (23-31); Chloride 104 mmol/L (98-107); Estimated GFR-MDRD 38; Globulin 3.9 g/dL (2.4-3.5); Glucose 137 mg/dL (83-110); Magnesium 2.2 mg/dL (1.6-2.6); Potassium 4.3 mmol/L (3.5-5.1); Protein, Total 6.8 g/dL (5.8-8.1); Sodium 137 mmol/L (136-145)
[2019-11-13] MEDS ORDERED: DOBUTamine 500 mg/250 ml 250 ML IVPB SCH (08:15)
[2019-11-13] MEDS: Carvedilol 6.25 MG TAB PO SCH ×2 (09:10→17:39)
[2019-11-13] MEDS: Insulin Glargine 8 UNITS in Pre-Filled Syringe SC SCH ×2 (09:24→21:06)
[2019-11-13] MEDS: Potassium Chloride 10 MEQ TAB PO SCH ×2 (09:26→21:05)
[2019-11-13] MEDS: Apixaban 5 MG TAB PO SCH (09:26)
[2019-11-13] MEDS: Aspirin Chewable 81 MG TAB PO SCH (09:26)
[2019-11-13] MEDS: Clopidogrel Bisulfate 75 MG TAB PO SCH (09:26)
[2019-11-13] MEDS: Torsemide 20 MG TAB PO SCH (09:27)
--- NOTE | 2019-11-13 09:46 | PRG ---
DATE OF SERVICE: 11/13/2019 This is advanced heart failure consult Cardiology. SUBJECTIVE: Overnight, Mr. Joe Red had a good day. He was able to ambulate. He was able to maintain the blood pressure about 110 mmHg or higher with initiation of dobutamine. He said he felt much energetic and breathing much easier. Amiodarone drip was all also initiated, that quite his ectopy. It was about 100 to 130, now it is raised, average rate down to 78. REVIEW OF SYSTEMS: GENERAL: He denies fever or chills. He is more energetic today. HEENT: There is no change in vision, hearing, or swallowing. PULMONARY: He does not have complaint of shortness of breath. He is sleeping better. CARDIOVASCULAR: There is no syncope. GI: He is eating well. : He said he is able to urinate fine without dysuria, but then he sometimes not able to make it to the bathroom. MUSCULOSKELETAL: He does not complain of joint or back pain. INTEGUMENT: He does complain of new lesions. NEUROLOGIC: He does not have any focal deficits. PSYCHIATRIC: He is not confused. He is much more clear today. PHYSICAL EXAMINATION: VITAL SIGNS: Telemetry was reviewed. Since start of amiodarone, there was no more nonsustained VT. His ectopy also has greatly decreased. He is now having average rate about 78. His current heart rate is 86 and blood pressure 124/76. GENERAL: He is sitting up well, alert, conversational, talkative, eating breakfast hardly. HEENT: Show EOMI, PERRL. Oropharynx benign. There is no erythema. There is moist mucosa. NECK: His JVP is about 11 cm. LUNGS: Good air movement bilaterally. There are bibasilar crackles, better than yesterday. HEART: Mostly regular. There are also some irregular rhythms. He has 2/6 holosystolic murmur at the apex with radiation to left axilla. ABDOMEN: Soft and nontender. Positive bowel sounds. EXTREMITIES: Lower extremity, there is slight pitting edema only at feet. LABORATORY DATA: His current lab values; sodium 137, potassium 4.3, BUN 31, creatinine has improved to 2.07. MEDICATIONS: His current cardiac medications are: 1. Amiodarone drip converting to amiodarone 400 mg p.o. b.i.d. 2. Apixaban 5 mg b.i.d. 3. Dobutamine currently at 2.5 mcg/kg/minute. 4. Carvedilol 12.5 mg p.o. b.i.d. 5. Milrinone currently at 0.25 mcg/kg/minute IV GTT. 6. Zetia at 10 mg p.o. at bedtime. 7. Atorvastatin 80 mg p.o. at bedtime. 8. Aspirin 81 mg daily. 9. Plavix 75 mg daily. 10. Potassium at 10 mEq b.i.d. ASSESSMENT: A 74-year-old gentleman, remains in [place] Heart Association class 3B heart failure with reduced ejection fraction. He has both systolic and diastolic dysfunction. He has baseline nonischemic cardiomyopathy that is compounded by anterior AR in January 2019. It has proven that he needs chronic Milrinone therapy in order to have a good quality of life and survive. Today, he is near euvolemia. We will work towards discharge. Ideally, he could be a good left ventricular assist device candidate; however, it is not sure his family situation can support this, we will explore this. Most importantly, then we will need to work with , infusion company and also home health care to support a home Milrinone. However, he does have renal insufficiency because of the cardiac dysfunction, it is improving. His hypertension is well controlled. 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 Risperidone 0.5 mg at nighttime, it seemed to have also helped. RECOMMENDATIONS: 1. Increase Milrinone to 0.3 mcg/kg/minute. 2. Decrease dobutamine to 1.25 mcg/kg/minute. If he does well tonight, then we will turn off dobutamine. 3. Continue torsemide 40 mg p.o. daily. We need to see if this can keep him slightly negative and steady. We may need to add spironolactone at 25 mg p.o. daily and titrate this to help with a long-term sustainable diuresis and hoping his kidney function would improve a little bit more before we start this. 4. Work with [employer] to make long-term Milrinone possible. 5. Please request his to come in today between 5:30 and 7:00 total family meeting about his overall well-being, long-term plans, and also Milrinone infusion. It has been a pleasure taking care of Mr. Joe Red. If you have any question, please give me a call. Job ID: [id number] [facility]
--- NOTE | 2019-11-13 09:57 | PDOC.PALCO ---
Palliative Care Consult - Consult Details Requesting Physician: Dr Cassidy Reason for Consult: goals of care, family support Family Members Present: None, will return when his Zev arrives - Pertinent HPI 74 year old male with a longstanding history of cardiac disease. Onset of lower extremity edema and shortness of breath over a course "of a few days" as per patient. He presented to the emergency room and admitted to CCU for management of exacerbation of heart failure, atrial fib. - Pertinent PMH Systolic heart failure, atrial fibrillation, DM II, Hypertension, HDL - Social History Smoking Status: Former smoker Smoking: cigarettes Alcohol Use: none Drug Use History: none Living Situation: - Medications MAR Reviewed: Yes - Allergies Allergies/Adverse Reactions: Allergies Allergy/AdvReac Type Severity Reaction Status Date / Time No Known Allergies Allergy Verified 02/08/19 22:58 - Subjective Awake, alert. Denies complaints. - ROS Constitutional: alert, weakness Eyes: other (no vision changes) ENT: other (negative for congestion, difficulity swallowing) Respiratory: shortness of breath with extertion, other (negative for cough, ) Cardiology: other (negative for chest pain, pressure or discomfort) Gastrointestinal: other (Negative for nausea, vomiting, constipation) Genitourinary: other (Negative for frequency, incontinence) Skin: dry - Objective Vital Signs: Vital Signs - Most Recent Temp Pulse Resp BP Pulse Ox 98.0 F 90 22 H 101/62 98 11/13/19 07:09 11/13/19 08:57 11/13/19 08:17 11/13/19 09:10 11/13/19 08:17 Palliative Performance Scale: 40 - Physical Exam Constitutional: confusion HEENT: EOMI, moist MMs, sclera anicteric Respiratory: unlabored breathing Cardiovascular: irregular Gastrointestinal: non-tender, positive bowel sounds Genitourinary: continent Musculoskeletal: pulses present, edema present Skin: cap refill <2 seconds Deviation from normal: dry extremities Psychiatric: A&O x 3 (Mild confusion, delay in memory) - Problem List (1) Palliative care encounter Code(s): Z51.5 - ENCOUNTER FOR PALLIATIVE CARE Current Visit: Yes Status: Acute (2) Physical deconditioning Code(s): R53.81 - OTHER MALAISE Current Visit: Yes Status: Acute (3) Chronic anticoagulation Code(s): Z79.01 - HALFWAY (CURRENT) USE OF ANTICOAGULANTS Current Visit: No Status: Chronic (4) Chronic systolic heart failure, ACC/AHA stage C Code(s): I50.22 - CHRONIC SYSTOLIC (CONGESTIVE) HEART FAILURE Current Visit: No Status: Chronic - Plan/Recommendations Plan:Minimal confusion in conversation, mostly delay in memory that is eventually recalled. Discussed decrease in ability to perform ADL secondary to weakness, shortness of breath with exertion, and weakness. , his had 5 children then after they they had twins who are now 32 years old. States his goal to be at home. Patient states his also cares for her father in their home as well . PT consulted for patient. *Will return to visit with to determine if there are resources that would benefit patient to have a safer transition home *Unsure if patient had home health services in the past or if he had O2 at home , he could not recall, will follow up with his . *May consider Home health that provides strong Cardiac Support such as [facility] or [facility] that can also transition patient to hospice if ever needed with disease trajectory *Reviewed klarissa, will consult Spiritual Care for visit /patient confirmed this was desired [60] minutes spent on this encounter with >50% of the time in counseling and coordination of care. Thank you for this very appropriate consult.
[2019-11-13] MEDS ORDERED: Amiodarone 200 MG TAB PO SCH (10:30)
[2019-11-13] MEDS: HumaLOG 300 UNITS/3 ML VIAL SC PRN ×2 (11:09→16:59)
--- NOTE | 2019-11-13 11:48 | PDOC.HOSPP ---
- Subjective Encounter Date: 11/13/19 Encounter Time: 11:46 Subjective: Mr. Red was seen today in follow-up of CHF exacerbation. He does not have any complaints today. He denies chest pain or shortness of breath. - Objective Vital Signs & Weight: Vital Signs (12 hours) Temp Pulse Pulse Pulse Resp BP BP 11/13/19 11:06 98.4 F 11/13/19 09:10 101/62 11/13/19 08:57 90 75 121/75 11/13/19 08:17 84 22 H 11/13/19 08:00 11/13/19 07:09 98.0 F 11/13/19 03:38 98.2 F BP Pulse Ox 11/13/19 11:06 11/13/19 09:10 11/13/19 08:57 101/62 11/13/19 08:17 98 11/13/19 08:00 100 11/13/19 07:09 11/13/19 03:38 Weight Admit Weight 208 lb 5.389 oz Weight 195 lb 1.745 oz Most Recent Monitor Data Heart Rate from ECG 94 NIBP 119/79 NIBP BP-Mean 92 Respiration from ECG 29 SpO2 97 I&O: 11/12/19 11/13/19 11/14/19 06:59 06:59 06:59 Intake Total 1960 885 120 Output Total 625 970 Balance 1335 -85 120 Result Diagrams: 11/13/19 04:50 11/13/19 05:58 Additional Labs: Accuchecks 11/13/19 11/13/19 11/12/19 10:30 05:53 20:38 POC Glucose 225 H 140 H 266 H 11/12/19 16:56 POC Glucose 398 H Hospitalist ROS - Medication Medications: Active Medications Generic Name Dose Route Start Last Admin Trade Name Freq PRN Reason Stop Dose Admin Acetaminophen 650 mg 11/07/19 20:27 11/12/19 20:52 Tylenol PO 650 mg Q4H PRN Administration Headache/Fever/Mild Pain (1-3) Albuterol/Ipratropium 3 ml 11/08/19 01:00 11/13/19 08:17 Duoneb NEB 3 ml [id number] ARMOND Administration Amiodarone HCl 400 mg 11/13/19 10:30 11/13/19 10:26 Cordarone PO 11/13/19 12:30 400 mg 1030 ARMOND Administration Apixaban 5 mg 11/10/19 21:00 11/13/19 09:26 Eliquis PO 5 mg BID ARMOND Administration Aspirin 81 mg 11/08/19 09:00 11/13/19 09:26 Aspirin Chewable PO 81 mg DAILY ARMOND Administration Atorvastatin Calcium 80 mg 11/08/19 21:00 11/12/19 20:44 Lipitor PO 80 mg HS ARMOND Administration Carvedilol 12.5 mg 11/08/19 08:00 11/13/19 09:10 Coreg PO 12.5 mg BID-WM ARMOND Administration Clopidogrel Bisulfate 75 mg 11/08/19 09:00 11/13/19 09:26 Plavix PO 75 mg DAILY ARMOND Administration Dextrose/Water 25 gm 11/07/19 22:54 11/10/19 10:55 Dextrose 50% SLOW IVP 25 gm PRN PRN Administration Hypoglycemia Ezetimibe 10 mg 11/08/19 21:00 11/12/19 20:44 Zetia PO 10 mg HS ARMOND Administration Famotidine 20 mg 11/07/19 21:00 11/12/19 20:44 Pepcid PO 20 mg QPM ARMOND Administration Insulin Glargine 8 units/ 0.08 mls @ 0 mls/hr 11/10/19 21:00 11/13/19 09:24 Miscellaneous Medication SC 0.08 mls BID ARMOND Administration Milrinone Lactate 20 mg/ 100 mls @ 7.96 mls/hr 11/13/19 08:15 11/13/19 10:23 Sodium Chloride IVPB 100 mls INF ARMOND Administration Protocol 0.3 MCG/KG/MIN Insulin Human Lispro 0 units 11/07/19 22:54 11/13/19 11:09 Humalog SC 3 unit .MILD SLIDING SCALE PRN Administration Mild Correctional Scale Levothyroxine Sodium 50 mcg 11/08/19 06:00 11/13/19 05:13 Synthroid PO 50 mcg 0600 ARMOND Administration Lorazepam 0.5 mg 11/09/19 18:45 11/10/19 02:25 Ativan SLOW IVP 0.5 mg Q6H PRN Administration Anxiety/Agitation Potassium Chloride 10 meq 11/09/19 09:00 11/13/19 09:26 Klor-Con 10 PO 10 meq BID ARMOND Administration Risperidone 0.5 mg 11/10/19 21:00 11/12/19 20:52 Risperidone PO 0.5 mg HS ARMOND Administration Sodium Chloride 10 ml 11/08/19 09:00 11/13/19 09:27 Flush - Normal Saline IVF 10 ml Q12HR ARMOND Administration Torsemide 40 mg 11/13/19 09:00 11/13/19 09:27 Demadex PO 40 mg DAILY ARMOND Administration - Exam Eye: PERRL Heart: RRR, no murmur, no gallops, no rubs, normal peripheral pulses Respiratory: CTAB, no wheezes, no rales, no ronchi, normal chest expansion, no tachypnea, normal percussion Gastrointestinal: soft, non-tender, non-distended, normal bowel sounds, no palpable masses, no hepatomegaly Extremities: 1+ LE edema Hosp A/P (1) Acute on chronic systolic heart failure, NYHA class 3 Code(s): I50.23 - ACUTE ON CHRONIC SYSTOLIC (CONGESTIVE) HEART FAILURE Status : Acute (2) DM2 (diabetes mellitus, type 2) Status: Chronic (3) HLD (hyperlipidemia) Code(s): E78.5 - HYPERLIPIDEMIA, UNSPECIFIED Status: Chronic (4) HTN (hypertension) Code(s): I10 - ESSENTIAL (PRIMARY) HYPERTENSION Status: Chronic - Plan * Acute on chronic systolic heart failure- Continue Dobutamine and Milrinone as per Cardiology * AFIB- his heart rate is variable- continue Eliquis for CVA prevention. His heart rate is stable, and Amiodarone is being transitioned to oral * Dementia- stable * HTN- blood pressure is low normal * Acute on chronic kidney injury- renal function is stable * DM- his blood glucose is a bit labile- continue current regimen as well as SSI
[2019-11-13] MEDS: Famotidine 20 MG TAB PO SCH (21:05)
[2019-11-13] MEDS: Ezetimibe 10 MG TAB PO SCH (21:05)
[2019-11-13] MEDS: Amiodarone 200 MG TAB PO SCH (21:05)
[2019-11-13] MEDS: Atorvastatin Calcium 40 MG TAB PO SCH (21:05)
[2019-11-13] MEDS: risperiDONE 0.25 MG TAB PO SCH (21:06)
[2019-11-14] MEDS: Lorazepam 2 MG/ML VIAL SLOW IVP PRN (01:34)
[2019-11-14 03:40] LABS: #Eosinphils 0.3 thou/uL (0.0-0.7); #Monocytes 0.8 thou/uL (0.11-0.59); #Neutrophils 5.1 thou/uL (1.40-6.50); %Basophils 0.4 % (0.0-1.0); %Eosinophils 4.1 % (0.0-10.0); %Lymphocytes 13.6 % (21.0-51.0); %Monocytes 10.6 % (0.0-10.0); %Neutrophils 71.2 % (42.0-75.0); Hemoglobin 10.5 g/dL (14.0-18.0); Mean Corpuscular HGB CONC 31.9 g/dL (32.0-36.0); Mean Corpuscular Hemoglobin 30.8 pg (27.0-31.0); Mean Corpuscular Volume 96.6 fL (78.0-98.0); Mean Platelet Volume 9.2 fL (7.4-10.4); Platelet Count 183 thou/uL (130-400); RBC Distribution Width 14.9 % (11.5-14.5); Red Blood Cell (RBC) Count 3.42 mill/uL (4.70-6.10); White Blood Cell (WBC) Count 7.2 thou/uL (4.8-10.8)
[2019-11-14 04:06] LABS: Anion Gap 10 mmol/L (10-20); BUN (Urea Nitrogen) 28 mg/dL (8.4-25.7); Calc. Creatinine Clearance 38 mL/min (70-130); Calcium 8.9 mg/dL (7.8-10.44); Carbon Dioxide 31 mmol/L (23-31); Chloride 104 mmol/L (98-107); Estimated GFR-MDRD 37; Glucose 213 mg/dL (83-110); Magnesium 2.3 mg/dL (1.6-2.6); Potassium 4.4 mmol/L (3.5-5.1); Sodium 141 mmol/L (136-145)
[2019-11-14] MEDS: Levothyroxine Sodium 50 MCG TAB PO SCH (06:38)
--- NOTE | 2019-11-14 08:04 | PRG ---
DATE OF SERVICE: 11/13/2019 SUBJECTIVE: Joe Red has no complaints. OBJECTIVE: VITAL SIGNS: He is afebrile, heart rate is 80, respiratory rate is 20, oximetry room air. LUNGS: Clear. HEART: Regular rhythm. ABDOMEN: Soft. LABORATORY DATA: White count 7.6, hemoglobin 10, platelets 180,000. Electrolytes are normal. BUN 31, and creatinine 2.07. IMPRESSION: 1. Volume overload. 2. Chronic kidney disease. 3. Diabetes. 4. . 5. Atrial anticoagulation. 6. Dementia. PLAN: Probably stable to move out of Critical Care Unit . Close to the point where . Job ID: [id number]
[2019-11-14] MEDS: Amiodarone 200 MG TAB PO SCH ×2 (10:05→20:58)
[2019-11-14] MEDS: Carvedilol 6.25 MG TAB PO SCH ×2 (10:05→18:25)
--- NOTE | 2019-11-14 10:10 | PRG ---
DATE OF SERVICE: 11/14/2019 SUBJECTIVE: Mr. Joe Red had a good day. He was able to ambulate. He had a good visit with his . We had a long family meeting last night. Different options were discussed. Due to his mental capacity, the family agree and I also decided that he is not appropriate for left ventricular assist device evaluation or consideration. However, the family did agree and want him to have a longer and high quality of the life. Thus, they would like to proceed with milrinone infusion chronically. They also requested that a PICC line to be moved from the arm to the chest if at all possible. Overnight, he has increasing confusion. Apparently, he received Ativan to put in the sleep early in the morning. When I saw him this morning, he was a bit confused and hard to wake. REVIEW OF SYSTEMS: CONSTITUTIONAL: He denies fever or chills. HEENT: There is no change in vision, hearing, or swallowing. PULMONARY: He does not complain of shortness of breath. CARDIOVASCULAR: There is no palpitation or syncope. GI: He is eating well. He is n.p.o. this morning, but he wants to eat. : He said he is able to urinate. However, he does have accidents during the day. MUSCULOSKELETAL: He denies joint pain or back pain today. INTEGUMENT: There is no new skin breakdown. NEUROLOGIC: He does not have any focal deficit. PSYCHIATRIC: He is confused. He does sundown. He does have a diagnosis of dementia. PHYSICAL EXAMINATION: VITAL SIGNS: Heart rate 86, blood pressure 117/80. GENERAL: He is confused, hard to arouse. Eventually, he woke up. He will converse; however, he cannot really say exactly where he is. He is not oriented. HEENT: Show EOMI, PERRL. Oropharynx is benign. Moist mucosa. NECK: His JVP is about 11 cm. LUNGS: Has good air movement bilaterally. Slight bibasilar crackles. HEART: Regular rhythm with occasional irregularities, 2/6 holosystolic murmur near the apex with radiation to the left axilla. ABDOMEN: Soft and nontender. Positive bowel sounds. EXTREMITIES: Lower extremity has slight pitting edema from the feet to just above the ankles. LABORATORY DATA: Show that his BUN 28, creatinine 2.14, and his bicarb is 31. MEDICATIONS: His current medications now: 1. Amiodarone 400 mg b.i.d. 2. Apixaban 5 mg b.i.d. 3. Dobutamine has been titrated off milrinone at 0.3 mcg/kg/minute. 4. Zetia 10 mg at bedtime. 5. Atorvastatin 80 mg at bedtime. 6. Aspirin 81 mg a day. 7. Plavix 75 mg daily. 8. Also, potassium 10 mEq b.i.d. ASSESSMENT: A 74-year-old gentleman, remains in [place] Heart Association class IIIb heart failure with reduced ejection fraction. He has both systolic and diastolic dysfunction. His baseline nonischemic cardiomyopathy is compounded by anterior myocardial infarction in 12/2018. With ejection fraction of about 10%, he needs milrinone IV chronically to sustain life and provide quality of life. The milrinone is providing enough cardiac output to sustain his daily activity and also perfuse kidneys well enough to sustain diuresis. He does have atrial arrhythmias and also nonsustained ventricular tachycardia. They both have been brought under control with amiodarone. He does have renal insufficiency that is chronic, but it is also a heart-like component. Due to his renal insufficiency, he will be difficult to start spironolactone. It is important to note that past attempts of using Entresto or ACEI-ARB has caused profound drop in blood pressure and worsening renal function. So far, he has not been tolerateting sacubitril/valsartan. He also has not been really tolerating ACEI-ARB. RECOMMENDATIONS: 1. Increase milrinone to 0.375 mcg/kg/minute. 2. This is to compensate for titrating off dobutamine. 3. Add acetazolamide 250 mg p.o. daily. This is to decrease the bicarb content because he is starting to develop contraction alkalosis. 4. Please request PICC line to be moved to the chest, either via [facility] or via [facility]. 5. Increase risperidone to 1 mg each night to help with . 6. Continue to work with cardiac rehab to walk every day, to regain function, and help to orientate him during the day. 7. Work with an infusion company and then home health care to make outpatient milrinone infusion if possible. LVEF of 10%, requiring intermittent dobutamine augmentation, presence of atrial arryhthmia, paraxosymal V-tach, and definite need for chronic milrione showed that the overall prognosis remains poor. It has been a pleasure taking care of Mr. Red. If you have any questions, please give me a call. Job ID: [id number] MTDD
[2019-11-14] MEDS: Torsemide 20 MG TAB PO SCH (11:35)
--- NOTE | 2019-11-14 11:47 | PDOC.HOSPP ---
- Subjective Encounter Date: 11/14/19 Encounter Time: 11:45 Subjective: Mr. Red was seen today in follow-up of CHF exacerbation. He does not have any complaints. - Objective Vital Signs & Weight: Vital Signs (12 hours) Temp Pulse Pulse Resp BP BP Pulse Ox 11/14/19 11:24 97.3 F L 11/14/19 10:05 135/94 H 11/14/19 08:40 92 117/80 11/14/19 08:14 89 20 100 11/14/19 07:38 98.2 F 11/14/19 03:10 98.4 F Weight Admit Weight 208 lb 5.389 oz Weight 195 lb Most Recent Monitor Data Heart Rate from ECG 89 NIBP 117/80 NIBP BP-Mean 92 Respiration from ECG 17 SpO2 98 I&O: 11/13/19 11/14/19 11/15/19 06:59 06:59 06:59 Intake Total 885 972.4 Output Total 970 1175 Balance -85 -202.6 Result Diagrams: 11/14/19 03:27 11/14/19 03:27 Additional Labs: Accuchecks 11/14/19 11/14/19 11/13/19 10:44 06:40 20:01 POC Glucose 189 H 172 H 183 H 11/13/19 16:37 POC Glucose 212 H Hospitalist ROS - Medication Medications: Active Medications Generic Name Dose Route Start Last Admin Trade Name Freq PRN Reason Stop Dose Admin Acetaminophen 650 mg 11/07/19 20:27 11/12/19 20:52 Tylenol PO 650 mg Q4H PRN Administration Headache/Fever/Mild Pain (1-3) Albuterol/Ipratropium 3 ml 11/08/19 01:00 11/14/19 08:14 Duoneb NEB 3 ml [id number] ARMOND Administration Amiodarone HCl 400 mg 11/13/19 21:00 11/14/19 10:05 Cordarone PO 400 mg Q12HR ARMOND Administration Aspirin 81 mg 11/08/19 09:00 11/13/19 09:26 Aspirin Chewable PO 81 mg DAILY ARMOND Administration Atorvastatin Calcium 80 mg 11/08/19 21:00 11/13/19 21:05 Lipitor PO 80 mg HS ARMOND Administration Carvedilol 12.5 mg 11/08/19 08:00 11/14/19 10:05 Coreg PO 12.5 mg BID-WM ARMOND Administration Clopidogrel Bisulfate 75 mg 11/08/19 09:00 11/13/19 09:26 Plavix PO 75 mg DAILY ARMOND Administration Dextrose/Water 25 gm 11/07/19 22:54 11/10/19 10:55 Dextrose 50% SLOW IVP 25 gm PRN PRN Administration Hypoglycemia Ezetimibe 10 mg 11/08/19 21:00 11/13/19 21:05 Zetia PO 10 mg HS ARMOND Administration Famotidine 20 mg 11/07/19 21:00 11/13/19 21:05 Pepcid PO 20 mg QPM ARMOND Administration Insulin Glargine 8 units/ 0.08 mls @ 0 mls/hr 11/10/19 21:00 11/13/19 21:06 Miscellaneous Medication SC 0.08 mls BID ARMOND Administration Milrinone Lactate 20 mg/ 100 mls @ 9.95 mls/hr 11/13/19 08:15 11/13/19 22:39 Sodium Chloride IVPB 100 mls INF ARMOND Administration Protocol 0.375 MCG/KG/MIN Insulin Human Lispro 0 units 11/07/19 22:54 11/13/19 16:59 Humalog SC 3 unit .MILD SLIDING SCALE PRN Administration Mild Correctional Scale Levothyroxine Sodium 50 mcg 11/08/19 06:00 11/14/19 06:38 Synthroid PO 50 mcg 0600 ARMOND Administration Lorazepam 0.5 mg 11/09/19 18:45 11/14/19 01:34 Ativan SLOW IVP 0.5 mg Q6H PRN Administration Anxiety/Agitation Potassium Chloride 10 meq 11/09/19 09:00 11/13/19 21:05 Klor-Con 10 PO 10 meq BID ARMOND Administration Sodium Chloride 10 ml 11/08/19 09:00 11/13/19 21:07 Flush - Normal Saline IVF 10 ml Q12HR ARMOND Administration Torsemide 40 mg 11/13/19 09:00 11/14/19 11:35 Demadex PO 40 mg DAILY ARMOND Administration - Exam Eye: PERRL Heart: RRR, no murmur, no gallops, no rubs, normal peripheral pulses Respiratory: CTAB (with exception of a few rales at the bases) Gastrointestinal: soft, non-tender, non-distended, normal bowel sounds, no palpable masses, no hepatomegaly Extremities: no cyanosis, 1+ LE edema Hosp A/P (1) Acute on chronic systolic heart failure, NYHA class 3 Code(s): I50.23 - ACUTE ON CHRONIC SYSTOLIC (CONGESTIVE) HEART FAILURE Status : Acute (2) DM2 (diabetes mellitus, type 2) Status: Chronic (3) HLD (hyperlipidemia) Code(s): E78.5 - HYPERLIPIDEMIA, UNSPECIFIED Status: Chronic (4) HTN (hypertension) Code(s): I10 - ESSENTIAL (PRIMARY) HYPERTENSION Status: Chronic - Plan * Acute on chronic systolic heart failure- continue Milrinone and Torsemide-and carvediolol * Discussed with Dr. Estrada- he declined LVAD, but was agreeable to outpatient Milrinone, and his insurance will support this * * AFIB- his heart rate is stable overall- continue Amiodarone, and Eliquis for CVA prevention * Dementia- he has been reported to have episodes of confusion, and mild agitation- will add prn Haldol , as it is reported that Ativan made him a bit worse * HTN- blood pressure is stable * Acute on chronic kidney injury-stable * DM- his blood glucose is a bit labile- continue current regimen as well as SSI
[2019-11-14] MEDS ORDERED: Haloperidol 1 MG TAB PO PRN (11:50)
[2019-11-14] MEDS: Insulin Glargine 8 UNITS in Pre-Filled Syringe SC SCH ×2 (17:22→21:28)
[2019-11-14] MEDS: Clopidogrel Bisulfate 75 MG TAB PO SCH (17:22)
[2019-11-14] MEDS: Aspirin Chewable 81 MG TAB PO SCH (17:22)
[2019-11-14] MEDS: Potassium Chloride 10 MEQ TAB PO SCH ×2 (18:25→20:59)
[2019-11-14] MEDS: Ezetimibe 10 MG TAB PO SCH (20:58)
[2019-11-14] MEDS: Atorvastatin Calcium 40 MG TAB PO SCH (20:58)
[2019-11-14] MEDS: risperiDONE 1 MG TAB PO SCH (20:59)
[2019-11-14] MEDS: Famotidine 20 MG TAB PO SCH (20:59)
[2019-11-15 03:53] LABS: #Eosinphils 0.3 thou/uL (0.0-0.7); #Lymphocytes 1.1 thou/uL (1.20-3.40); #Monocytes 0.8 thou/uL (0.11-0.59); #Neutrophils 4.7 thou/uL (1.40-6.50); %Basophils 0.6 % (0.0-1.0); %Eosinophils 3.7 % (0.0-10.0); %Lymphocytes 15.9 % (21.0-51.0); %Monocytes 11.3 % (0.0-10.0); %Neutrophils 68.4 % (42.0-75.0); Hemoglobin 9.9 g/dL (14.0-18.0); Mean Corpuscular HGB CONC 31.7 g/dL (32.0-36.0); Mean Corpuscular Hemoglobin 30.4 pg (27.0-31.0); Mean Corpuscular Volume 96.1 fL (78.0-98.0); Mean Platelet Volume 9.3 fL (7.4-10.4); Platelet Count 194 thou/uL (130-400); RBC Distribution Width 14.9 % (11.5-14.5); Red Blood Cell (RBC) Count 3.25 mill/uL (4.70-6.10); White Blood Cell (WBC) Count 6.8 thou/uL (4.8-10.8)
[2019-11-15 04:25] LABS: Anion Gap 10 mmol/L (10-20); BUN (Urea Nitrogen) 27 mg/dL (8.4-25.7); Calc. Creatinine Clearance 44 mL/min (70-130); Calcium 8.8 mg/dL (7.8-10.44); Carbon Dioxide 28 mmol/L (23-31); Chloride 105 mmol/L (98-107); Estimated GFR-MDRD 44; Glucose 195 mg/dL (83-110); Magnesium 2.2 mg/dL (1.6-2.6); Potassium 4.1 mmol/L (3.5-5.1); Sodium 139 mmol/L (136-145)
[2019-11-15] MEDS: Levothyroxine Sodium 50 MCG TAB PO SCH (07:12)
--- NOTE | 2019-11-15 09:08 | PRG ---
DATE OF SERVICE: 11/15/2019 SUBJECTIVE: Mr. Diaz had an up and down today. He is more alert now. However , he did pull out his PICC. It was replaced with a peripheral IV. His is very concerned about this. She believes that she may not be able to take care of him at home and then if he pulls out IV at home that will be a problem. Perhaps they were thinking about hospice. A long discussion took place this morning between myself, Mr. Red and his , Zev Red. Overall agreement is that we will give him another trial of PICC. If he is able to not pull the line, then he will go home with milrinone. Mr. Red stated clearly that he wanted to live as long as possible. He is not ready to go on hospice. Now, he understands that he will have to keep the PICC in place. We will see on this PICC trial if he can really do that or not. REVIEW OF SYSTEMS: GENERAL: He denies fever or chills. HEENT: There is no change in vision, hearing, or swallowing. PULMONARY: He did not complain of shortness of breath. CARDIOVASCULAR: He did not complain of syncope or palpitation. GI: He is eating well. : He is able to urinate. MUSCULOSKELETAL: He has chronic back pain, but then he has not complained of that right now. INTEGUMENT: There are no new skin lesions. NEUROLOGIC: He does not have any focal deficits. PSYCHIATRIC: He has bouts of confusion to this morning. He is quite clear and expressed good understanding. Apparently, his mental status seemed to correspond to his cardiac status too. When his cardiac status is good, his mental status is also better. PHYSICAL EXAMINATION: VITAL SIGNS: Heart rate 73, blood pressure 106/61. Review of the telemetry show that he is in variable atrial arrhythmia with after 81 there is no ventricular tachycardia at this time around. GENERAL: He is alert and conversational, seemed to be able to answer questions correctly and making choices as well as logic. HEENT: Show EOMI. PERRL. His oropharynx is benign with moist mucosa. NECK: JVP was about 11 cm with positive hepatojugular reflux, this is not a change from yesterday. LUNGS: He has good air movement bilaterally. However, he still have bibasilar crackles more prominent on the left, that has not changed from yesterday. HEART: Regular rhythm and also irregular rhythm. He switches between a regular rhythm and irregular rhythm, there is 2/6 holosystolic murmur near the apex with radiation to the left axilla. ABDOMEN: Soft, nontender. Positive bowel sounds. EXTREMITIES: Lower extremities have pitting edema from feet to just above the ankle. This has greatly reduced from admission, but is stable for the last day or 2. His net I/O is documented about net 200 mL, so basically he is keeping even. His kidney function has improved. Now his creatinine is at 1.85 ASSESSMENT: A 74-year-old gentleman, remains in [place] Heart [employer] class 3B heart failure with reduced ejection fraction. He has both systolic and diastolic dysfunctions. His baseline nonischemic cardiomyopathy is compounded with anterior myocardial infarction in January 2019 produced this severe heart failure. It has now proven that he needs a higher dose of milrinone 0.375 mcg/kg/min. He is currently keeping even is euvolemic as he could be. At this point, we will not risk to increase the diuresis, but maintained his status. His willingness at his mental status remains in question. It is reasonable if he cannot keep the line intact or his cannot handle him at home, may be the only option is hospice. However, him and his have decided and agreed to another trial of PICC even to keep that in his arm for next 2 to 3 days. He will go home on a chronic milrinone drip. If not, he will go on hospice. RECOMMENDATIONS: 1. Continue milrinone 0.375 mcg/kg/min and spironolactone at 12.5 mg daily. This might help diurese a little bit more. Tomorrow, if the creatinine hold, we will increase to 25 [address] PICC line. 3. We will coordinate with palliative care in upcoming days. If he keeps the line in place for 2 to 3 days, then he will be able to go home on Tuesday with milrinone. If he does not, then he will need to be transitioned to a hospice care. It has been a pleasure taking care of Mr. Red. If you have any questions, please give me a call. Job ID: [id number] [facility]
[2019-11-15] MEDS: Torsemide 20 MG TAB PO SCH (09:47)
[2019-11-15] MEDS: Insulin Glargine 8 UNITS in Pre-Filled Syringe SC SCH ×2 (09:47→20:26)
[2019-11-15] MEDS: Amiodarone 200 MG TAB PO SCH ×2 (09:48→20:26)
[2019-11-15] MEDS: Potassium Chloride 10 MEQ TAB PO SCH ×2 (09:48→20:26)
[2019-11-15] MEDS: Carvedilol 6.25 MG TAB PO SCH ×2 (09:48→17:59)
[2019-11-15] MEDS: AcetaZOLAMIDE 250 MG TAB PO SCH (09:49)
[2019-11-15] MEDS: Spironolactone 25 MG TAB PO SCH (09:49)
[2019-11-15] MEDS: Aspirin Chewable 81 MG TAB PO SCH (09:54)
[2019-11-15] MEDS: Clopidogrel Bisulfate 75 MG TAB PO SCH (09:55)
--- NOTE | 2019-11-15 10:44 | PDOC.HOSPP ---
- Subjective Encounter Date: 11/15/19 Encounter Time: 10:42 Subjective: Mr. Red was seen today in follow-up of CHF exacerbation. He denies chest pain or dyspnea. - Objective Vital Signs & Weight: Vital Signs (12 hours) Temp Pulse Resp BP Pulse Ox 11/15/19 09:48 117/70 11/15/19 08:10 98.4 F 11/15/19 08:05 77 15 100 11/15/19 08:00 100 11/15/19 03:53 98.5 F 11/14/19 23:40 98.0 F 11/14/19 23:35 137 H 22 H 94 L Weight Admit Weight 208 lb 5.389 oz Weight 196 lb 12.8 oz Most Recent Monitor Data Heart Rate from ECG 89 NIBP 116/67 NIBP BP-Mean 83 Respiration from ECG 17 SpO2 100 I&O: 11/14/19 11/15/19 11/16/19 06:59 06:59 06:59 Intake Total 972.4 682 Output Total 1175 850 Balance -202.6 -168 Result Diagrams: 11/15/19 03:27 11/15/19 03:27 Additional Labs: Accuchecks 11/15/19 11/14/19 11/14/19 05:59 19:52 16:47 POC Glucose 184 H 160 H 137 H 11/14/19 10:44 POC Glucose 189 H Hospitalist ROS - Medication Medications: Active Medications Generic Name Dose Route Start Last Admin Trade Name Freq PRN Reason Stop Dose Admin Acetaminophen 650 mg 11/07/19 20:27 11/12/19 20:52 Tylenol PO 650 mg Q4H PRN Administration Headache/Fever/Mild Pain (1-3) Acetazolamide 250 mg 11/15/19 09:00 11/15/19 09:49 Diamox PO 250 mg DAILY ARMOND Administration Albuterol/Ipratropium 3 ml 11/08/19 01:00 11/15/19 08:05 Duoneb NEB 3 ml [id number] ARMOND Administration Amiodarone HCl 400 mg 11/13/19 21:00 11/15/19 09:48 Cordarone PO 400 mg Q12HR ARMOND Administration Aspirin 81 mg 11/08/19 09:00 11/15/19 09:54 Aspirin Chewable PO Not Given DAILY ARMOND Atorvastatin Calcium 80 mg 11/08/19 21:00 11/14/19 20:58 Lipitor PO 80 mg HS ARMOND Administration Carvedilol 12.5 mg 11/08/19 08:00 11/15/19 09:48 Coreg PO 12.5 mg BID-WM ARMOND Administration Clopidogrel Bisulfate 75 mg 11/08/19 09:00 11/15/19 09:55 Plavix PO Not Given DAILY ARMOND Dextrose/Water 25 gm 11/07/19 22:54 11/10/19 10:55 Dextrose 50% SLOW IVP 25 gm PRN PRN Administration Hypoglycemia Ezetimibe 10 mg 11/08/19 21:00 11/14/19 20:58 Zetia PO 10 mg HS ARMOND Administration Famotidine 20 mg 11/07/19 21:00 11/14/19 20:59 Pepcid PO 20 mg QPM ARMOND Administration Insulin Glargine 8 units/ 0.08 mls @ 0 mls/hr 11/10/19 21:00 11/15/19 09:47 Miscellaneous Medication SC 0.08 mls BID ARMOND Administration Milrinone Lactate 20 mg/ 100 mls @ 9.95 mls/hr 11/13/19 08:15 11/15/19 07:11 Sodium Chloride IVPB 100 mls INF ARMOND Administration Protocol 0.375 MCG/KG/MIN Insulin Human Lispro 0 units 11/07/19 22:54 11/13/19 16:59 Humalog SC 3 unit .MILD SLIDING SCALE PRN Administration Mild Correctional Scale Levothyroxine Sodium 50 mcg 11/08/19 06:00 11/15/19 07:12 Synthroid PO 50 mcg 0600 ARMOND Administration Lorazepam 0.5 mg 11/09/19 18:45 11/14/19 01:34 Ativan SLOW IVP 0.5 mg Q6H PRN Administration Anxiety/Agitation Potassium Chloride 10 meq 11/09/19 09:00 11/15/19 09:48 Klor-Con 10 PO 10 meq BID ARMOND Administration Risperidone 1 mg 11/14/19 21:00 11/14/19 20:59 Risperidone PO 1 mg HS ARMOND Administration Sodium Chloride 10 ml 11/08/19 09:00 11/15/19 09:50 Flush - Normal Saline IVF 10 ml Q12HR ARMOND Administration Spironolactone 12.5 mg 11/15/19 09:00 11/15/19 09:49 Aldactone PO 12.5 mg DAILY ARMOND Administration Torsemide 40 mg 11/13/19 09:00 11/15/19 09:47 Demadex PO 40 mg DAILY ARMOND Administration - Exam Eye: PERRL Heart: RRR, no murmur, no gallops, no rubs, normal peripheral pulses Respiratory: CTAB, no rales, no ronchi, normal chest expansion, rales Gastrointestinal: soft, non-tender, non-distended, normal bowel sounds, no palpable masses Extremities: no cyanosis, 1+ LE edema Hosp A/P (1) Acute on chronic systolic heart failure, NYHA class 3 Code(s): I50.23 - ACUTE ON CHRONIC SYSTOLIC (CONGESTIVE) HEART FAILURE Status : Acute (2) DM2 (diabetes mellitus, type 2) Status: Chronic (3) HLD (hyperlipidemia) Code(s): E78.5 - HYPERLIPIDEMIA, UNSPECIFIED Status: Chronic (4) HTN (hypertension) Code(s): I10 - ESSENTIAL (PRIMARY) HYPERTENSION Status: Chronic - Plan * Acute on chronic systolic heart failure- continue Milrinone and Torsemide-and carvediolol * He removed his Picc line- he tells me it was accidental- plan is to replace * AFIB- his heart rate is stable overall- continue Amiodarone, and Eliquis for CVA prevention * Dementia- stable * HTN- blood pressure is stable * Acute on chronic kidney injury- GFR improved * DM- his blood glucose is stable
[2019-11-15] MEDS: HumaLOG 300 UNITS/3 ML VIAL SC PRN ×2 (11:25→16:45)
--- NOTE | 2019-11-15 14:27 | PDOC.PALPN ---
Palliative Progress Note - Subjective Awake, alert. Denies any chest pain, palpitations, shortness of breath. Mild weakness - Objective Vital Signs: Vital Signs - Most Recent Temp Pulse Resp BP Pulse Ox 98.2 F 91 14 117/70 99 11/15/19 11:30 11/15/19 14:00 11/15/19 14:00 11/15/19 09:48 11/15/19 14:00 - Physical Exam Constitutional: NAD HEENT: EOMI, moist MMs, sclera anicteric Respiratory: clear to auscultation bilateral, no rales, no rhonchi, no wheezing , unlabored breathing Cardiovascular: no significant murmur, RRR Gastrointestinal: continent, non-tender, no distention, positive bowel sounds Genitourinary: continent Musculoskeletal: no cyanosis, edema present Neurology: moves all 4 limbs, normal sensation Skin: cap refill <2 seconds, normal turgor Psychiatric: A&O x 3 (Intermittant confusion ) - Assessment (1) Palliative care encounter Code(s): Z51.5 - ENCOUNTER FOR PALLIATIVE CARE Current Visit: Yes Status: Acute (2) Physical deconditioning Code(s): R53.81 - OTHER MALAISE Current Visit: Yes Status: Acute (3) Chronic anticoagulation Code(s): Z79.01 - [facility]FP (CURRENT) USE OF ANTICOAGULANTS Current Visit: No Status: Chronic (4) Chronic systolic heart failure, ACC/AHA stage C Code(s): I50.22 - CHRONIC SYSTOLIC (CONGESTIVE) HEART FAILURE Current Visit: No Status: Chronic - Plan Plan: Patinet to have a PICC place, he was confused and accidentally removed his previous IV. If patient is able to keep picc over weekend will discharge home with Home health and milrinone drip, if he does not tolerate or it is accidentally pulled patient will return home under hospice care. *will add ducolax for constipation *Spiritual care arrived to provide emotional support for patient [40] minutes spent on this encounter with >50% of the time in counseling and coordination of care. - ROS Constitutional: alert, weakness Eyes: other (Denies visiual changes) ENT: other (denies difficulity swallowing or congestion) Respiratory: other (Denies cough) Cardiology: other Gastrointestinal: constipation
--- NOTE | 2019-11-15 15:35 | SPC ---
SPC CVP LINE PICC INITIAL >5: 11/15/2019 12:00 AM PROCEDURE: Peripherally placed 43 cm single lumen PICC line. PICC Line Placement: The right arm was prepped and draped in sterile fashion. One percent lidocaine was used for local anesthetic. Under fluoroscopic and ultrasound guidance, the right brachial vein was patent and accessed with a mi cropuncture needle. A guide wire was then advanced into the right brachial vein. A vascular sheath was then advanced over a guide wire, and a single lumen PICC line was trimmed. The PICC line was then advanced into the central venous system. A final placement film demonstrates the tip of the catheter terminated in the caval-atrial junction. After confirmation of the catheter position, the catheter was sutured in place at the skin entry site . There was no immediate complication. Total fluoroscopic time 0.5 minutes. Total exposure 1979 mgray/sq cm IMPRESSION: Peripheral placement of a single lumen power PICC line into the right brachial vein using fluoroscopi c and ultrasound guidance.
[2019-11-15] MEDS: Ezetimibe 10 MG TAB PO SCH (20:26)
[2019-11-15] MEDS: Famotidine 20 MG TAB PO SCH (20:26)
[2019-11-15] MEDS: Atorvastatin Calcium 40 MG TAB PO SCH (20:26)
[2019-11-15] MEDS: risperiDONE 1 MG TAB PO SCH (20:27)
[2019-11-16 04:31] LABS: Anion Gap 8 mmol/L (10-20); BUN (Urea Nitrogen) 32 mg/dL (8.4-25.7); Calc. Creatinine Clearance 37 mL/min (70-130); Calcium 8.7 mg/dL (7.8-10.44); Carbon Dioxide 30 mmol/L (23-31); Chloride 106 mmol/L (98-107); Estimated GFR-MDRD 34; Glucose 229 mg/dL (83-110); Magnesium 2.4 mg/dL (1.6-2.6); Potassium 4.2 mmol/L (3.5-5.1); Sodium 140 mmol/L (136-145)
[2019-11-16] MEDS: HumaLOG 300 UNITS/3 ML VIAL SC PRN ×3 (05:59→20:39)
[2019-11-16] MEDS: Levothyroxine Sodium 50 MCG TAB PO SCH (05:59)
[2019-11-16 06:24] LABS: #Eosinphils 0.2 thou/uL (0.0-0.7); #Monocytes 0.9 thou/uL (0.11-0.59); #Neutrophils 4.3 thou/uL (1.40-6.50); %Basophils 0.3 % (0.0-1.0); %Eosinophils 3.7 % (0.0-10.0); %Lymphocytes 15.7 % (21.0-51.0); %Monocytes 13.7 % (0.0-10.0); %Neutrophils 66.6 % (42.0-75.0); Hemoglobin 9.5 g/dL (14.0-18.0); Mean Corpuscular HGB CONC 31.8 g/dL (32.0-36.0); Mean Corpuscular Hemoglobin 30.5 pg (27.0-31.0); Mean Corpuscular Volume 95.8 fL (78.0-98.0); Mean Platelet Volume 9.3 fL (7.4-10.4); Platelet Count 203 thou/uL (130-400); RBC Distribution Width 14.8 % (11.5-14.5); Red Blood Cell (RBC) Count 3.12 mill/uL (4.70-6.10); White Blood Cell (WBC) Count 6.4 thou/uL (4.8-10.8)
--- NOTE | 2019-11-16 08:28 | PDOC.HOSPP ---
- Subjective Encounter Date: 11/16/19 Encounter Time: 08:26 Subjective: Mr. Red was seen today in follow-up of CHF. He does not have any complaints. - Objective Vital Signs & Weight: Vital Signs (12 hours) Temp Pulse Resp BP Pulse Ox 11/16/19 08:00 100 11/16/19 07:46 89 24 H 100 11/16/19 07:11 98.0 F 11/16/19 03:46 98.1 F 11/16/19 00:19 91 23 H 100 11/15/19 23:58 97.8 F 11/15/19 23:00 89 19 96/56 L 99 Weight Admit Weight 208 lb 5.389 oz Weight 189 lb 14.4 oz Most Recent Monitor Data Heart Rate from ECG 88 NIBP 110/71 NIBP BP-Mean 84 Respiration from ECG 20 SpO2 100 I&O: 11/15/19 11/16/19 11/17/19 06:59 06:59 06:59 Intake Total 682 592.9 Output Total 850 1050 Balance -168 -457.1 Result Diagrams: 11/16/19 05:47 11/16/19 04:00 Additional Labs: Accuchecks 11/16/19 11/15/19 11/15/19 05:31 23:45 20:07 POC Glucose 188 H 208 H 221 H 11/15/19 11/15/19 16:36 10:35 POC Glucose 199 H 192 H Hospitalist ROS - Medication Medications: Active Medications Generic Name Dose Route Start Last Admin Trade Name Freq PRN Reason Stop Dose Admin Acetaminophen 650 mg 11/07/19 20:27 11/12/19 20:52 Tylenol PO 650 mg Q4H PRN Administration Headache/Fever/Mild Pain (1-3) Acetazolamide 250 mg 11/15/19 09:00 11/15/19 09:49 Diamox PO 250 mg DAILY ARMOND Administration Albuterol/Ipratropium 3 ml 11/08/19 01:00 11/16/19 07:46 Duoneb NEB 3 ml [id number] ARMOND Administration Amiodarone HCl 400 mg 11/13/19 21:00 11/15/19 20:26 Cordarone PO 400 mg Q12HR ARMOND Administration Aspirin 81 mg 11/08/19 09:00 11/15/19 09:54 Aspirin Chewable PO Not Given DAILY ARMOND Atorvastatin Calcium 80 mg 11/08/19 21:00 11/15/19 20:26 Lipitor PO 80 mg HS ARMOND Administration Carvedilol 12.5 mg 11/08/19 08:00 11/15/19 17:59 Coreg PO Not Given BID-WM ARMOND Clopidogrel Bisulfate 75 mg 11/08/19 09:00 11/15/19 09:55 Plavix PO Not Given DAILY [facility] Dextrose/Water 25 gm 11/07/19 22:54 11/10/19 10:55 Dextrose 50% SLOW IVP 25 gm PRN PRN Administration Hypoglycemia Ezetimibe 10 mg 11/08/19 21:00 11/15/19 20:26 Zetia PO 10 mg HS ARMOND Administration Famotidine 20 mg 11/07/19 21:00 11/15/19 20:26 Pepcid PO 20 mg QPM ARMOND Administration Insulin Glargine 8 units/ 0.08 mls @ 0 mls/hr 11/10/19 21:00 11/15/19 20:26 Miscellaneous Medication SC 0.08 mls BID ARMOND Administration Milrinone Lactate 20 mg/ 100 mls @ 9.95 mls/hr 11/13/19 08:15 11/16/19 03:42 Sodium Chloride IVPB 100 mls INF ARMOND Administration Protocol 0.375 MCG/KG/MIN Insulin Human Lispro 0 units 11/07/19 22:54 11/16/19 05:59 Humalog SC 2 unit .MILD SLIDING SCALE PRN Administration Mild Correctional Scale Levothyroxine Sodium 50 mcg 11/08/19 06:00 11/16/19 05:59 Synthroid PO 50 mcg 0600 ARMOND Administration Lorazepam 0.5 mg 11/09/19 18:45 11/14/19 01:34 Ativan SLOW IVP 0.5 mg Q6H PRN Administration Anxiety/Agitation Potassium Chloride 10 meq 11/09/19 09:00 11/15/19 20:26 Klor-Con 10 PO 10 meq BID ARMOND Administration Risperidone 1 mg 11/14/19 21:00 11/15/19 20:27 Risperidone PO 1 mg HS ARMOND Administration Sodium Chloride 10 ml 11/08/19 09:00 11/15/19 20:27 Flush - Normal Saline IVF 10 ml Q12HR ARMOND Administration Spironolactone 12.5 mg 11/15/19 09:00 11/15/19 09:49 Aldactone PO 12.5 mg DAILY ARMOND Administration Torsemide 40 mg 11/13/19 09:00 11/15/19 09:47 Demadex PO 40 mg DAILY ARMOND Administration - Exam Eye: PERRL Heart: RRR, no murmur, no gallops, no rubs, normal peripheral pulses Respiratory: CTAB (except rales at the bases) Gastrointestinal: soft, non-tender, non-distended, normal bowel sounds, no palpable masses, no hepatomegaly, no splenomegaly Extremities: no cyanosis, no clubbing, 1+ LE edema Hosp A/P (1) Acute on chronic systolic heart failure, NYHA class 3 Code(s): I50.23 - ACUTE ON CHRONIC SYSTOLIC (CONGESTIVE) HEART FAILURE Status : Acute (2) DM2 (diabetes mellitus, type 2) Status: Chronic (3) HLD (hyperlipidemia) Code(s): E78.5 - HYPERLIPIDEMIA, UNSPECIFIED Status: Chronic (4) HTN (hypertension) Code(s): I10 - ESSENTIAL (PRIMARY) HYPERTENSION Status: Chronic - Plan * Acute on chronic systolic heart failure- continue Milrinone and Torsemide-and carvediolol * PICC line has been replaced * AFIB- his heart rate is stable overall- continue Amiodarone, and Eliquis for CVA prevention * Dementia- stable * HTN- blood pressure is stable * Acute on chronic kidney injury- he was started back on spironolactone, and his creatinine sweetie- discussed with - this will be held, and consider IV Lasix tomorrow * DM- his blood glucose is stable * Plan is to go home on IV Milrinone on Tuesday
[2019-11-16] MEDS: Carvedilol 6.25 MG TAB PO SCH ×2 (09:57→17:03)
[2019-11-16] MEDS: Insulin Glargine 8 UNITS in Pre-Filled Syringe SC SCH ×2 (09:57→20:39)
[2019-11-16] MEDS: Amiodarone 200 MG TAB PO SCH ×2 (09:57→20:40)
[2019-11-16] MEDS: AcetaZOLAMIDE 250 MG TAB PO SCH (09:57)
[2019-11-16] MEDS: Aspirin Chewable 81 MG TAB PO SCH (09:57)
[2019-11-16] MEDS: Potassium Chloride 10 MEQ TAB PO SCH ×2 (09:58→20:41)
[2019-11-16] MEDS: Clopidogrel Bisulfate 75 MG TAB PO SCH (09:58)
[2019-11-16] MEDS: Bisacodyl 5 MG TAB PO SCH (09:58)
[2019-11-16] MEDS: Torsemide 20 MG TAB PO SCH (09:58)
[2019-11-16] MEDS: Spironolactone 25 MG TAB PO SCH (09:59)
[2019-11-16] MEDS: Acetaminophen 325 MG TAB PO PRN (10:02)
--- NOTE | 2019-11-16 15:47 | PRG ---
DATE OF SERVICE: 11/16/2019 SUBJECTIVE: Mr. Red had an uneventful day. He received a PICC line in the right arm. He was able to keep it in place. He did not complain and did not pull the line out. He said that he is feeling well. He said that he will comply with keeping his PICC line in place. REVIEW OF SYSTEMS: GENERAL: There is no fever or chills. HEENT: There is no changing in hearing, swallowing, or vision. He does have a chronic hard of hearing. PULMONARY: He said he is not short of breath. CARDIOVASCULAR: He denied palpitations or syncope. GI: He is eating well. Today, he is not complaining of bowel problems. : He is able to urinate on his own, but sometimes, he can have accidents. MUSCULOSKELETAL: He has chronic joint pains, but he is not complaining of that. INTEGUMENT: There are no new skin lesions. NEUROLOGIC: There are no focal deficits or weaknesses. OBJECTIVE: VITAL SIGNS: His telemetry was reviewed. He has a combination of sinus rhythm and also atrial arrhythmia. His average rate is at 87. His current vitals are blood pressure 106/64, oxygen saturation 100%. GENERAL: He is alert and conversational and is able to answer questions correctly. HEENT: EOMI. PERRL. His oropharynx is benign with moist mucosa without erythema. NECK: JVP remains about 11 cm with positive hepatojugular reflux. LUNGS: He has a good air movement bilaterally in the upper one-half of lung [place]; however, he still has bibasilar crackles on the lower one-quarter, more prominent on the left. HEART: Regular rhythm and sometimes irregularity. He has 2/6 holosystolic murmur at the apex with radiation to the left axilla. ABDOMEN: Soft and nontender. There are positive bowel sounds. EXTREMITIES: Lower extremities have pitting edema from feet to ankles, that is 1+. His net I/O is negative 457 mL. SIGNIFICANT LABORATORY VALUES: Sodium 140, potassium 4.2, BUN 32, creatinine 2.27, and glucose 229. 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 He has both systolic and diastolic dysfunction. Baseline nonischemic cardiomyopathy and also anterior myocardial infarction in January 2019, caused this severe heart failure. Addition of half dose spironolactone caused surprising amount of additional urine output and caused a bump in the creatinine. Thus, we need to tailor this back. We will continue a 2-day trial to see if he can keep his PICC in place. If he is able to keep his PICC in place, then we will discharge to outpatient with chronic milrinone infusion, target day is November 19. However, if he pulls all his line, then this would not be possible, and in that case, the family has chosen hospice if he cannot keep the line on his own. RECOMMENDATIONS: 1. Continue milrinone 0.375 mcg/kg/minute. 2. Stop spironolactone. 3. If he still has volume up tomorrow, then we will use IV Lasix to dry him as much as possible for full 1 day, but today, we want him to recover some renal function. 4. Complete a 3-day trial to see if he is able to maintain his PICC. It is anticipated if everything works well, then he will be discharged to outpatient with chronic milrinone infusion. It has been a pleasure taking care of Mr. Red. If you have any questions, please give me a call. Job ID: [id number] [facility]
[2019-11-16] MEDS: Apixaban 5 MG TAB PO SCH ×2 (16:08→20:40)
[2019-11-16] MEDS: risperiDONE 1 MG TAB PO SCH (20:40)
[2019-11-16] MEDS: Ezetimibe 10 MG TAB PO SCH (20:40)
[2019-11-16] MEDS: Atorvastatin Calcium 40 MG TAB PO SCH (20:40)
[2019-11-16] MEDS: Famotidine 20 MG TAB PO SCH (20:40)
[2019-11-17 04:33] LABS: #Eosinphils 0.2 thou/uL (0.0-0.7); #Monocytes 0.9 thou/uL (0.11-0.59); #Neutrophils 4.4 thou/uL (1.40-6.50); %Basophils 0.3 % (0.0-1.0); %Eosinophils 3.3 % (0.0-10.0); %Lymphocytes 15.1 % (21.0-51.0); %Monocytes 13.3 % (0.0-10.0); Mean Corpuscular Hemoglobin 29.7 pg (27.0-31.0); Mean Corpuscular Volume 95.7 fL (78.0-98.0); Platelet Count 212 thou/uL (130-400); RBC Distribution Width 14.9 % (11.5-14.5); Red Blood Cell (RBC) Count 3.02 mill/uL (4.70-6.10); White Blood Cell (WBC) Count 6.5 thou/uL (4.8-10.8)
[2019-11-17 05:02] LABS: Anion Gap 10 mmol/L (10-20); BUN (Urea Nitrogen) 34 mg/dL (8.4-25.7); Calc. Creatinine Clearance 34 mL/min (70-130); Calcium 8.6 mg/dL (7.8-10.44); Carbon Dioxide 27 mmol/L (23-31); Chloride 107 mmol/L (98-107); Estimated GFR-MDRD 33; Glucose 204 mg/dL (83-110); Magnesium 2.4 mg/dL (1.6-2.6); Potassium 4.2 mmol/L (3.5-5.1); Sodium 140 mmol/L (136-145)
[2019-11-17] MEDS: Levothyroxine Sodium 50 MCG TAB PO SCH (06:08)
[2019-11-17] MEDS: HumaLOG 300 UNITS/3 ML VIAL SC PRN ×2 (06:09→17:03)
[2019-11-17] MEDS: Apixaban 5 MG TAB PO SCH ×4 (07:30→20:46)
[2019-11-17] MEDS: Carvedilol 6.25 MG TAB PO SCH ×2 (07:56→17:03)
[2019-11-17] MEDS: AcetaZOLAMIDE 250 MG TAB PO SCH (07:57)
[2019-11-17] MEDS: Amiodarone 200 MG TAB PO SCH ×2 (07:57→20:46)
[2019-11-17] MEDS: Clopidogrel Bisulfate 75 MG TAB PO SCH (07:58)
[2019-11-17] MEDS: Aspirin Chewable 81 MG TAB PO SCH (07:58)
[2019-11-17] MEDS: Bisacodyl 5 MG TAB PO SCH (07:58)
[2019-11-17] MEDS: Insulin Glargine 8 UNITS in Pre-Filled Syringe SC SCH ×2 (07:59→22:50)
[2019-11-17] MEDS: Potassium Chloride 10 MEQ TAB PO SCH ×2 (07:59→20:46)
[2019-11-17] MEDS: Torsemide 20 MG TAB PO SCH (07:59)
[2019-11-17] MEDS: DOBUTAMINE 250 MG-D5W 250 ML 250 MG in Premix Bag 1 BAG IV SCH (10:10)
--- NOTE | 2019-11-17 10:36 | PRG ---
DATE OF SERVICE: 11/17/2019 SUBJECTIVE: Mr. Red had an uneventful day. He was able to keep his PICC line in place and he has seemed to be understanding the way he is. He is complying with instructions. He does not have any complaint. REVIEW OF SYSTEMS: GENERAL: There is no fever or chills. HEENT: There is no change in hearing, swallowing, or vision. He does have chronic hard of hearing. PULMONARY: He says he is not short of breath, but he does have to sleep at 45 degrees angle or higher. CARDIOVASCULAR: He denies palpitations or syncope. GI: He is eating well. : He is able to urinate on his own, but sometimes have accidents. MUSCULOSKELETAL: Chronic joint pain, but has not complained of that right now. INTEGUMENT: He said his right forearm is hurting at the PIV site NEUROLOGIC: There are no new focal deficits. PSYCHIATRIC: He has been confused, but then Haldol and risperidone seem to be working for him. Ativan will make him much more confused later on. OBJECTIVE: VITAL SIGNS: Telemetry was reviewed. He is in combination of sinus and also atrial arrhythmia and his average heart rate is about 89. His current blood pressure is 115/71 with heart rate 84, oxygen saturation 99% on room air. GENERAL: He is alert and conversational. Able to answer questions correctly. HEENT: Show EOMI. PERRL. His oropharynx benign with moist mucosa without erythema. NECK: JVP in his arm more elevated now at 12 cm or higher with positive hepatojugular reflux. LUNGS: Good air movement. There is increased crackles in the lower one-half of the lungs. HEART: Regular rate and rhythm sometimes, other times becomes irregular. Has 2 /6 holosystolic murmur at the apex with radiation to left axilla. ABDOMEN: Soft, nontender. Positive bowel sounds. There is no fluid wave. EXTREMITIES: Lower extremities, he has some slight pitting edema to just above the ankles. LABORATORY VALUES: Sodium 140, potassium 4.2, BUN at 34, creatinine had slightly risen to 2.36. Overall, he has gained more fluid at the current amount of diuretics. This is insufficient. ASSESSMENT: A 74-year-old gentleman remains in [place] Heart Association stage D and also [place] Heart Association class 3B heart failure with reduced ejection fraction. He has both baseline nonischemic cardiomyopathy that was worsened by anterior myocardial infarction in January 2019. It is combined systolic and diastolic dysfunction with heart failure. He also has atrial arrhythmia and paroxysmal nonsustained VT. He currently has increasing volume and his renal dysfunction is also worsening. This is recurring despite milrinone 0.375 mcg/kg/minute. This is about the highest dose possible for his renal condition. Assess the overall picture is now is quite grim. He is unable to sustain diuresis or preserve renal function at this milrinone dosage. I will add low dose of dobutamine to increase cardiac output to sustain diuresis. It is not certain at this point, chronic milrinone will be sufficient. He may be palliative care to hospice candidate. Even that is the case, we will try to get as much fluid off as possible and make him as comfortable as possible. In the meantime, we are trying to add dobutamine, get the fluid off, and reach titrated back down and see how the outcome is. This will be one last attempt. RECOMMENDATIONS: 1. Add dobutamine starting at 2.5 mcg/kg/minute. 2. Stop oral torsemide. 3. Stop oral acetazolamide. 4. However, replace all diuretics with furosemide 80 mg IV b.i.d. starting this afternoon. Please look at his right forearm and remove peripheral IV does not being used today and is hurting his arm. 5. I will call our whole family conference with his about his ongoing situation. It has been a pleasure taking care of Mr. Joe Red. If you have any questions, please give me a call. Job ID: [id number] [facility]
[2019-11-17] MEDS: Furosemide 100 MG/10 ML VIAL SLOW IVP SCH (14:37)
--- NOTE | 2019-11-17 15:37 | PDOC.HOSPP ---
- Subjective Encounter Date: 11/17/19 Encounter Time: 12:20 Subjective: no sob, feels better responds well to verbal stimuli no chest pain or palp - Objective Vital Signs & Weight: Vital Signs (12 hours) Temp Pulse Resp BP Pulse Ox 11/17/19 13:54 79 20 99 11/17/19 10:58 98.3 F 11/17/19 07:56 118/74 11/17/19 07:12 97.9 F 11/17/19 06:35 78 21 H 97 11/17/19 04:07 98.6 F Weight Admit Weight 208 lb 5.389 oz Weight 191 lb 6.4 oz Most Recent Monitor Data Heart Rate from ECG 92 NIBP 138/87 NIBP BP-Mean 104 Respiration from ECG 27 SpO2 100 I&O: 11/16/19 11/17/19 11/18/19 06:59 06:59 06:59 Intake Total 592.9 503 Output Total 1050 325 Balance -457.1 178 Result Diagrams: 11/17/19 04:10 11/17/19 04:10 Additional Labs: Accuchecks 11/17/19 11/16/19 11/16/19 10:40 20:42 16:07 POC Glucose 203 H 244 H 253 H Hospitalist ROS - Medication Medications: Active Medications Generic Name Dose Route Start Last Admin Trade Name Freq PRN Reason Stop Dose Admin Acetaminophen 650 mg 11/07/19 20:27 11/16/19 10:02 Tylenol PO 650 mg Q4H PRN Administration Headache/Fever/Mild Pain (1-3) Albuterol/Ipratropium 3 ml 11/08/19 01:00 11/17/19 13:54 Duoneb NEB 3 ml [id number] ARMOND Administration Amiodarone HCl 400 mg 11/13/19 21:00 11/17/19 07:57 Cordarone PO 400 mg Q12HR ARMOND Administration Apixaban 5 mg 11/14/19 09:00 11/17/19 07:58 Eliquis PO 5 mg BID ARMOND Administration Aspirin 81 mg 11/08/19 09:00 11/17/19 07:58 Aspirin Chewable PO 81 mg DAILY ARMOND Administration Atorvastatin Calcium 80 mg 11/08/19 21:00 11/16/19 20:40 Lipitor PO 80 mg HS ARMOND Administration Bisacodyl 10 mg 11/16/19 09:00 11/17/19 07:58 Dulcolax PO 10 mg DAILY ARMOND Administration Carvedilol 12.5 mg 11/08/19 08:00 11/17/19 07:56 Coreg PO 12.5 mg BID-WM ARMOND Administration Clopidogrel Bisulfate 75 mg 11/08/19 09:00 11/17/19 07:58 Plavix PO 75 mg DAILY ARMOND Administration Dextrose/Water 25 gm 11/07/19 22:54 11/10/19 10:55 Dextrose 50% SLOW IVP 25 gm PRN PRN Administration Hypoglycemia Ezetimibe 10 mg 11/08/19 21:00 11/16/19 20:40 Zetia PO 10 mg HS ARMOND Administration Famotidine 20 mg 11/07/19 21:00 11/16/19 20:40 Pepcid PO 20 mg QPM ARMOND Administration Furosemide 80 mg 11/17/19 14:00 11/17/19 14:37 Lasix SLOW IVP 80 mg 0600,1400 ARMOND Administration Insulin Glargine 8 units/ 0.08 mls @ 0 mls/hr 11/10/19 21:00 11/17/19 07:59 Miscellaneous Medication SC 0.08 mls BID ARMOND Administration Milrinone Lactate 20 mg/ 100 mls @ 9.95 mls/hr 11/13/19 08:15 11/17/19 01:52 Sodium Chloride IVPB 100 mls INF ARMOND Administration Protocol 0.375 MCG/KG/MIN Dobutamine HCl/Dextrose 250 mg 250 mls @ 0 mls/hr 11/17/19 09:15 11/17/19 10: 10 / Device IV 250 mls INF ARMOND Administration Protocol As Directed Insulin Human Lispro 0 units 11/07/19 22:54 11/17/19 06:09 Humalog SC 3 unit .MILD SLIDING SCALE PRN Administration Mild Correctional Scale Levothyroxine Sodium 50 mcg 11/08/19 06:00 11/17/19 06:08 Synthroid PO 50 mcg 0600 ARMOND Administration Lorazepam 0.5 mg 11/09/19 18:45 11/14/19 01:34 Ativan SLOW IVP 0.5 mg Q6H PRN Administration Anxiety/Agitation Potassium Chloride 10 meq 11/09/19 09:00 11/17/19 07:59 Klor-Con 10 PO 10 meq BID ARMOND Administration Risperidone 1 mg 11/14/19 21:00 11/16/19 20:40 Risperidone PO 1 mg HS ARMOND Administration Sodium Chloride 10 ml 11/08/19 09:00 11/17/19 07:59 Flush - Normal Saline IVF 10 ml Q12HR ARMOND Administration - Exam General Appearance: awake alert Eye: PERRL, anicteric sclera ENT: no oropharyngeal lesions, moist mucosa Neck: supple, JVD Heart: no murmur, irregular Respiratory: no wheezes, no ronchi, rales Gastrointestinal: soft, non-tender, non-distended, normal bowel sounds Extremities: no cyanosis, 1+ LE edema Neurological: cranial nerve grossly intact, no focal deficits Psychiatric: normal affect, A&O x 3 Hosp A/P (1) Acute on chronic systolic heart failure, NYHA class 3 Code(s): I50.23 - ACUTE ON CHRONIC SYSTOLIC (CONGESTIVE) HEART FAILURE Status : Acute (2) Physical deconditioning Code(s): R53.81 - OTHER MALAISE Status: Acute (3) CKD (chronic kidney disease) stage 3, GFR 30-59 ml/min Code(s): N18.3 - CHRONIC KIDNEY DISEASE, STAGE 3 (MODERATE) Status: Chronic (4) DM2 (diabetes mellitus, type 2) Status: Chronic Qualifiers: 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: with ferry terminal supervisor use Diabetes mellitus complication status: with kidney complications Diabetes mellitus complication detail: with chronic kidney disease Chronic kidney disease stage : stage 3 (moderate) Qualified Code(s): E11.22 - Type 2 diabetes mellitus with diabetic chronic kidney disease; N18.3 - Chronic kidney disease, stage 3 ( moderate); Z79.4 - [facility] (current) use of insulin (5) H/O: CVA (cerebrovascular accident) Code(s): Z86.73 - PRSNL HX OF TIA (TIA), AND CEREB INFRC W/O RESID DEFICITS Status: Chronic (6) HLD (hyperlipidemia) Code(s): E78.5 - HYPERLIPIDEMIA, UNSPECIFIED Status: Chronic (7) HTN (hypertension) Code(s): I10 - ESSENTIAL (PRIMARY) HYPERTENSION Status: Chronic Qualifiers: Hypertension type: essential hypertension Qualified Code(s): I10 - Essential (primary) hypertension (8) PAF (paroxysmal atrial fibrillation) Code(s): I48.0 - PAROXYSMAL ATRIAL FIBRILLATION Status: Chronic (9) Dementia Code(s): F03.90 - UNSPECIFIED DEMENTIA WITHOUT BEHAVIORAL DISTURBANCE Status: Suspected Qualifiers: Dementia type: Alzheimer's disease (10) CAD (coronary artery disease) Code(s): I25.10 - ATHSCL HEART DISEASE OF [place] CORONARY ARTERY W/O ANG PCTRS Status: Chronic Qualifiers: Coronary Disease-Associated Artery/Lesion type: [place] artery [place] vs. transplanted heart: [place] heart Associated angina: without angina Qualified Code(s): I25.10 - Atherosclerotic heart disease of [place] coronary artery without angina pectoris - Plan is on Milrinone drip, lasix 80mg iv q12h, amiodarone bid, coreg, asp, plavix, lipitor, eliquis, zetia and synthroid to amb as tolerated echo showed ef of 10-15%, has picc line in right UE d/w , if pt pulls his picc line out, then he will go home or snf with hospice if not HH with hospice dc plan per 's adv watch for renal function
[2019-11-17] MEDS: Acetaminophen 325 MG TAB PO PRN (20:45)
[2019-11-17] MEDS: Atorvastatin Calcium 40 MG TAB PO SCH (20:45)
[2019-11-17] MEDS: Ezetimibe 10 MG TAB PO SCH (20:46)
[2019-11-17] MEDS: Famotidine 20 MG TAB PO SCH (20:47)
[2019-11-17] MEDS: risperiDONE 1 MG TAB PO SCH (20:47)
[2019-11-18 05:01] LABS: Anion Gap 13 mmol/L (10-20); BUN (Urea Nitrogen) 32 mg/dL (8.4-25.7); Calc. Creatinine Clearance 35 mL/min (70-130); Calcium 8.7 mg/dL (7.8-10.44); Carbon Dioxide 23 mmol/L (23-31); Chloride 107 mmol/L (98-107); Estimated GFR-MDRD 33; Glucose 201 mg/dL (83-110); Magnesium 2.4 mg/dL (1.6-2.6); Potassium 4.6 mmol/L (3.5-5.1); Sodium 138 mmol/L (136-145)
[2019-11-18] MEDS: DOBUTAMINE 250 MG-D5W 250 ML 250 MG in Premix Bag 1 BAG IV SCH ×2 (05:16→05:18)
[2019-11-18] MEDS: Furosemide 100 MG/10 ML VIAL SLOW IVP SCH ×2 (05:18→14:08)
[2019-11-18] MEDS: Levothyroxine Sodium 50 MCG TAB PO SCH (05:19)
[2019-11-18 05:58] LABS: #Eosinphils 0.2 thou/uL (0.0-0.7); #Lymphocytes 0.9 thou/uL (1.20-3.40); #Neutrophils 5.3 thou/uL (1.40-6.50); %Basophils 0.5 % (0.0-1.0); %Eosinophils 2.9 % (0.0-10.0); %Lymphocytes 11.8 % (21.0-51.0); %Monocytes 13.3 % (0.0-10.0); %Neutrophils 71.6 % (42.0-75.0); Hemoglobin 10.8 g/dL (14.0-18.0); Mean Corpuscular HGB CONC 31.2 g/dL (32.0-36.0); Mean Platelet Volume 9.6 fL (7.4-10.4); Platelet Count 220 thou/uL (130-400); Red Blood Cell (RBC) Count 3.59 mill/uL (4.70-6.10); White Blood Cell (WBC) Count 7.4 thou/uL (4.8-10.8)
[2019-11-18] MEDS: Carvedilol 6.25 MG TAB PO SCH ×2 (08:30→16:37)
[2019-11-18] MEDS: Bisacodyl 5 MG TAB PO SCH (08:31)
[2019-11-18] MEDS: Amiodarone 200 MG TAB PO SCH ×2 (08:31→20:40)
[2019-11-18] MEDS: Aspirin Chewable 81 MG TAB PO SCH (08:31)
[2019-11-18] MEDS: Apixaban 5 MG TAB PO SCH ×2 (08:31→20:39)
[2019-11-18] MEDS: Potassium Chloride 10 MEQ TAB PO SCH ×2 (08:32→20:41)
[2019-11-18] MEDS: Insulin Glargine 8 UNITS in Pre-Filled Syringe SC SCH ×2 (08:35→20:42)
[2019-11-18] MEDS: Clopidogrel Bisulfate 75 MG TAB PO SCH (08:35)
[2019-11-18] MEDS: HumaLOG 300 UNITS/3 ML VIAL SC PRN ×3 (08:36→17:15)
--- NOTE | 2019-11-18 12:59 | PDOC.HOSPP ---
- Subjective Encounter Date: 11/18/19 Encounter Time: 12:00 Subjective: no sob or palp or chest pain says he is amb in room with no dizziness 2 daughters at bedside - Objective Vital Signs & Weight: Vital Signs (12 hours) Temp Pulse Resp BP BP Pulse Ox 11/18/19 12:34 83 14 11/18/19 11:13 98.5 F 82 16 118/70 96 11/18/19 08:30 118/64 11/18/19 07:13 99.2 F 88 16 128/68 95 11/18/19 06:51 80 14 11/18/19 05:38 98.6 F 80 16 128/69 96 Weight Admit Weight 208 lb 5.389 oz Weight 198 lb Most Recent Monitor Data Heart Rate from ECG 92 NIBP 138/87 NIBP BP-Mean 104 Respiration from ECG 27 SpO2 100 I&O: 11/17/19 11/18/19 11/19/19 06:59 06:59 06:59 Intake Total 503 716 Output Total 325 1025 Balance 178 -309 Result Diagrams: 11/18/19 04:32 11/18/19 04:32 Additional Labs: Accuchecks 11/18/19 11/18/19 11/17/19 11:29 05:47 20:53 POC Glucose 211 H 217 H 245 H 11/17/19 16:49 POC Glucose 200 H Hospitalist ROS - Medication Medications: Active Medications Generic Name Dose Route Start Last Admin Trade Name Freq PRN Reason Stop Dose Admin Acetaminophen 650 mg 11/07/19 20:27 11/17/19 20:45 Tylenol PO 650 mg Q4H PRN Administration Headache/Fever/Mild Pain (1-3) Albuterol/Ipratropium 3 ml 11/08/19 01:00 11/18/19 12:34 Duoneb NEB 3 ml [id number] ARMOND Administration Amiodarone HCl 400 mg 11/13/19 21:00 11/18/19 08:31 Cordarone PO 11/18/19 23:59 400 mg Q12HR ARMOND Administration Apixaban 5 mg 11/14/19 09:00 11/18/19 08:31 Eliquis PO 5 mg BID ARMOND Administration Aspirin 81 mg 11/08/19 09:00 11/18/19 08:31 Aspirin Chewable PO 81 mg DAILY ARMOND Administration Atorvastatin Calcium 80 mg 11/08/19 21:00 11/17/19 20:45 Lipitor PO 80 mg HS ARMOND Administration Bisacodyl 10 mg 11/16/19 09:00 11/18/19 08:31 Dulcolax PO Not Given DAILY ARMOND Carvedilol 12.5 mg 11/08/19 08:00 11/18/19 08:30 Coreg PO 12.5 mg BID-WM ARMOND Administration Clopidogrel Bisulfate 75 mg 11/08/19 09:00 11/18/19 08:35 Plavix PO 75 mg DAILY ARMOND Administration Dextrose/Water 25 gm 11/07/19 22:54 11/10/19 10:55 Dextrose 50% SLOW IVP 25 gm PRN PRN Administration Hypoglycemia Ezetimibe 10 mg 11/08/19 21:00 11/17/19 20:46 Zetia PO 10 mg HS ARMOND Administration Famotidine 20 mg 11/07/19 21:00 11/17/19 20:47 Pepcid PO 20 mg QPM ARMOND Administration Furosemide 80 mg 11/17/19 14:00 11/18/19 05:18 Lasix SLOW IVP 11/19/19 00:01 80 mg 0600,1400 ARMOND Administration Insulin Glargine 8 units/ 0.08 mls @ 0 mls/hr 11/10/19 21:00 11/18/19 08:35 Miscellaneous Medication SC 0.08 mls BID ARMOND Administration Milrinone Lactate 20 mg/ 100 mls @ 9.95 mls/hr 11/13/19 08:15 11/18/19 11:38 Sodium Chloride IVPB 11/18/19 23:59 100 mls INF ARMOND Administration Protocol 0.375 MCG/KG/MIN Dobutamine HCl/Dextrose 250 mg 250 mls @ 0 mls/hr 11/17/19 09:15 11/18/19 05: 18 / Device IV 250 mls INF ARMOND Administration Protocol As Directed Insulin Human Lispro 0 units 11/07/19 22:54 11/18/19 11:27 Humalog SC 3 unit .MILD SLIDING SCALE PRN Administration Mild Correctional Scale Levothyroxine Sodium 50 mcg 11/08/19 06:00 11/18/19 05:19 Synthroid PO 50 mcg 0600 ARMOND Administration Lorazepam 0.5 mg 11/09/19 18:45 11/14/19 01:34 Ativan SLOW IVP 0.5 mg Q6H PRN Administration Anxiety/Agitation Potassium Chloride 10 meq 11/09/19 09:00 11/18/19 08:32 Klor-Con 10 PO 10 meq BID ARMOND Administration Risperidone 1 mg 11/14/19 21:00 11/17/19 20:47 Risperidone PO 1 mg HS ARMOND Administration Sodium Chloride 10 ml 11/08/19 09:00 11/18/19 08:32 Flush - Normal Saline IVF Not Given Q12HR ARMOND - Exam General Appearance: NAD, awake alert Eye: PERRL, anicteric sclera ENT: no oropharyngeal lesions, moist mucosa Neck: supple, no JVD Heart: RRR, no murmur Respiratory: no wheezes, no rales Gastrointestinal: soft, non-tender, non-distended, normal bowel sounds Extremities: no cyanosis, 1+ LE edema Neurological: cranial nerve grossly intact, no focal deficits Psychiatric: normal affect, A&O x 3 Hosp A/P (1) Acute on chronic systolic heart failure, NYHA class 3 Code(s): I50.23 - ACUTE ON CHRONIC SYSTOLIC (CONGESTIVE) HEART FAILURE Status : Acute (2) Physical deconditioning Code(s): R53.81 - OTHER [place] Status: Acute (3) CKD (chronic kidney disease) stage 3, GFR 30-59 ml/min Code(s): N18.3 - CHRONIC KIDNEY DISEASE, STAGE 3 (MODERATE) Status: Chronic (4) DM2 (diabetes mellitus, type 2) Status: Chronic Qualifiers: Diabetes mellitus long-term insulin use: with long-term use Diabetes mellitus complication status: with kidney complications Diabetes mellitus complication detail: with chronic kidney disease Chronic kidney disease stage : stage 3 (moderate) Qualified Code(s): E11.22 - Type 2 diabetes mellitus with diabetic chronic kidney disease; N18.3 - Chronic kidney disease, stage 3 ( moderate); 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.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 (5) H/O: CVA (cerebrovascular accident) Code(s): Z86.73 - PRSNL HX OF TIA (TIA), AND CEREB INFRC W/O RESID DEFICITS Status: Chronic (6) HLD (hyperlipidemia) Code(s): E78.5 - HYPERLIPIDEMIA, UNSPECIFIED Status: Chronic (7) HTN (hypertension) Code(s): I10 - ESSENTIAL (PRIMARY) HYPERTENSION Status: Chronic Qualifiers: Hypertension type: essential hypertension Qualified Code(s): I10 - Essential (primary) hypertension (8) PAF (paroxysmal atrial fibrillation) Code(s): I48.0 - PAROXYSMAL ATRIAL FIBRILLATION Status: Chronic (9) Dementia Code(s): F03.90 - UNSPECIFIED DEMENTIA WITHOUT BEHAVIORAL DISTURBANCE Status: Suspected Qualifiers: Dementia type: Alzheimer's disease (10) CAD (coronary artery disease) Code(s): I25.10 - ATHSCL HEART DISEASE OF [place] CORONARY ARTERY W/O ANG PCTRS Status: Chronic Qualifiers: Coronary Disease-Associated Artery/Lesion type: [place] artery [place] vs. transplanted heart: [place] heart Associated angina: without angina Qualified Code(s): I25.10 - Atherosclerotic heart disease of [place] coronary artery without angina pectoris - Plan is on Milrinone and dobutamine drip, lasix 80mg iv q12h, amiodarone bid, coreg, asp, plavix, lipitor, eliquis, zetia and synthroid to change to milrinone 0.25mcg/kg/min from midnight tonight and amiodarone daily from am to amb as tolerated with cardiac rehab echo showed ef of 10-15%, has picc line in right UE d/w (11/17/2019), if pt pulls his picc line out, then he will go home or snf with hospice if not HH with hospice palliative care is following patient and to d/w . dc plan per 's adv watch for renal function
[2019-11-18] MEDS: Acetaminophen 325 MG TAB PO PRN (18:06)
[2019-11-18] MEDS: Famotidine 20 MG TAB PO SCH (20:40)
[2019-11-18] MEDS: Atorvastatin Calcium 40 MG TAB PO SCH (20:41)
[2019-11-18] MEDS: risperiDONE 1 MG TAB PO SCH (20:54)
[2019-11-18] MEDS: Ezetimibe 10 MG TAB PO SCH (20:54)
[2019-11-18] MEDS ORDERED: DOBUTamine 500 mg/250 ml 500 MG in Premix Bag 1 BAG IVPB SCH (23:45)
[2019-11-19 05:07] LABS: #Basophils 0.1 thou/uL (0.0-0.2); #Eosinphils 0.2 thou/uL (0.0-0.7); #Monocytes 0.9 thou/uL (0.11-0.59); #Neutrophils 4.4 thou/uL (1.40-6.50); %Basophils 0.9 % (0.0-1.0); %Eosinophils 3.1 % (0.0-10.0); %Lymphocytes 15.1 % (21.0-51.0); %Monocytes 13.2 % (0.0-10.0); %Neutrophils 67.7 % (42.0-75.0); Hemoglobin 9.6 g/dL (14.0-18.0); Mean Corpuscular HGB CONC 31.7 g/dL (32.0-36.0); Mean Corpuscular Hemoglobin 30.4 pg (27.0-31.0); Mean Corpuscular Volume 95.8 fL (78.0-98.0); Mean Platelet Volume 9.4 fL (7.4-10.4); Platelet Count 247 thou/uL (130-400); RBC Distribution Width 15.1 % (11.5-14.5); Red Blood Cell (RBC) Count 3.17 mill/uL (4.70-6.10); White Blood Cell (WBC) Count 6.4 thou/uL (4.8-10.8)
[2019-11-19 05:29] LABS: Anion Gap 11 mmol/L (10-20); BUN (Urea Nitrogen) 36 mg/dL (8.4-25.7); Calc. Creatinine Clearance 29 mL/min (70-130); Calcium 8.9 mg/dL (7.8-10.44); Carbon Dioxide 25 mmol/L (23-31); Chloride 107 mmol/L (98-107); Estimated GFR-MDRD 26; Glucose 178 mg/dL (83-110); Magnesium 2.6 mg/dL (1.6-2.6); Potassium 4.1 mmol/L (3.5-5.1); Sodium 139 mmol/L (136-145)
[2019-11-19] MEDS: Levothyroxine Sodium 50 MCG TAB PO SCH (05:39)
--- NOTE | 2019-11-19 08:18 | PRG ---
DATE OF SERVICE: 11/18/2019 SUBJECTIVE: Mr. Red had a good day. He required dobutamine augmentation in addition to milrinone to sustain blood pressure and good urine output. For first time in 2 days, he was able to sustain a large urine output without worsening his renal function. His overall prognosis was discussed with him and also his . Due to the fact that his ejection fraction was 10% and the maximum dose allowable of milrinone for his renal condition cannot support him, thre is really no outpatient option at this point. Both he and his have decided to go into palliative care with transition to hospice and his and his son will be coming to visit him today. REVIEW OF SYSTEMS: GENERAL: There is no fever or chills. HEENT: There is no change in hearing, swallowing, or vision. He does have chronic hard of hearing. PULMONARY: He says he is not short of breath, but he does have to sleep with head elevated. CARDIOVASCULAR: He denies palpitations or syncope. GI: He is eating well. : He said he has a large volume of urine output yesterday. He is able to urinate on his own, but he does have accident. MUSCULOSKELETAL: He has joint pains, but this is currently not complaining. INTEGUMENT: There are no new lesions. NEUROLOGIC: There are no new focal deficits. PSYCHIATRIC: He has been confused, but then combination of risperidone and Haldol has been keeping him controlled and functional. OBJECTIVE: VITAL SIGNS: His telemetry was reviewed. He is in sinus, but has occasional runs of atrial tachycardia likely atrial fibrillation. His average rate is about 93. His blood pressure currently is recorded as 120/68. GENERAL: He is alert, conversational, sitting upright, eating breakfast comfortably in bed. HEENT: Show EOMI. PERRL. Oropharynx is benign with moist mucosa. NECK: JVP has reduced down to about 11 cm. This is less than yesterday. LUNGS: Good air movement bilateral with crackles only at the bases. This has improved from yesterday. CARDIAC: Regular with irregular bursts. He has systolic murmur, noted as 1/6 holosystolic murmur at the apex with radiation to the left axilla. This also was reduced. ABDOMEN: Softer today. Positive bowel sounds. EXTREMITIES: His lower extremities have gone down. His pitting edema is now minimal in his feet. LABORATORY DATA: His sodium is 138, potassium 4.6, BUN 32, creatinine decreased a bit to 2.33. ASSESSMENT: A 74-year-old gentleman, remains [place] Heart Association stage D and also [place] Heart Association class 4 heart failure with reduced ejection fraction. He started out with baseline nonischemic cardiomyopathy that was worsened by anterior myocardial infarction in January 2019. It is combined systolic and diastolic dysfunction heart failure. He also has atrial tachycardia and also paroxysmal ventricular tachycardia. He required milrinone at 0.375 mcg/kg/min, which is maximum dose possible for his renal status plus dobutamine at 2.5 mcg/kg/min to sustain diuresis without worsening the kidneys. The milrinone alone was insufficient. With renal function as it is, cannot go any higher on milrinone. It is not sustainable to continue to drips. This was discussed with the patient and . At this point, the most rational choice is to transition to hospice care. In the meantime, we will get much fluid off and keep him dry as possible before titration down off inotropic medications. RECOMMENDATIONS: 1. Consult Palliative Care-hospice with an aim of discharge on Tuesday or Tuesday this coming week. 2. Keep current dose of milrinone 0.375 mcg/kg/min and dobutamine 2.5 mcg/kg/ min for most of the day. 3. Continue with Lasix 80 mg IV b.i.d. for today only. 4. At midnight, decrease milrinone dose to 0.25 mcg/kg/min in preparation with titrating off on Tuesday. 5. Tomorrow morning, stop IV Lasix and start torsemide 80 mg daily p.o. 6. His discharge medication will consist of torsemide 80 mg p.o. daily, carvedilol 12.5 mg b.i.d. This is to keep his arrhythmia as much control as possible and amiodarone 200 mg daily. If he gains more fluid, which is expected, he can double the torsemide to b.i.d. and if that is insufficient, then he will have metolazone. It has been a pleasure taking care of Mr. Red. If you have any questions, please give me a call. Job ID: [id number] [facility]
[2019-11-19] MEDS: Carvedilol 6.25 MG TAB PO SCH (08:54)
[2019-11-19] MEDS: Amiodarone 200 MG TAB PO SCH (08:56)
[2019-11-19] MEDS: Aspirin Chewable 81 MG TAB PO SCH (08:57)
[2019-11-19] MEDS: Bisacodyl 5 MG TAB PO SCH (08:57)
[2019-11-19] MEDS: Apixaban 5 MG TAB PO SCH ×2 (08:57→20:12)
[2019-11-19] MEDS: Insulin Glargine 8 UNITS in Pre-Filled Syringe SC SCH ×2 (08:58→20:22)
[2019-11-19] MEDS: Clopidogrel Bisulfate 75 MG TAB PO SCH (08:58)
[2019-11-19] MEDS: Potassium Chloride 10 MEQ TAB PO SCH ×2 (08:58→20:12)
[2019-11-19] MEDS: HumaLOG 300 UNITS/3 ML VIAL SC PRN ×3 (08:59→17:36)
[2019-11-19] MEDS: Torsemide 20 MG TAB PO SCH (08:59)
--- NOTE | 2019-11-19 10:50 | PRG ---
DATE OF SERVICE: 11/19/2019 SUBJECTIVE: Mr. Diaz had a mixed day yesterday. He had an excellent visit with his and son and 7 grandchildren. He said he has thought about things over a quite a bit. Today, he said he is ready to pass on, he is ready to go hospice. He said that has made peace with God. Mr. Red became confused last night and pulled out his PICC. So consequently, both milrinone and dobutamine were stopped. There was no PIV placed since sometimes in the evening. So he went a long time without drips. OBJECTIVE: VITAL SIGNS: This morning, heart rate about 76. Telemetry was reviewed. There is no concerning arrhythmias right now, though he has a combination of atrial arrhythmia, paced rhythm, and sinus rhythm. His blood pressure is 98/ 60. GENERAL: He is alert and conversational this morning, sitting comfortably in bed. NECK: His JVP is about 12 cm, this is higher than yesterday. LUNGS: Have crackles now at bilateral lower 1/2 lung [place], these have much increased from yesterday. HEART: mix or regular and irrigular rhythms. His mitral regurgitation murmur has intensified, he has 2/6 holosystolic murmur at the apex with radiation to the left axilla, somewhat louder than yesterday. ABDOMEN: Still soft and nontender. Positive bowel sounds. EXTREMITIES: Lower extremities only have pitting above the feet. LABORATORY DATA: Without milrinone and dobutamine combined, his laboratory value has significantly worsened. His BUN increased to 36, creatinine increased to 2.89. Without milrinone and dobutamine, his kidneys are not able to be perfused. ASSESSMENT: A 74-year-old gentleman, remains in [place] Heart Association stage D and [place] heart Association class 4 heart failure with reduced ejection fraction. He has long-standing nonischemic cardiomyopathy that was worsen by myocardial infarction in January 2019. This combination has reduced his heart function down to ejection fraction of 10%. He demonstrated need for both milrinone and dobutamine just to sustain enough cardiac output to perfuse his kidneys. This is non-sustainable. He also has baseline dementia. He has pulled out his PICC several times now; therefore, this will not be able to be manageable at home. Mrs. Zev Red came in for a family meeting this morning. Both Mr. Joe Red and his Mrs. Zev Golden agreed and desired that Mr. Red to go to hospice care. RECOMMENDATIONS: 1. Please transition patient to hospice care. 2. Just leave all the drips off. 3. Turn off the AICD. I have contacted [employer] life assurance representative already. They will come in this morning to disable the shock and ATP portions of the AICD. 4. You can keep the oral medications of carvedilol 12.5 mg b.i.d. and also torsemide at 40 mg daily. Torsemide can bed increased to twice a day when the fluid accumulates. 5. When he starts dropping his blood pressure, you can just stop the carvedilol. Torsemide will be effective for several days. After that, he may need to have addition of metolazone. 6. The patient will likely need new medication to ease his breathing. With his fast reaccumulation and worsening of renal function with cessation of inotropic drips , he will probably not survive very long. With dementia, it may be reasonable to be inpatient hospice. If the patient wants to go home, that will be reasonable too , he does want to spend [place] at home. 7. It is unfortunate that his heart has deteriorated to this point. Hospice is the only viable option. At this point, [facility] will sign off. Thank you for the consult. Job ID: [id number] [facility]
--- NOTE | 2019-11-19 11:24 | PDOC.HOSPP ---
- Subjective Encounter Date: 11/19/19 Encounter Time: 08:45 Subjective: no sob or chest pain pulled his picc line last night at bedside - Objective Vital Signs & Weight: Vital Signs (12 hours) Temp Pulse Resp BP BP Pulse Ox 11/19/19 08:54 100/71 11/19/19 07:33 98.9 F 68 18 98/60 96 11/19/19 07:13 68 18 98 11/19/19 03:40 98.3 F 79 18 99/69 98 11/19/19 01:03 73 16 95 11/19/19 00:00 75 103/59 L Weight Admit Weight 208 lb 5.389 oz Weight 192 lb 6.4 oz Most Recent Monitor Data Heart Rate from ECG 92 NIBP 138/87 NIBP BP-Mean 104 Respiration from ECG 27 SpO2 100 I&O: 11/18/19 11/19/19 11/20/19 06:59 06:59 06:59 Intake Total 716 1290 Output Total 1025 300 Balance -309 990 Result Diagrams: 11/19/19 04:26 11/19/19 04:26 Additional Labs: Accuchecks 11/19/19 11/19/19 11/18/19 10:47 06:22 20:52 POC Glucose 163 H 182 H 239 H 11/18/19 11/18/19 17:13 11:29 POC Glucose 179 H 211 H Hospitalist ROS - Medication Medications: Active Medications Generic Name Dose Route Start Last Admin Trade Name Freq PRN Reason Stop Dose Admin Acetaminophen 650 mg 11/07/19 20:27 11/18/19 18:06 Tylenol PO 650 mg Q4H PRN Administration Headache/Fever/Mild Pain (1-3) Albuterol/Ipratropium 3 ml 11/08/19 01:00 11/19/19 07:13 Duoneb NEB 3 ml [id number] ARMOND Administration Amiodarone HCl 200 mg 11/19/19 09:00 11/19/19 08:56 Cordarone PO 200 mg DAILY ARMOND Administration Apixaban 5 mg 11/14/19 09:00 11/19/19 08:57 Eliquis PO 5 mg BID ARMOND Administration Aspirin 81 mg 11/08/19 09:00 11/19/19 08:57 Aspirin Chewable PO 81 mg DAILY ARMOND Administration Atorvastatin Calcium 80 mg 11/08/19 21:00 11/18/19 20:41 Lipitor PO 80 mg HS ARMOND Administration Bisacodyl 10 mg 11/16/19 09:00 11/19/19 08:57 Dulcolax PO Not Given DAILY ARMOND Clopidogrel Bisulfate 75 mg 11/08/19 09:00 11/19/19 08:58 Plavix PO 75 mg DAILY ARMOND Administration Dextrose/Water 25 gm 11/07/19 22:54 11/10/19 10:55 Dextrose 50% SLOW IVP 25 gm PRN PRN Administration Hypoglycemia Ezetimibe 10 mg 11/08/19 21:00 11/18/19 20:54 Zetia PO 10 mg HS ARMOND Administration Famotidine 20 mg 11/07/19 21:00 11/18/19 20:40 Pepcid PO 20 mg QPM ARMOND Administration Haloperidol 1 mg 11/14/19 11:50 11/19/19 02:00 Haldol PO 1 mg Q6H PRN Administration Anxiety/Agitation Insulin Glargine 8 units/ 0.08 mls @ 0 mls/hr 11/10/19 21:00 11/19/19 08:58 Miscellaneous Medication SC 0.08 mls BID ARMOND Administration Insulin Human Lispro 0 units 11/07/19 22:54 11/19/19 08:59 Humalog SC 2 unit .MILD SLIDING SCALE PRN Administration Mild Correctional Scale Levothyroxine Sodium 50 mcg 11/08/19 06:00 11/19/19 05:39 Synthroid PO 50 mcg 0600 ARMOND Administration Lorazepam 0.5 mg 11/09/19 18:45 11/14/19 01:34 Ativan SLOW IVP 0.5 mg Q6H PRN Administration Anxiety/Agitation Potassium Chloride 10 meq 11/09/19 09:00 11/19/19 08:58 Klor-Con 10 PO 10 meq BID ARMOND Administration Risperidone 1 mg 11/14/19 21:00 11/18/19 20:54 Risperidone PO 1 mg HS ARMOND Administration Sodium Chloride 10 ml 11/08/19 09:00 11/19/19 08:59 Flush - Normal Saline IVF Not Given Q12HR ARMOND Torsemide 40 mg 11/19/19 09:00 11/19/19 08:59 Demadex PO 40 mg DAILY ARMOND Administration - Exam General Appearance: awake alert Eye: PERRL, anicteric sclera ENT: no oropharyngeal lesions, moist mucosa Neck: supple, no JVD Heart: RRR, no murmur Respiratory: no wheezes, no rales Gastrointestinal: soft, non-tender, non-distended, normal bowel sounds Extremities: no cyanosis, 1+ LE edema Neurological: cranial nerve grossly intact, no focal deficits Hosp A/P (1) Acute on chronic systolic heart failure, NYHA class 3 Code(s): I50.23 - ACUTE ON CHRONIC SYSTOLIC (CONGESTIVE) HEART FAILURE Status : Acute (2) Physical deconditioning Code(s): R53.81 - OTHER MALAISE Status: Acute (3) CKD (chronic kidney disease) stage 3, GFR 30-59 ml/min Code(s): N18.3 - CHRONIC KIDNEY DISEASE, STAGE 3 (MODERATE) Status: Chronic (4) DM2 (diabetes mellitus, type 2) Status: Chronic Qualifiers: 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 operator truck driver use Diabetes mellitus complication status: with kidney complications Diabetes mellitus complication detail: with chronic kidney disease Chronic kidney disease stage : stage 3 (moderate) Qualified Code(s): E11.22 - Type 2 diabetes mellitus with diabetic chronic kidney disease; N18.3 - Chronic kidney disease, stage 3 ( moderate); Z79.4 - skilled nursing (current) use of insulin (5) H/O: CVA (cerebrovascular accident) Code(s): Z86.73 - PRSNL HX OF TIA (TIA), AND CEREB INFRC W/O RESID DEFICITS Status: Chronic (6) HLD (hyperlipidemia) Code(s): E78.5 - HYPERLIPIDEMIA, UNSPECIFIED Status: Chronic (7) HTN (hypertension) Code(s): I10 - ESSENTIAL (PRIMARY) HYPERTENSION Status: Chronic Qualifiers: Hypertension type: essential hypertension Qualified Code(s): I10 - Essential (primary) hypertension (8) PAF (paroxysmal atrial fibrillation) Code(s): I48.0 - PAROXYSMAL ATRIAL FIBRILLATION Status: Chronic (9) Dementia Code(s): F03.90 - UNSPECIFIED DEMENTIA WITHOUT BEHAVIORAL DISTURBANCE Status: Suspected Qualifiers: Dementia type: Alzheimer's disease (10) CAD (coronary artery disease) Code(s): I25.10 - ATHSCL HEART DISEASE OF [place] CORONARY ARTERY W/O ANG PCTRS Status: Chronic Qualifiers: Coronary Disease-Associated Artery/Lesion type: [place] artery [place] vs. transplanted heart: ambler heart Associated angina: without angina Qualified Code(s): I25.10 - Atherosclerotic heart disease of [place]bler coronary artery without angina pectoris - Plan is on coreg, asp, amiodarone, plavix, lipitor, eliquis, zetia and synthroid to amb as tolerated with cardiac rehab echo showed ef of 10-15% d/w , is for hospice. May dc if above is arranged (inpt hospice if he qualifies) or skilled with hospice/comfort care, or home with hospice if others cant be arranged due to insurance d/w at bedside, she will talk to case mgmt
[2019-11-19] MEDS: Atorvastatin Calcium 40 MG TAB PO SCH (20:11)
[2019-11-19] MEDS: Famotidine 20 MG TAB PO SCH (20:11)
[2019-11-19] MEDS: Ezetimibe 10 MG TAB PO SCH (20:11)
[2019-11-19] MEDS: risperiDONE 1 MG TAB PO SCH (20:11)
[2019-11-20 04:26] VITALS: BMI 30.3
[2019-11-20 04:39] LABS: #Basophils 0.1 thou/uL (0.0-0.2); #Eosinphils 0.2 thou/uL (0.0-0.7); #Lymphocytes 1.1 thou/uL (1.20-3.40); #Monocytes 0.8 thou/uL (0.11-0.59); #Neutrophils 4.1 thou/uL (1.40-6.50); %Basophils 1.2 % (0.0-1.0); %Eosinophils 3.2 % (0.0-10.0); %Lymphocytes 17.1 % (21.0-51.0); %Monocytes 13.3 % (0.0-10.0); %Neutrophils 65.1 % (42.0-75.0); Hemoglobin 10.1 g/dL (14.0-18.0); Mean Corpuscular HGB CONC 31.2 g/dL (32.0-36.0); Mean Corpuscular Volume 96.2 fL (78.0-98.0); Platelet Count 263 thou/uL (130-400); RBC Distribution Width 15.1 % (11.5-14.5); Red Blood Cell (RBC) Count 3.37 mill/uL (4.70-6.10); White Blood Cell (WBC) Count 6.2 thou/uL (4.8-10.8)
[2019-11-20 04:57] LABS: Anion Gap 9 mmol/L (10-20); BUN (Urea Nitrogen) 41 mg/dL (8.4-25.7); Calc. Creatinine Clearance 31 mL/min (70-130); Calcium 8.8 mg/dL (7.8-10.44); Carbon Dioxide 28 mmol/L (23-31); Chloride 107 mmol/L (98-107); Estimated GFR-MDRD 29; Glucose 154 mg/dL (83-110); Magnesium 2.6 mg/dL (1.6-2.6); Potassium 4.4 mmol/L (3.5-5.1); Sodium 140 mmol/L (136-145)
[2019-11-20] MEDS: Levothyroxine Sodium 50 MCG TAB PO SCH (05:34)
[2019-11-20] MEDS: Apixaban 5 MG TAB PO SCH (08:50)
[2019-11-20] MEDS: Amiodarone 200 MG TAB PO SCH (08:50)
[2019-11-20] MEDS: Bisacodyl 5 MG TAB PO SCH (08:50)
[2019-11-20] MEDS: Aspirin Chewable 81 MG TAB PO SCH (08:50)
[2019-11-20] MEDS: Clopidogrel Bisulfate 75 MG TAB PO SCH (08:51)
[2019-11-20] MEDS: Potassium Chloride 10 MEQ TAB PO SCH (08:52)
[2019-11-20] MEDS: Insulin Glargine 8 UNITS in Pre-Filled Syringe SC SCH (08:52)
[2019-11-20] MEDS: Torsemide 20 MG TAB PO SCH (08:54)
[2019-11-20] MEDS: HumaLOG 300 UNITS/3 ML VIAL SC PRN ×2 (08:54→11:55)
[2019-11-20 11:53] VITALS: BP 104/67; TEMP 98.8
--- NOTE | 2019-11-21 11:22 | DIS ---
DATE OF ADMISSION: 11/07/2019 DATE OF DISCHARGE: 11/20/2019 DISCHARGE DISPOSITION: Home with hospice. PRIMARY DISCHARGE DIAGNOSES: 1. [id number] congestive heart failure exacerbation with ejection fraction of around 10% to 15%, [place] Heart Association class III/IV. 2. Chronic kidney disease stage 3 with acute kidney injury on top of it. 3. Diabetes mellitus type 2. 4. History of cerebrovascular accident in the past. 5. Dementia. 6. Hypertension. 7. Dyslipidemia. 8. Paroxysmal atrial fibrillation. 9. Coronary artery disease. PROCEDURES DONE DURING HOSPITALIZATION: The patient has had chest x-ray done on the day of admission showed pulmonary vascular congestion with cardiomegaly. Echo with 2D Doppler showed EF of 10% to 15%, moderate mitral regurgitation, IVC was dilated. CT of chest done on 11/11/2019 showed incidental finding of 1.5 x 2.3 cm thin-walled cyst in the tail of pancreas. The patient had 3-vessel coronary artery calcific disease seen on the CT of chest, had a PICC line placed on the 12 of November and repeat PICC line on the . Discharge H and H of 10 and 32, platelet count 263, MCV was 96 with white count of 6. BUN 41, creatinine 2.6 on the day of discharge. BNP was 1509 on the day of admission. Initial creatinine was 2.3, BUN was 46 on the day of admission. INPATIENT CONSULTS: 1. Dr. Fernando Estrada for heart failure. 2. Dr. Florez/Boby for Pulmonology. DISCHARGE MEDICATIONS: 1. Atorvastatin 80 mg p.o. at bedtime. 2. Zetia 10 mg p.o. at bedtime. 3. Synthroid 50 mcg p.o. daily. 4. Amiodarone 200 mg p.o. daily. 5. Aspirin 81 mg p.o. daily. 6. Coreg 3.125 mg p.o. twice daily. 7. Lantus 8 units subcu twice daily. 8. K-Dur 10 mEq p.o. daily. 9. Risperdal 1 mg p.o. at bedtime. 10. Torsemide 40 mg p.o. daily. DISCHARGE PLAN: The patient to follow up with his primary care physician in 1 week, it is Dr. Robert Watters> BRIEF COURSE DURING HOSPITALIZATION: The patient initially got admitted on the for [id number] CHF exacerbation with systolic dysfunction. He had known ejection fraction of around 10% to 15%. The patient was admitted to ICU and was placed on milrinone and later dobutamine drips. He was closely monitored by Dr. Fernando Estrada for heart failure management. He has had diuresis done. The patient has underlying dementia and pulled out PICC line 2 times. In view of underlying severe systolic dysfunction, chronic kidney disease, and dementia with behavioral disturbances, the patient had hospice referral. He has been accepted by [facility], which will arrange hospice at his home. He has been cleared by Dr. Fernando Estrada for discharge to hospice. Please note, I have seen and examined the patient on the day of discharge. His overall prognosis is poor. Job ID: [id number]
== END 2019-11-20 13:40 | disposition hospice, home (50) | DRG 291 ==
LOC: ERS 14:59 → CCU 17:29 → IMCU/EMU 11-10 11:13 → 2NO 11-17 15:51
PROVIDERS: ADMIT Internal Medicine; ATTEND Internal Medicine
PROC: 3E0234Z Introduction of Serum, Toxoid and Vaccine into Muscle, Percutaneous Approach (ICD-10-PCS; 2019-11-08)
PROC: 02HV33Z Insertion of Infusion Device into Superior Vena Cava, Percutaneous Approach (ICD-10-PCS; principal; 2019-11-12)
PROC: 02HV33Z Insertion of Infusion Device into Superior Vena Cava, Percutaneous Approach (ICD-10-PCS; 2019-11-15)
PROC: B518ZZA Fluoroscopy of Superior Vena Cava, Guidance (ICD-10-PCS; 2019-11-15)
DX: I13.0 Hypertensive heart and chronic kidney disease with heart failure and stage 1 through stage 4 chronic kidney disease, or unspecified chronic kidney disease (principal); I50.23 Acute on chronic systolic (congestive) heart failure; N17.9 Acute kidney failure, unspecified; G93.40 Encephalopathy, unspecified; I69.951 Hemiplegia and hemiparesis following unspecified cerebrovascular disease affecting right dominant side; F02.81 Dementia in other diseases classified elsewhere, unspecified severity, with behavioral disturbance; Z23 Encounter for immunization; Z66 Do not resuscitate; Z51.5 Encounter for palliative care; I42.0 Dilated cardiomyopathy; E78.5 Hyperlipidemia, unspecified; E78.00 Pure hypercholesterolemia, unspecified; N18.3 Chronic kidney disease, stage 3 (moderate); F32.9 Major depressive disorder, single episode, unspecified; E11.22 Type 2 diabetes mellitus with diabetic chronic kidney disease; I25.10 Atherosclerotic heart disease of native coronary artery without angina pectoris; G30.9 Alzheimer's disease, unspecified; I48.0 Paroxysmal atrial fibrillation; E11.65 Type 2 diabetes mellitus with hyperglycemia; Z87.891 Personal history of nicotine dependence; Z79.82 Long term (current) use of aspirin; Z79.01 Long term (current) use of anticoagulants; Z79.4 Long term (current) use of insulin; I25.2 Old myocardial infarction; Z95.5 Presence of coronary angioplasty implant and graft; Z79.899 Other long term (current) drug therapy; Z95.810 Presence of automatic (implantable) cardiac defibrillator; I69.928 Other speech and language deficits following unspecified cerebrovascular disease; K59.00 Constipation, unspecified
CPT/HCPCS: 36415; 36416; 36569; 71045; 71250; 80048; 80053; 81015; 82550; 82553; 83735; 83880; 84484; 85025; 85027; 85610; 85730; 90471; 90670; 93005; 93306; 93798; 94640; 94760; 96365; 96375; C1751; G0009; J0282; J1250; J1630; J1644; J1650; J1815; J1940; J2060; J2260; J3490; J7070; J7620; P9045; P9047